=== PATIENT | male | born 1950 | race Two or more races ===

== ENCOUNTER 2022-11-20 18:16 | Emergency (ER) | payer MEDICARE, MEDICAID ==
[~2022-11-20] VITALS: Ht 177.8 cm; Wt 80.0 kg
[2022-11-20 18:50] LABS: Basophils # (auto) 0.1 10 ^3/uL (0-0.2); Basophils % (auto) 1.3 % (0.0-2.0); Eosinophils # (auto) 0 10 ^3/uL (0-0.8); Eosinophils % (auto) 0.5 % (0.0-7.0); Hematocrit 37.8 % (41.0-53.0); Hemoglobin 12.5 g/dL (13.5-17.5); Lymphocytes # (auto) 1.2 10 ^3/uL (0.4-5.4); Lymphocytes % (auto) 13.6 % (10.0-50.0); Mean Corpuscular Hemoglobin 30.2 pg (28.0-32.0); Mean Corpuscular Hgb Conc. 33.1 g/dL (32.0-36.0); Mean Corpuscular Volume 91.3 fL (80.0-100.0); Monocytes # (auto) 0.4 10 ^3/uL (0-1.3); Monocytes % (auto) 4.2 % (0.0-12.0); Neutrophils # (auto) 7.4 10 ^3/uL (1.6-8.6); Neutrophils % (auto) 80.4 % (37.0-80.0); Red Blood Cells 4.14 10^6/uL (4.5-5.90); White Blood Cell 9.2 10^3/uL (4.4-10.8)
[2022-11-20 19:02] LABS: Albumin 3.2 g/dL (3.4-5.0); Calcium 9.2 mg/dL (8.5-10.1); Magnesium 2.5 mg/dL (1.6-2.6); Potassium 4.5 mmol/L (3.5-5.1)
[2022-11-20 19:06] LABS: BUN/Creatinine Ratio 11.9 (10.0-20.0); Bilirubin, Total 0.3 mg/dL (0.2-1.0); Total Protein 6.6 g/dL (6.4-8.2)
[2022-11-20 19:07] LABS: INR 1.01 (0.9-1.15); Partial Thromboplastin Time 25.4 sec (24.6-33.4)
[2022-11-20] MEDS: HYDROcodone-ACET 10/325MG TAB PO ONE ×2 (20:53→23:31)
[2022-11-21 00:01] LABS: Urine Bacteria NONE SEEN /hpf (None Seen); Urine Blood Negative /uL (Negative); Urine Hyaline Cast FEW /lpf (0 - 2); Urine Mucus FEW (None Seen); Urine Specific Gravity 1.026 (1.001-1.035); Urine WBC 5 /hpf (0 - 3); Urine WBC Clumps PRESENT /hpf (None Seen)
[2022-11-21] MEDS ORDERED: HYDR-4902 PO (00:52)
[2022-11-21] MEDS ORDERED: HYDROcodone-ACET 10/325MG TAB PO ONE ×2 (07:45→08:15)
[2022-11-21 08:03] VITALS: BP 131/81
== END 2022-11-21 08:45 | disposition home or self-care (01) ==
LOC: ER 18:16
DX: R07.89 Other chest pain (principal); Z79.899 Other long term (current) drug therapy
CPT/HCPCS: 36415; 71045; 80053; 81001; 83735; 84484; 85025; 85610; 85730; 93005

== ENCOUNTER 2022-12-06 16:49 | Emergency (ER) | payer MEDICARE, OTHER ==
[~2022-12-06] VITALS: Ht 177.8 cm; Wt 84.8 kg
[~2022-12-06 16:49] MED LIST: HYDR-4902 PO
[2022-12-06 17:18] LABS: Basophils # (auto) 0.1 10 ^3/uL (0-0.2); Basophils % (auto) 0.7 % (0.0-2.0); Eosinophils # (auto) 0.2 10 ^3/uL (0-0.8); Eosinophils % (auto) 1.9 % (0.0-7.0); Hematocrit 40.1 % (41.0-53.0); Hemoglobin 13.2 g/dL (13.5-17.5); Lymphocytes # (auto) 1.9 10 ^3/uL (0.4-5.4); Lymphocytes % (auto) 22.6 % (10.0-50.0); Mean Corpuscular Hemoglobin 30.9 pg (28.0-32.0); Mean Corpuscular Hgb Conc. 32.9 g/dL (32.0-36.0); Monocytes # (auto) 0.6 10 ^3/uL (0-1.3); Monocytes % (auto) 7.5 % (0.0-12.0); Neutrophils # (auto) 5.8 10 ^3/uL (1.6-8.6); Neutrophils % (auto) 67.3 % (37.0-80.0); Red Blood Cells 4.26 10^6/uL (4.5-5.90); Red Cell Distribution Width 14.8 % (11.8-14.3); White Blood Cell 8.6 10^3/uL (4.4-10.8)
[2022-12-06 17:44] LABS: Albumin 3.6 g/dL (3.4-5.0); Potassium 3.7 mmol/L (3.5-5.1)
[2022-12-06 17:48] LABS: BUN/Creatinine Ratio 17.3 (10.0-20.0); Bilirubin, Total 0.3 mg/dL (0.2-1.0); Total Protein 6.9 g/dL (6.4-8.2)
[2022-12-06] MEDS ORDERED: LIDOCAINE 2% JELLY 11ml (GLYDO) ONE (18:01)
[2022-12-06 18:34] LABS: Urine Bacteria FEW /hpf (None Seen); Urine Blood Negative /uL (Negative); Urine Hyaline Cast FEW /lpf (0 - 2); Urine Mucus FEW (None Seen); Urine Specific Gravity 1.031 (1.001-1.035); Urine WBC 3 /hpf (0 - 3)
[2022-12-06] MEDS ORDERED: TAM04C PO (19:18)
[2022-12-06 21:50] VITALS: BP 155/96
== END 2022-12-06 22:11 | disposition home or self-care (01) ==
LOC: ER 16:49
DX: R33.9 Retention of urine, unspecified (principal); N42.89 Other specified disorders of prostate; R07.9 Chest pain, unspecified; M54.9 Dorsalgia, unspecified; Z88.6 Allergy status to analgesic agent
CPT/HCPCS: 36415; 51702; 80053; 81001; 84484; 85025; 93005

== ENCOUNTER 2022-12-08 06:09 | Emergency (ER) | payer MEDICARE, OTHER ==
[~2022-12-08] VITALS: Ht 177.8 cm; Wt 83.1 kg
[~2022-12-08 06:09] MED LIST changes: +TAM04C PO
[2022-12-08 06:32] VITALS: BP 148/93
[2022-12-08] MEDS ORDERED: AZITTAB PO (08:44)
[2022-12-08] MEDS ORDERED: BENZ100C19 PO (08:44)
== END 2022-12-08 09:16 | disposition home or self-care (01) ==
LOC: ER 06:09
DX: M25.50 Pain in unspecified joint (principal); R05.9 Cough, unspecified; R07.89 Other chest pain; Z79.899 Other long term (current) drug therapy
CPT/HCPCS: 71045

== ENCOUNTER 2022-12-11 13:59 | Emergency (ER) | payer MEDICARE, OTHER ==
[~2022-12-11] VITALS: Ht 177.8 cm; Wt 81.0 kg
[~2022-12-11 13:59] MED LIST changes: +AZITTAB PO; +BENZ100C19 PO
[2022-12-11] MEDS ORDERED: ACETAMINOPHEN 500 MG TAB PO ONE (14:30)
[2022-12-11 14:52] LABS: Basophils # (auto) 0 10 ^3/uL (0-0.2); Basophils % (auto) 0.8 % (0.0-2.0); Eosinophils # (auto) 0.1 10 ^3/uL (0-0.8); Eosinophils % (auto) 2.3 % (0.0-7.0); Hematocrit 41.4 % (41.0-53.0); Hemoglobin 13.6 g/dL (13.5-17.5); Lymphocytes # (auto) 2.2 10 ^3/uL (0.4-5.4); Lymphocytes % (auto) 35.7 % (10.0-50.0); Mean Corpuscular Hemoglobin 30.9 pg (28.0-32.0); Mean Corpuscular Hgb Conc. 32.8 g/dL (32.0-36.0); Monocytes # (auto) 0.4 10 ^3/uL (0-1.3); Monocytes % (auto) 6.4 % (0.0-12.0); Neutrophils # (auto) 3.4 10 ^3/uL (1.6-8.6); Neutrophils % (auto) 54.8 % (37.0-80.0); Nucleated Red Blood Cells % 0.2 %; Red Blood Cells 4.41 10^6/uL (4.5-5.90); Red Cell Distribution Width 14.4 % (11.8-14.3); White Blood Cell 6.2 10^3/uL (4.4-10.8)
[2022-12-11 15:06] LABS: Albumin 3.3 g/dL (3.4-5.0); Calcium 9.1 mg/dL (8.5-10.1); Potassium 3.9 mmol/L (3.5-5.1)
[2022-12-11 15:32] LABS: BUN/Creatinine Ratio 8.8 (10.0-20.0); Bilirubin, Total 0.3 mg/dL (0.2-1.0); Total Protein 6.9 g/dL (6.4-8.2)
[2022-12-11 17:32] LABS: Urine Bacteria NONE SEEN /hpf (None Seen); Urine Blood Negative /uL (Negative); Urine Specific Gravity 1.006 (1.001-1.035); Urine WBC <1 /hpf (0 - 3)
[2022-12-11 18:17] VITALS: BP 157/76
[2022-12-11] MEDS ORDERED: TAM04C PO (18:48)
[2022-12-11] MEDS ORDERED: HYDR-4902 PO (18:48)
== END 2022-12-11 18:56 | disposition home or self-care (01) ==
LOC: ER 13:59
DX: N40.0 Benign prostatic hyperplasia without lower urinary tract symptoms (principal); M79.18 Myalgia, other site; Z88.6 Allergy status to analgesic agent
CPT/HCPCS: 36415; 71046; 80053; 81001; 84484; 85025

== ENCOUNTER 2022-12-23 10:56 | Emergency (ER) | payer MEDICARE, OTHER ==
[~2022-12-23] VITALS: Ht 177.8 cm; Wt 81.0 kg
[2022-12-23 12:02] VITALS: BP 121/74
[2022-12-23] MEDS ORDERED: MELO7.5T9 PO (13:06)
[2022-12-23] MEDS ORDERED: ACETAMINOPHEN 500 MG TAB PO ONE (13:15)
== END 2022-12-23 13:15 | disposition home or self-care (01) ==
LOC: ER 10:56
DX: M19.011 Primary osteoarthritis, right shoulder (principal); S46.001A Unspecified injury of muscle(s) and tendon(s) of the rotator cuff of right shoulder, initial encounter; I10 Essential (primary) hypertension; Z88.6 Allergy status to analgesic agent; X58.XXXA Exposure to other specified factors, initial encounter; Y93.89 Activity, other specified; Y92.89 Other specified places as the place of occurrence of the external cause; Y99.8 Other external cause status
CPT/HCPCS: 73030

== ENCOUNTER 2023-01-14 21:32 | Emergency (ER) | payer MEDICARE, MEDICAID ==
[~2023-01-14] VITALS: Ht 175.3 cm; Wt 86.0 kg
[~2023-01-14 21:32] MED LIST changes: +MELO7.5T9 PO; -TAM04C PO; +TAMS-35 PO
[2023-01-15] MEDS ORDERED: HYDR-4798 PO (00:50)
[2023-01-15 00:53] VITALS: BP 145/86
[2023-01-15] MEDS ORDERED: HYDROcodone-ACET 10/325MG TAB PO ONE (01:00)
== END 2023-01-15 01:00 | disposition home or self-care (01) ==
LOC: ER 21:32
DX: M25.511 Pain in right shoulder (principal); M25.512 Pain in left shoulder; G89.29 Other chronic pain; M19.90 Unspecified osteoarthritis, unspecified site; Z88.6 Allergy status to analgesic agent

== ENCOUNTER 2023-01-26 20:53 | Emergency (ER) | payer MEDICARE, MEDICAID ==
[~2023-01-26] VITALS: Ht 180.3 cm; Wt 92.9 kg
[~2023-01-26 20:53] MED LIST changes: +HYDR-4798 PO
[2023-01-27] MEDS ORDERED: HYDR-4902 PO (00:29)
[2023-01-27 02:10] VITALS: BP 132/71
== END 2023-01-27 02:10 | disposition home or self-care (01) ==
LOC: ER 20:56
DX: M54.50 Low back pain, unspecified (principal); G89.29 Other chronic pain; Z76.0 Encounter for issue of repeat prescription; Z82.61 Family history of arthritis; Z88.0 Allergy status to penicillin; Z88.6 Allergy status to analgesic agent

== ENCOUNTER 2023-01-31 19:57 | Emergency (ER) | payer OTHER, MEDICAID ==
[~2023-01-31] VITALS: Ht 177.8 cm; Wt 68.0 kg
[2023-02-01 03:38] VITALS: BP 128/89
[2023-02-01] MEDS ORDERED: HYDROcodone-ACET 10/325MG TAB PO ONE (03:45)
[2023-02-01] MEDS ORDERED: HYDR-4798 PO (03:56)
== END 2023-02-01 04:10 | disposition home or self-care (01) ==
LOC: ER 20:00
DX: M25.552 Pain in left hip (principal); M25.551 Pain in right hip; Z76.0 Encounter for issue of repeat prescription; Z88.0 Allergy status to penicillin

== ENCOUNTER 2023-02-15 08:58 | Emergency (ER) | payer OTHER ==
[~2023-02-15] VITALS: Ht 177.8 cm; Wt 88.8 kg
[2023-02-15 09:05] VITALS: BP 147/84
[2023-02-15] MEDS ORDERED: HYDROcodone-ACET 10/325MG TAB PO ONE (09:45)
[2023-02-15] MEDS ORDERED: HYDR-4798 PO (11:16)
== END 2023-02-15 11:30 | disposition home or self-care (01) ==
LOC: ER 08:58
DX: M16.0 Bilateral primary osteoarthritis of hip (principal); M17.0 Bilateral primary osteoarthritis of knee; M19.012 Primary osteoarthritis, left shoulder; M19.011 Primary osteoarthritis, right shoulder; M25.552 Pain in left hip; M25.551 Pain in right hip; M25.512 Pain in left shoulder; M25.511 Pain in right shoulder; M25.562 Pain in left knee; M25.561 Pain in right knee; Z88.6 Allergy status to analgesic agent; Z88.0 Allergy status to penicillin; Z79.1 Long term (current) use of non-steroidal anti-inflammatories (NSAID); Z79.899 Other long term (current) drug therapy
CPT/HCPCS: 81002

== ENCOUNTER 2023-02-21 10:12 | Emergency (ER) | payer OTHER, MEDICAID ==
[~2023-02-21] VITALS: Ht 177.8 cm; Wt 86.9 kg
[2023-02-21] MEDS ORDERED: HYDROcodone-ACET 5/325MG TAB PO ONE (12:45)
[2023-02-21 13:42] VITALS: BP 141/69; PULSE 98; RESP 20; TEMP 98.2; O2SAT 96
[2023-02-21] MEDS ORDERED: CLIN300C70 PO (13:58)
[2023-02-21] MEDS ORDERED: ACET-1304 PO (13:58)
== END 2023-02-21 14:55 | disposition home or self-care (01) ==
LOC: ER 10:12
DX: K02.9 Dental caries, unspecified (principal); R51.9 Headache, unspecified; Z79.2 Long term (current) use of antibiotics; Z79.899 Other long term (current) drug therapy; Z88.0 Allergy status to penicillin; Z88.8 Allergy status to other drugs, medicaments and biological substances
CPT/HCPCS: 70486

== ENCOUNTER 2023-03-22 14:04 | Inpatient (IN) | payer OTHER, MEDICAID ==
[~2023-03-22] VITALS: Ht 177.8 cm; Wt 86.3 kg
[~2023-03-22 14:04] MED LIST changes: +ACET-1304 PO; +CLIN300C70 PO
[2023-03-22 15:22] LABS: Urine Bacteria NONE SEEN /hpf (None Seen); Urine Blood Negative /uL (Negative); Urine Clarity HAZY (Clear); Urine Color Yellow (Yellow); Urine Protein, UAD Negative (Negative); Urine Specific Gravity 1.019 (1.001-1.035); Urine Urobilinogen Normal (Negative); Urine WBC 2 /hpf (0 - 3); Urine pH 6.5 (5.0-8.0)
[2023-03-22 20:11] LABS: Mean Corpuscular Hgb Conc. 33.1 g/dL (32.0-36.0); Nucleated Red Blood Cells % 0.1 %; White Blood Cell 5.7 10^3/uL (4.4-10.8)
[2023-03-22 20:16] LABS: Basophils # (auto) 0 10 ^3/uL (0-0.2); Basophils % (auto) 0.7 % (0.0-2.0); Eosinophils # (auto) 0.1 10 ^3/uL (0-0.8); Eosinophils % (auto) 2.5 % (0.0-7.0); Hematocrit 42.1 % (41.0-53.0); Hemoglobin 13.9 g/dL (13.5-17.5); Lymphocytes # (auto) 1.6 10 ^3/uL (0.4-5.4); Lymphocytes % (auto) 28.8 % (10.0-50.0); Mean Corpuscular Hemoglobin 31.8 pg (28.0-32.0); Monocytes # (auto) 0.5 10 ^3/uL (0-1.3); Monocytes % (auto) 8.1 % (0.0-12.0); Neutrophils # (auto) 3.4 10 ^3/uL (1.6-8.6); Neutrophils % (auto) 59.9 % (37.0-80.0); Red Blood Cells 4.39 10^6/uL (4.5-5.90); Red Cell Distribution Width 14.9 % (11.8-14.3)
[2023-03-22 20:40] LABS: Albumin 3.6 g/dL (3.4-5.0); Calcium 9.1 mg/dL (8.5-10.1); Potassium 4.1 mmol/L (3.5-5.1)
[2023-03-22 20:43] LABS: BUN/Creatinine Ratio 11.1 (10.0-20.0); Bilirubin, Total 0.5 mg/dL (0.2-1.0); Total Protein 7.9 g/dL (6.4-8.2)
[2023-03-23] MEDS ORDERED: NITROGLYCERIN 0.4 MG SL TAB SL PRN (01:15)
[2023-03-23] MEDS ORDERED: MORPHINE SULFATE INJ 2 MG/ml SYRG IV PRN ×2 (01:15)
[2023-03-23] MEDS ORDERED: DOCUSATE SOD 100 MG CAP PO PRN (01:15)
[2023-03-23] MEDS ORDERED: D5W/SOD CHL 0.45% 1,000 ML IV ONE (01:15)
[2023-03-23] MEDS ORDERED: ACETAMINOPHEN 325 MG TAB PO PRN (01:15)
[2023-03-23] MEDS ORDERED: ONDANSETRON HCL 4 MG/2 ML VIAL IV PRN (01:15)
[2023-03-23] MEDS ORDERED: DEXTROSE (50%) 50ML SYRG IV PRN (04:00)
[2023-03-23 04:57] LABS: Basophils # (auto) 0 10 ^3/uL (0-0.2); Basophils % (auto) 0.6 % (0.0-2.0); Eosinophils # (auto) 0.2 10 ^3/uL (0-0.8); Eosinophils % (auto) 2.9 % (0.0-7.0); Hematocrit 39.3 % (41.0-53.0); Hemoglobin 13.2 g/dL (13.5-17.5); Lymphocytes # (auto) 1.6 10 ^3/uL (0.4-5.4); Lymphocytes % (auto) 31.4 % (10.0-50.0); Mean Corpuscular Hemoglobin 32.2 pg (28.0-32.0); Mean Corpuscular Hgb Conc. 33.5 g/dL (32.0-36.0); Mean Corpuscular Volume 96.1 fL (80.0-100.0); Monocytes # (auto) 0.4 10 ^3/uL (0-1.3); Monocytes % (auto) 7.7 % (0.0-12.0); Neutrophils % (auto) 57.4 % (37.0-80.0); Nucleated Red Blood Cells % 0.2 %; Red Blood Cells 4.09 10^6/uL (4.5-5.90); Red Cell Distribution Width 14.7 % (11.8-14.3); White Blood Cell 5.2 10^3/uL (4.4-10.8)
[2023-03-23 05:11] LABS: BUN/Creatinine Ratio 11.3 (10.0-20.0)
[2023-03-23] MEDS: InsuLIN REG 1unit/0.01ml Soln (100units/ml) SC SCH ×4 (06:00→23:27)
[2023-03-23] MEDS: ACCU-CHEK COMFORT CURVE STRIP VI SCH ×4 (06:16→23:27)
[2023-03-23 08:08] VITALS: PULSE 63; RESP 12; O2SAT 95
[2023-03-23 09:05] LABS: INR 1.06 (0.9-1.15); Partial Thromboplastin Time 30.8 SEC (24.5-34.5); Prothrombin Time 11.1 sec (9.3-11.8)
[2023-03-23] MEDS: ENOXAPARIN SOD 40 MG/0.4 ML SYRINGE SC SCH (10:21)
[2023-03-23] MEDS: TAMSULOSIN HYDROCHLORIDE 0.4 MG CAP PO SCH (17:17)
[2023-03-23 23:00] VITALS: BP 146/86; PULSE 85; RESP 14; TEMP 98.2; O2SAT 96
[2023-03-23 23:35] VITALS: PULSE 85; RESP 14; O2SAT 96
[2023-03-24] VITALS (8 sets, daily range): BP systolic 96–146; BP diastolic 66–86; PULSE 62–85; RESP 14–20; TEMP 98.1–98.8; O2SAT 92–100
[2023-03-24] MEDS: HYDROcodone-ACET 5/325MG TAB PO PRN ×3 (00:18→22:37)
[2023-03-24] MEDS: ACCU-CHEK COMFORT CURVE STRIP VI SCH ×3 (05:55→17:20)
[2023-03-24] MEDS: InsuLIN REG 1unit/0.01ml Soln (100units/ml) SC SCH ×3 (05:55→17:19)
[2023-03-24 06:12] LABS: Basophils # (auto) 0 10 ^3/uL (0-0.2); Basophils % (auto) 0.6 % (0.0-2.0); Eosinophils # (auto) 0.1 10 ^3/uL (0-0.8); Eosinophils % (auto) 1.8 % (0.0-7.0); Hematocrit 42.2 % (41.0-53.0); Hemoglobin 14.1 g/dL (13.5-17.5); Lymphocytes # (auto) 1.7 10 ^3/uL (0.4-5.4); Lymphocytes % (auto) 33.9 % (10.0-50.0); Mean Corpuscular Hgb Conc. 33.3 g/dL (32.0-36.0); Monocytes # (auto) 0.4 10 ^3/uL (0-1.3); Monocytes % (auto) 7.7 % (0.0-12.0); Neutrophils # (auto) 2.8 10 ^3/uL (1.6-8.6); Nucleated Red Blood Cells % 0.1 %; Red Cell Distribution Width 14.6 % (11.8-14.3)
[2023-03-24 06:32] LABS: BUN/Creatinine Ratio 8.7 (10.0-20.0); Calcium 8.8 mg/dL (8.5-10.1); Potassium 4.2 mmol/L (3.5-5.1)
[2023-03-24] MEDS: ENOXAPARIN SOD 40 MG/0.4 ML SYRINGE SC SCH (08:50)
[2023-03-24] MEDS ORDERED: CIPROFLOXACIN 400MG/200ML 200 ML IV ONE (13:00)
[2023-03-24] MEDS: IOHEXOL 300 MG/ML 100ML BOTTLE IJ ONE ×2 (13:39→14:40)
[2023-03-24] MEDS ORDERED: MIDAZOLAM HCL 2MG/2ML 2ml VIAL (1mg/ml) ONE (13:59)
[2023-03-24] MEDS ORDERED: fentaNYL CITRATE 100 MCG/2 ML VL ONE (13:59)
[2023-03-24] MEDS ORDERED: PROPOFOL 10 MG/ML 20 ML IV ONE ×2 (14:02→15:14)
[2023-03-24] MEDS ORDERED: ONDANSETRON HCL 4 MG/2 ML VIAL ONE (14:02)
[2023-03-24] MEDS ORDERED: LIDOCAINE 2% (LOCAL ANESTH.) PF 5ml SDV ONE (14:02)
[2023-03-24] MEDS ORDERED: IOHEXOL 300 MG/ML 100ML BOTTLE IJ ONE (14:40)
[2023-03-24] MEDS ORDERED: NEOSTIGMINE 1 MG/ML INJ (10mg/10ML VIAL) ONE (15:15)
[2023-03-24] MEDS ORDERED: GLYCOPYRROLATE 0.2 MG/ML 1ML VIAL ONE (15:15)
[2023-03-24] MEDS ORDERED: ONDANSETRON HCL 4 MG/2 ML VIAL IV PRN (15:30)
[2023-03-24] MEDS ORDERED: HYDROmorphone HCL 2 MG/ML VL/or syr IV PRN ×2 (15:30)
[2023-03-24] MEDS: TAMSULOSIN HYDROCHLORIDE 0.4 MG CAP PO SCH (17:19)
[2023-03-24] MEDS ORDERED: SUCCINYLCHOLINE CHLORIDE 20 MG/ML 10ML VIAL IV ONE (19:29)
[2023-03-24] MEDS ORDERED: ROCURONIUM 10MG/ML 10ML VIAL IV ONE (19:29)
[2023-03-24 20:37] LABS: Urine Bacteria FEW /hpf (None Seen); Urine Blood Negative /uL (Negative); Urine Clarity Clear (Clear); Urine Color Yellow (Yellow); Urine Protein, UAD Negative (Negative); Urine Urobilinogen Normal (Negative); Urine WBC <1 /hpf (0 - 3); Urine pH 6.5 (5.0-8.0)
[2023-03-25] MEDS: HYDROcodone-ACET 5/325MG TAB PO PRN (01:29)
[2023-03-25 05:00] VITALS: BP 105/67; PULSE 79; RESP 20; TEMP 98.4; O2SAT 100
[2023-03-25] MEDS: ACCU-CHEK COMFORT CURVE STRIP VI SCH ×4 (05:49→18:00)
[2023-03-25] MEDS: InsuLIN REG 1unit/0.01ml Soln (100units/ml) SC SCH ×4 (05:49→18:00)
[2023-03-25 06:55] LABS: Basophils # (auto) 0 10 ^3/uL (0-0.2); Basophils % (auto) 0.6 % (0.0-2.0); Eosinophils # (auto) 0.1 10 ^3/uL (0-0.8); Eosinophils % (auto) 1.4 % (0.0-7.0); Hematocrit 41.2 % (41.0-53.0); Hemoglobin 13.7 g/dL (13.5-17.5); Lymphocytes # (auto) 1.2 10 ^3/uL (0.4-5.4); Lymphocytes % (auto) 24.2 % (10.0-50.0); Mean Corpuscular Hemoglobin 31.8 pg (28.0-32.0); Mean Corpuscular Hgb Conc. 33.2 g/dL (32.0-36.0); Mean Corpuscular Volume 95.8 fL (80.0-100.0); Monocytes # (auto) 0.4 10 ^3/uL (0-1.3); Monocytes % (auto) 7.1 % (0.0-12.0); Neutrophils # (auto) 3.4 10 ^3/uL (1.6-8.6); Neutrophils % (auto) 66.7 % (37.0-80.0); Red Cell Distribution Width 14.2 % (11.8-14.3); White Blood Cell 5.1 10^3/uL (4.4-10.8)
[2023-03-25 06:59] LABS: BUN/Creatinine Ratio 10.3 (10.0-20.0); Calcium 8.5 mg/dL (8.5-10.1); Potassium 3.7 mmol/L (3.5-5.1)
[2023-03-25] MEDS ORDERED: BUPIVACAINE IMPLANT 3x100mg IL ONE (07:00)
[2023-03-25] MEDS: ENOXAPARIN SOD 40 MG/0.4 ML SYRINGE SC SCH (08:03)
[2023-03-25 08:30] VITALS: RESP 18
[2023-03-25 09:00] VITALS: BP 109/67; PULSE 63; RESP 18; TEMP 99; O2SAT 96
[2023-03-25] MEDS ORDERED: ONDANSETRON HCL 4 MG/2 ML VIAL ONE (10:26)
[2023-03-25] MEDS ORDERED: fentaNYL CITRATE 100 MCG/2 ML VL ONE (10:26)
[2023-03-25] MEDS ORDERED: SODIUM CHLORIDE LOCK 10 ML ONE (10:26)
[2023-03-25] MEDS ORDERED: LIDOCAINE 2% (LOCAL ANESTH.) PF 5ml SDV ONE (10:26)
[2023-03-25] MEDS ORDERED: PROPOFOL 10 MG/ML 20 ML IV ONE (10:26)
[2023-03-25] MEDS ORDERED: MEPERIDINE HCL (50 MG/ML) 1 ML VIAL ONE (10:26)
[2023-03-25] MEDS ORDERED: MIDAZOLAM HCL 2MG/2ML 2ml VIAL (1mg/ml) ONE (10:26)
[2023-03-25] MEDS ORDERED: DexAMETHasone SOD PHOS 10MG/1ML VIAL INJ ONE (10:26)
[2023-03-25] MEDS ORDERED: levoFLOXacin 500MG 100 ML IV ONE (10:45)
[2023-03-25] MEDS ORDERED: MORPHINE SULFATE INJ 2 MG/ml SYRG IV PRN (12:15)
[2023-03-25] MEDS ORDERED: HYDROmorphone HCL 2 MG/ML VL/or syr IV PRN ×2 (12:15)
[2023-03-25] MEDS ORDERED: METOCLOPRAMIDE HCL 5MG/ml INJ 2ml VIAL IV PRN (12:15)
[2023-03-25] MEDS ORDERED: SUGAMMADEX 200mg/2ml Vial (100MG/ML) IV ONE (13:58)
[2023-03-25] MEDS: TAMSULOSIN HYDROCHLORIDE 0.4 MG CAP PO SCH (18:00)
== END 2023-03-25 19:30 | disposition home or self-care (01) | DRG 395 ==
LOC: ER 14:04 → OVERFLOW 03-23 01:24 → WEST WING 03-23 22:11
PROVIDERS: ADMIT Nurse Practitioner Family; ATTEND Internal Medicine
PROC: 0TJB8ZZ Inspection of Bladder, Via Natural or Artificial Opening Endoscopic (ICD-10-PCS; principal; 2023-03-24 13:57)
PROC: BT1B1ZZ Fluoroscopy of Bladder and Urethra using Low Osmolar Contrast (ICD-10-PCS; 2023-03-24 13:57)
DX: K40.90 Unilateral inguinal hernia, without obstruction or gangrene, not specified as recurrent (principal); N30.90 Cystitis, unspecified without hematuria; E66.3 Overweight; M62.08 Separation of muscle (nontraumatic), other site; N40.0 Benign prostatic hyperplasia without lower urinary tract symptoms; Z79.899 Other long term (current) drug therapy; Z68.27 Body mass index [BMI] 27.0-27.9, adult; Z88.0 Allergy status to penicillin; Z88.6 Allergy status to analgesic agent
CPT/HCPCS: 36415; 71045; 74018; 74176; 76000; 80048; 80053; 81001; 82962; 83605; 83690; 85025; 85610; 85730; 87081; 93005; 93306; G0378; J0330; J1100; J1956; J2001; J2250; J2405; J2704

== ENCOUNTER 2023-03-27 18:58 | Emergency (ER) | payer OTHER, MEDICAID ==
[~2023-03-27] VITALS: Ht 177.8 cm; Wt 84.9 kg
[~2023-03-27 18:58] MED LIST changes: -AZITTAB PO; -CLIN300C70 PO; -HYDR-4902 PO; -MELO7.5T9 PO
[2023-03-27] MEDS ORDERED: KETOROLAC TROMETH 60MG/2ML VIAL IM ONE (21:30)
[2023-03-27] MEDS ORDERED: HYDROcodone-ACET 10/325MG TAB PO ONE (21:30)
[2023-03-27] MEDS ORDERED: ACET300T58 PO (22:00)
[2023-03-27 22:55] VITALS: BP 149/86; PULSE 78; RESP 20; TEMP 98
[2023-03-27 23:18] VITALS: O2SAT 99
== END 2023-03-27 22:55 | disposition home or self-care (01) ==
LOC: ER 18:58
DX: M19.012 Primary osteoarthritis, left shoulder (principal); M19.011 Primary osteoarthritis, right shoulder; M17.0 Bilateral primary osteoarthritis of knee; M16.0 Bilateral primary osteoarthritis of hip; Z79.899 Other long term (current) drug therapy; Z88.0 Allergy status to penicillin; Z88.8 Allergy status to other drugs, medicaments and biological substances
CPT/HCPCS: 96372; 99283; J1885

== ENCOUNTER 2023-04-07 13:42 | Emergency (ER) | payer OTHER, MEDICAID ==
[~2023-04-07] VITALS: Ht 177.8 cm; Wt 84.9 kg
[~2023-04-07 13:42] MED LIST changes: +ACET300T58 PO
[2023-04-07 14:32] LABS: Basophils # (auto) 0 10 ^3/uL (0-0.2); Basophils % (auto) 0.6 % (0.0-2.0); Eosinophils # (auto) 0.1 10 ^3/uL (0-0.8); Hematocrit 40.4 % (41.0-53.0); Hemoglobin 13.3 g/dL (13.5-17.5); Lymphocytes # (auto) 1.7 10 ^3/uL (0.4-5.4); Lymphocytes % (auto) 27.4 % (10.0-50.0); Mean Corpuscular Hemoglobin 31.4 pg (28.0-32.0); Mean Corpuscular Hgb Conc. 32.9 g/dL (32.0-36.0); Mean Corpuscular Volume 95.2 fL (80.0-100.0); Monocytes # (auto) 0.4 10 ^3/uL (0-1.3); Neutrophils # (auto) 3.8 10 ^3/uL (1.6-8.6); Nucleated Red Blood Cells % 0.1 %; Red Blood Cells 4.25 10^6/uL (4.5-5.90); Red Cell Distribution Width 13.9 % (11.8-14.3); White Blood Cell 6.1 10^3/uL (4.4-10.8)
[2023-04-07] MEDS ORDERED: HYDR-4902 PO (14:38)
[2023-04-07 15:08] LABS: Alanine Aminotransferase 14 U/L (7-40); Albumin 4.1 g/dL (3.2-4.8); Alkaline Phosphatase 85 U/L (46-116); Anion Gap 6.7 (5-15); Aspartate Aminotransferase < 8 U/L (13-40); BUN/Creatinine Ratio 7.9 (10.0-20.0); Bilirubin, Total 0.4 mg/dL (0.2-1.0); Blood Urea Nitrogen 7 mg/dL (9-23); Calcium 9.3 mg/dL (8.5-10.1); Carbon Dioxide 26.3 mmol/L (20-30); Chloride 108 mmol/L (98-107); Glucose 113 mg/dL (74-106); Potassium 3.9 mmol/L (3.5-5.1); Sodium 141 mmol/L (136-145)
[2023-04-07 15:09] LABS: Total Protein 7.3 g/dL (5.7-8.2)
[2023-04-07 15:28] VITALS: BP 143/85; PULSE 73; RESP 18; TEMP 98; O2SAT 98
== END 2023-04-07 15:30 | disposition home or self-care (01) ==
LOC: ER 13:42
DX: M25.552 Pain in left hip (principal); M25.551 Pain in right hip; Z59.00 Homelessness unspecified; Z88.0 Allergy status to penicillin; Z88.6 Allergy status to analgesic agent
CPT/HCPCS: 36415; 80053; 85025

== ENCOUNTER 2023-04-14 13:33 | Emergency (ER) | payer OTHER, MEDICAID ==
[~2023-04-14] VITALS: Ht 175.3 cm; Wt 81.8 kg
[~2023-04-14 13:33] MED LIST changes: +HYDR-4902 PO
[2023-04-14 14:00] VITALS: BP 121/81; PULSE 98; RESP 16; O2SAT 96
[2023-04-14 15:08] LABS: Basophils # (auto) 0.1 10 ^3/uL (0-0.2); Eosinophils # (auto) 0.2 10 ^3/uL (0-0.8); Eosinophils % (auto) 2.4 % (0.0-7.0); Hematocrit 40.9 % (41.0-53.0); Hemoglobin 13.5 g/dL (13.5-17.5); Lymphocytes % (auto) 30.4 % (10.0-50.0); Mean Corpuscular Hemoglobin 31.5 pg (28.0-32.0); Mean Corpuscular Volume 95.6 fL (80.0-100.0); Monocytes # (auto) 0.4 10 ^3/uL (0-1.3); Monocytes % (auto) 6.2 % (0.0-12.0); Neutrophils # (auto) 3.9 10 ^3/uL (1.6-8.6); Nucleated Red Blood Cells % 0.1 %; Red Blood Cells 4.27 10^6/uL (4.5-5.90); Red Cell Distribution Width 14.3 % (11.8-14.3); White Blood Cell 6.5 10^3/uL (4.4-10.8)
[2023-04-14 15:28] LABS: Alanine Aminotransferase 15 U/L (7-40); Albumin 4.1 g/dL (3.2-4.8); Alkaline Phosphatase 92 U/L (46-116); Anion Gap 5.8 (5-15); Aspartate Aminotransferase 14 U/L (13-40); BUN/Creatinine Ratio 13.1 (10.0-20.0); Blood Urea Nitrogen 11 mg/dL (9-23); Calcium 9.3 mg/dL (8.7-10.4); Carbon Dioxide 26.2 mmol/L (20-30); Chloride 106 mmol/L (98-107); Glucose 102 mg/dL (74-106); Potassium 4.4 mmol/L (3.5-5.1); Sodium 138 mmol/L (136-145)
[2023-04-14 15:29] LABS: Bilirubin, Total 0.4 mg/dL (0.2-1.0); Total Protein 6.9 g/dL (5.7-8.2)
[2023-04-14] MEDS ORDERED: DOCU-94 PO (15:53)
[2023-04-20] MEDS ORDERED: TRAM50TA2 PO (13:59)
== END 2023-04-14 18:16 | disposition home or self-care (01) ==
LOC: ER 13:33
DX: K40.90 Unilateral inguinal hernia, without obstruction or gangrene, not specified as recurrent (principal); K62.89 Other specified diseases of anus and rectum; Z88.0 Allergy status to penicillin; Z88.6 Allergy status to analgesic agent
CPT/HCPCS: 36415; 74176; 80053; 84484; 85025

== ENCOUNTER 2023-04-17 20:21 | Emergency (ER) | payer OTHER, MEDICAID ==
[~2023-04-17] VITALS: Ht 180.3 cm; Wt 84.5 kg
[2023-04-17 20:21] VITALS: BP 122/75; PULSE 85; RESP 16; O2SAT 98
[~2023-04-17 20:21] MED LIST changes: +DOCU-94 PO
[2023-04-20] MEDS ORDERED: TRAM50TA2 PO (13:59)
== END 2023-04-18 00:43 | disposition left against medical advice (07) ==
LOC: ER 20:25
DX: K62.89 Other specified diseases of anus and rectum (principal); Z53.21 Procedure and treatment not carried out due to patient leaving prior to being seen by health care provider

== ENCOUNTER 2023-05-07 18:55 | Emergency (ER) | payer OTHER, MEDICAID ==
[~2023-05-07] VITALS: Ht 177.8 cm; Wt 83.7 kg
[~2023-05-07 18:55] MED LIST changes: +TRAM50TA2 PO
[2023-05-07 19:03] VITALS: BP 126/84; TEMP 98.5
[2023-05-07] MEDS ORDERED: IBUP-1454 PO (22:26)
[2023-05-07 22:34] VITALS: PULSE 86; RESP 18; O2SAT 97
== END 2023-05-07 22:57 | disposition home or self-care (01) ==
LOC: ER 18:55
DX: G89.29 Other chronic pain (principal); M54.50 Low back pain, unspecified; M19.90 Unspecified osteoarthritis, unspecified site; Z59.00 Homelessness unspecified; Z79.899 Other long term (current) drug therapy; Z88.0 Allergy status to penicillin; Z88.8 Allergy status to other drugs, medicaments and biological substances

== ENCOUNTER 2023-05-21 19:16 | Emergency (ER) | payer OTHER, MEDICAID ==
[~2023-05-21] VITALS: Ht 172.7 cm; Wt 79.5 kg
[~2023-05-21 19:16] MED LIST changes: +IBUP-1454 PO
[2023-05-21] MEDS ORDERED: HYDROcodone-ACET 10/325MG TAB PO ONE (21:30)
[2023-05-22 00:05] VITALS: BP 138/90; PULSE 90; RESP 18; TEMP 98.3; O2SAT 97
== END 2023-05-22 00:17 | disposition home or self-care (01) ==
LOC: ER 19:16
DX: G89.29 Other chronic pain (principal); M54.42 Lumbago with sciatica, left side; M54.41 Lumbago with sciatica, right side; M19.90 Unspecified osteoarthritis, unspecified site; Z88.0 Allergy status to penicillin; Z88.8 Allergy status to other drugs, medicaments and biological substances; Z79.1 Long term (current) use of non-steroidal anti-inflammatories (NSAID); Z79.899 Other long term (current) drug therapy
CPT/HCPCS: 72100

== ENCOUNTER 2023-05-26 14:50 | Emergency (ER) | payer OTHER, MEDICAID ==
[~2023-05-26] VITALS: Ht 180.3 cm; Wt 85.8 kg
[2023-05-26 14:50] VITALS: BP 118/68; PULSE 78; RESP 18; TEMP 97.2; O2SAT 97
[2023-05-26] MEDS ORDERED: IBUP-1456 PO (16:35)
[2023-05-26] MEDS ORDERED: HYDROcodone-ACET 5/325MG TAB PO ONE (16:45)
== END 2023-05-26 17:04 | disposition home or self-care (01) ==
LOC: ER 14:50
DX: M16.0 Bilateral primary osteoarthritis of hip (principal); Z76.0 Encounter for issue of repeat prescription; Z79.1 Long term (current) use of non-steroidal anti-inflammatories (NSAID); Z79.899 Other long term (current) drug therapy; Z88.0 Allergy status to penicillin; Z88.8 Allergy status to other drugs, medicaments and biological substances

== ENCOUNTER 2023-07-14 13:54 | Emergency (ER) | payer OTHER, MEDICAID ==
[~2023-07-14] VITALS: Ht 180.3 cm; Wt 89.3 kg
[~2023-07-14 13:54] MED LIST changes: +IBUP-1456 PO
[2023-07-14] MEDS ORDERED: HYDR-4902 PO (14:52)
[2023-07-14 15:08] VITALS: BP 167/96; PULSE 74; RESP 17; TEMP 98.6; O2SAT 97
== END 2023-07-14 15:15 | disposition home or self-care (01) ==
LOC: ER 13:54
DX: G89.29 Other chronic pain (principal); M54.50 Low back pain, unspecified; Z59.00 Homelessness unspecified; Z79.1 Long term (current) use of non-steroidal anti-inflammatories (NSAID); Z79.899 Other long term (current) drug therapy; Z88.0 Allergy status to penicillin

== ENCOUNTER 2023-09-30 13:54 | Emergency (ER) | payer OTHER, MEDICAID ==
[~2023-09-30] VITALS: Ht 177.8 cm; Wt 87.3 kg
[~2023-09-30 13:54] MED LIST changes: +BENZ200C64 PO; +TAMIFLU PO
[2023-09-30] MEDS ORDERED: IBUP-1454 PO (14:21)
[2023-09-30] MEDS ORDERED: TAMS-35 PO (14:21)
[2023-09-30] MEDS ORDERED: HYDR-4902 PO (14:21)
[2023-09-30 14:46] VITALS: BP 159/91; PULSE 99; RESP 20; TEMP 98.5; O2SAT 95
== END 2023-09-30 14:47 | disposition home or self-care (01) ==
LOC: ER 13:54
DX: R39.15 Urgency of urination (principal); Z76.0 Encounter for issue of repeat prescription; Z88.0 Allergy status to penicillin; Z88.6 Allergy status to analgesic agent

== ENCOUNTER 2023-11-24 11:46 | Emergency (ER) | payer OTHER, MEDICAID ==
[~2023-11-24] VITALS: Ht 182.9 cm; Wt 68.1 kg
[2023-11-24] MEDS: HYDROcodone-ACET 5/325MG TAB PO ONE (12:47)
[2023-11-24 13:03] LABS: Urine Bacteria None Seen /hpf (None Seen)
[2023-11-24 13:04] VITALS: BP 107/67; PULSE 94; RESP 16; TEMP 98.6; O2SAT 96
[2023-11-24 13:26] LABS: Urine Blood Negative /uL (Negative); Urine Clarity Clear (Clear); Urine Color Yellow (Yellow); Urine Protein, UAD Negative (Negative); Urine Urobilinogen Normal (Negative); Urine WBC 1 /hpf (0 - 3); Urine pH 5.5 (5.0-9.0)
== END 2023-11-24 13:38 | disposition home or self-care (01) ==
LOC: ER 11:46
DX: R10.9 Unspecified abdominal pain (principal); G89.29 Other chronic pain; M19.90 Unspecified osteoarthritis, unspecified site; Z88.0 Allergy status to penicillin; Z88.8 Allergy status to other drugs, medicaments and biological substances; Z79.899 Other long term (current) drug therapy
CPT/HCPCS: 81001

== ENCOUNTER 2023-12-21 11:33 | Emergency (ER) | payer OTHER, MEDICAID ==
[~2023-12-21] VITALS: Ht 180.3 cm; Wt 88.1 kg
[2023-12-21 12:53] LABS: Urine Bacteria FEW /hpf (None Seen); Urine Blood Negative /uL (Negative); Urine Clarity Clear (Clear); Urine Color Light-Yellow (Yellow); Urine Protein, UAD Negative (Negative); Urine Specific Gravity 1.008 (1.001-1.035); Urine Urobilinogen Normal (Negative); Urine WBC 1 /hpf (0 - 3); Urine pH 5.5 (5.0-9.0)
[2023-12-21 14:42] VITALS: BP 149/89; PULSE 82; RESP 18; TEMP 97.9; O2SAT 97
== END 2023-12-21 14:50 | disposition home or self-care (01) ==
LOC: ER 11:33
DX: R10.2 Pelvic and perineal pain (principal); M19.90 Unspecified osteoarthritis, unspecified site; Z59.00 Homelessness unspecified; Z88.1 Allergy status to other antibiotic agents; Z88.8 Allergy status to other drugs, medicaments and biological substances; Z79.899 Other long term (current) drug therapy
CPT/HCPCS: 81001

== ENCOUNTER 2024-06-27 21:23 | Emergency (ER) | payer OTHER, MEDICAID ==
[~2024-06-27] VITALS: Ht 165.1 cm; Wt 68.2 kg
[2024-06-27 21:56] LABS: Basophils # (auto) 0 10 ^3/uL (0-0.2); Basophils % (auto) 0.6 % (0.0-2.0); Eosinophils # (auto) 0.2 10 ^3/uL (0-0.8); Eosinophils % (auto) 2.4 % (0.0-7.0); Hematocrit 39.9 % (41.0-53.0); Hemoglobin 13.3 g/dL (13.5-17.5); Lymphocytes # (auto) 1.3 10 ^3/uL (0.4-5.4); Lymphocytes % (auto) 20.3 % (10.0-50.0); Mean Corpuscular Hemoglobin 31.7 pg (28.0-32.0); Mean Corpuscular Hgb Conc. 33.3 g/dL (32.0-36.0); Mean Corpuscular Volume 95.3 fL (80.0-100.0); Monocytes # (auto) 0.6 10 ^3/uL (0-1.3); Monocytes % (auto) 8.7 % (0.0-12.0); Neutrophils # (auto) 4.5 10 ^3/uL (1.6-8.6); Nucleated Red Blood Cells % 0.1 %; Platelet Count (auto) 243 10^3/uL (140-450); Red Blood Cells 4.18 10^6/uL (4.5-5.90); White Blood Cell 6.6 10^3/uL (4.4-10.8)
--- NOTE | 2024-06-27 22:00 | ED.PDOC ---
History of Present Illness HPI Comments 74 y/o M, with a Hx of arthritis, prostate CA - untreated, HTN, obesity, and homelessness, is BIBA for c/o sternal chest and bilateral arm pain and dizzy spells, today. Patient endorses on unprovoked onset of intermittent sternal chest pain that radiates to both of his arms w/associated dizzy spells for 1 we ek. Patient comments on most recent onset of symptoms occurring after getting off a public bus and describes it an 8/10, squeezing and throbbing in quality. Patient endorses on having any shortness of breath, vision or speech changes, nausea, vomiting, fever, or other associated symptoms or modifiers at this time. Chief Complaint: Body Pain Time Seen by MD: 21:30 Primary Care Provider: NONE Reviewed Notes: Nurses Notes, Shoe Cleaner Notes, Medications, Allergies Allergies: Coded Allergies: Ibuprofen (Verified Allergy, Unknown, 09/30/23) Penicillins (Verified Allergy, Unknown, 01/26/23) Home Meds Active Scripts Hydrocodone-Acetaminophen (Hydrocodone Bitartrate/AC 5-325 mg) 1 Tab Tab, 1 TAB PO BID, #10 TAB Prov:MIHAI SALAZAR 11/24/23 Hydrocodone-Acetaminophen (Hydrocodone Bitartrate/AC 5-325 mg) 1 Tab Tab, 1 TAB PO BID, #14 TAB Prov:MIHAI SALAZAR 10/29/23 Hydrocodone-Acetaminophen (Hydrocodone Bitartrate/AC 5-325 mg) 1 Tab Tab, 1 TAB PO Q8HP PRN, #25 TAB Prov:JUSTINO YEAGER PAC 09/30/23 Ibuprofen (Ibuprofen) 600 Mg Tab, 1 TAB PO TID, #90 TAB 1 Refill Prov:JUSTINO YEAGER PAC 09/30/23 Tamsulosin Hcl (Flomax) 0.4 Mg Cap, 1 CAP PO DAILY for 30 Days, #30 CAP 1 Refill Prov:JUSTINO YEAGER PAC 09/30/23 Benzonatate (Benzonatate) 200 Mg Cap, 1 CAP PO TID, #30 CAP Prov:MIHAI SALAZAR 08/20/23 Acetaminophen (Tylenol Extra Strength) 500 Mg Tab, 500 MG PO QID, #30 TAB Prov:MIHAI SALAZAR 08/20/23 Oseltamivir Phosphate (Tamiflu) 75 Mg Cap, 75 MG PO BID, #10 CAP Prov:MIHAI SALAZAR 08/20/23 Hydrocodone-Acetaminophen (Hydrocodone Bitartrate/AC 5-325 mg) 1 Tab Tab, 1 TAB PO Q6HP PRN, #20 TAB Prov:JUSTINO YEAGER PAC 07/14/23 Ibuprofen (Ibuprofen) 800 Mg Tab, 1 TAB PO TID, #30 TAB Prov:MIHAI SALAZAR 05/26/23 Ibuprofen (Ibuprofen) 600 Mg Tab, 1 TAB PO Q6HP PRN, #30 TAB Prov:JUSTINO YEAGER PAC 05/07/23 Tramadol Hcl (Tramadol Hcl) 50 Mg Tab, 50 MG PO Q8HP PRN, #10 TAB Prov:JUSTINO YEAGER PAC 04/20/23 Docusate Sodium (Colace) 100 Mg Cap, 1 CAP PO BID for 5 Days, #10 CAP Prov:IVONNE JEFFERY MD 04/14/23 Hydrocodone-Acetaminophen (Hydrocodone Bitartrate/AC 5-325 mg) 1 Tab Tab, 1 TAB PO Q8HP PRN for 7 Days, #21 TAB Prov:ANNMARIE SCRUGGS MD 04/07/23 Acetaminophen W/ Codeine (Tylenol #4 W/Codeine) 1 Tab Tb, 1 TAB PO Q8HP PRN, #15 TAB Prov:JUSTINO YEAGER PAC 03/27/23 Acetaminophen (Tylenol Extra Strength) 500 Mg Tab, 500 MG PO BIDP PRN for 10 Days, #20 TAB 0 Refills Prov:ANASTACIA OWENS PROGRAM DIRECTOR/AIR PERSONALITY 02/21/23 Hydrocodone-Acetaminophen (Hydrocodone Bitartrate/AC 10-325 mg) 1 Tab Tab, 1 TAB PO Q4HP PRN, #15 TAB 0 Refills Prov:ELIANA GUDINO PA 01/15/23 Benzonatate (Tessalon Perles) 100 Mg Cap, 1 CAP PO TID PRN, #21 CAP Prov:MARIPOSA NESBITTP 12/08/22 Tamsulosin Hcl (Flomax) 0.4 Mg Cap, 1 CAP PO DAILY, #30 CAP 11 Refills Prov:ANNMARIE SCRUGGS MD 12/06/22 Information Source: Patient, Emergency Med Personnel Mode of Arrival: EMS Severity: Moderate Timing: Weeks Duration: Since onset Prehospital treatment: None Past Medical History PAST MEDICAL HISTORY: Arthritis, Cancer (prostate CA - untreated ), HTN Past Medical History (Other): obesity Surgical History: Denies all surgeries Family History Family History: Unknown Social History Smoker: Non-Smoker Alcohol: Denies ETOH Use Drugs: Denies Drug Use Lives In: Homeless Constitutional: denies: chills, diaphoresis, fatigue, fever, malaise, sweats, weakness, others EENTM: denies: blurred vision, double vision, ear bleeding, ear discharge, ear drainage, ear pain, ear ringing, eye pain, eye redness, hearing loss, mouth pain, mouth swelling, nasal discharge, nose bleeding, nose congestion, nose pain, photophobia, tearing, throat pain, throat swelling, voice changes, others Respiratory: denies: cough, hemoptysis, orthopnea, SOB at rest, shortness of breath, SOB with excertion, stridor, wheezing, others Cardiovascular: reports: chest pain, dizzy spells, others (bilateral arm pain); denies: diaphoresis, Dyspnea on exertion, edema, irregular heart beat, left arm pain, lightheadedness, palpitations, PND, syncope Gastrointestinal: denies: abdomen distended, abdominal pain, blood streaked bowels, constipated, diarrhea, dysphagia, difficulty swallowing, hematemesis, melena, nausea, poor appetite, poor fluid intake, rectal bleeding, rectal pain, vomiting, others Genitourinary: denies: burning, dysuria, flank pain, frequency, hematuria, incontinence, penile discharge, penile sore, pain, testicle pain, testicle swelling, urgency, others Neurological: denies: dizziness, fainting, headache, left sided numbness, left sided weakness, numbness, paresthesia, pre-existing deficit, right sided numbness, right sided weakness, seizure, speech problems, tingling, tremors, weakness, others Musculoskeletal: denies: back pain, gout, joint pain, joint swelling, muscle pain, muscle stiffness, neck pain, others Integumetry: denies: bruises, change in color, change in hair/nails, dryness, laceration, lesions, lumps, rash, wounds, others Allergic/Immunocompromised: denies: Difficulty Healing, Frequent Infections, Hi ves, Itching, others Hematologic/Lymphatic: denies: anemia, blood clots, easy bleeding, easy bruising, swollen glands, others Endocrine: denies: excessive hunger, excessive sweating, excessive thirst, excessive urination, flushing, intolerance to cold, intolerance to heat, unexplained weight gain, unexplained weight loss, others Psychiatric: denies: anxiety, bipolar disorder, depression, hopeless, panic disorder, schizophrenia, sleepless, suicidal, others All Other Systems: Reviewed and Negative Physical Exam General Appearance: No Apparent Distress HEENT: Normal ENT Inspection, Pharynx Normal, TMs Normal Neck: Full Range of Motion, Non-Tender, Normal, Normal Inspection Respiratory: Chest Non-Tender, Lungs Clear, No Accessory Muscle Use, No Respiratory Distress, Normal Breath Sounds Cardiovascular: No Edema, No JVD, No Murmur, No Gallop, Normal Peripheral Pulses, Regular Rate/Rhythm Breast Exam: Deferred Gastrointestinal: No Organomegaly, Non Tender, No Pulsatile Mass, Normal Bowel Sounds, Soft Genitalia: Deferred Pelvic: Deferred Rectal: Deferred Extremities: No calf tenderness, Normal capillary refill, Normal inspection, Normal range of motion, Non-tender, No pedal edema Musculoskeletal : Apperance: Normal Neurologic: Alert, pharmacy associate II-XII nml as Tested, No Motor Deficits, Normal Affect, Normal Mood, No Sensory Deficits Cerebellar Function: Normal Reflexes: Normal Skin: Dry, Normal Color, Warm Lymphatic: No Adenopathy Was a procedure done? Was a procedure done?: No EKG EKG : Pulse Rate (adult): 79 [place]: Normal Cardiac Rhythm: NSR Block: None Hypertrophy: None ST: Normal Differential Dx Considerations may include: SD, ACS, PE, anxiety, angina, costochondritis, pericarditis, gastritis, gastroe nteritis, musculoskeletal pain X-Ray, Labs, Meds, VS Vital Signs Date Time Temp Pulse Resp B/P (MAP) Pulse Ox O2 Delivery O2 Flow Rate FiO2 06/27/24 22:00 79 06/27/24 21:31 79 06/27/24 21:25 97.9 78 16 161/90 (113) 97 Lab Test 06/27/24 21:47 Range/Units White Blood Count 6.6 4.4-10.8 10^3/uL Red Blood Count 4.18 L 4.5-5.90 10^6/uL Hemoglobin 13.3 L 13.5-17.5 g/dL Hematocrit 39.9 L 41.0-53.0 % Mean Corpuscular Volume 95.3 80.0-100.0 fL Mean Corpuscular Hemoglobin 31.7 28.0-32.0 pg Mean Corpuscular Hemoglobin Concent 33.3 32.0-36.0 g/dL Red Cell Distribution Width 14.0 11.8-14.3 % Platelet Count 243 140-450 10^3/uL Mean Platelet Volume 7.4 6.9-10.8 fL Neutrophils (%) (Auto) 68.0 37.0-80.0 % Lymphocytes (%) (Auto) 20.3 10.0-50.0 % Monocytes (%) (Auto) 8.7 0.0-12.0 % Eosinophils (%) (Auto) 2.4 0.0-7.0 % Basophils (%) (Auto) 0.6 0.0-2.0 % Neutrophils # (Auto) 4.5 1.6-8.6 10 ^3/uL Lymphocytes # (Auto) 1.3 0.4-5.4 10 ^3/uL Monocytes # (Auto) 0.6 0-1.3 10 ^3/uL Eosinophils # (Auto) 0.2 0-0.8 10 ^3/uL Basophils # (Auto) 0 0-0.2 10 ^3/uL Nucleated Red Blood Cells 0.1 % Sodium Level 142 136-145 mmol/L Potassium Level 4.5 3.5-5.1 mmol/L Chloride Level 108 H 98-107 mmol/L Carbon Dioxide Level 28 20-31 mmol/L Anion Gap 6 5-15 Blood Urea Nitrogen 22 9-23 mg/dL Creatinine 1.31 H 0.700-1.30 mg/dL Glomerular Filtration Rate Calc 57 >90 mL/min BUN/Creatinine Ratio 16.8 10.0-20.0 Serum Glucose 83 74-106 mg/dL Calcium Level 10.5 H 8.7-10.4 mg/dL Troponin I High Sensitivity 7 </=54 ng/L PROCEDURE(s): CXR2 - CHEST TWO VIEWS ROUTINE IMPRESSION: 1. No evidence of acute disease. The CBC is within normal limits The chemistry panel is within normal limits The troponin level is negative The patient was being discharged and will follow up with the primary care doctor The patient will return to the emergency department's the condition worsens. Images Reviewed?: Images reviewed and evaluated by me Time of 1ST Reevaluation: 22:00 Reevaluation 1ST: Unchanged Patient Education/Counseling: Diagnosis, Treatment, Prognosis, Need For Follow Up Family Education/Counseling: No Family Present Departure 1 Departure Time of Disposition: 22:56 Impression: Primary Impression: Chronic pain syndrome Disposition: 01 HOME / SELF CARE / HOMELESS Condition: Fair Discharged With: Self Critical Care Note Critical Care Time?: No Stability Stability form required: No Heart Score Heart Score: Heart Score Response (Comments) Value History Slightly Suspicious 0 EKG Normal 0 Age >65 2 Risk Factors >3 or Hx ASHD 2 Troponin Normal limit 0 Total 4 I personally scribed for ANNMARIE SCRUGGS MD ([email or web address]) on 06/27/24 at 22:00. Electronically submitted by Malcom Morales ([email or web address]). I personally scribed for ANNMARIE SCRUGGS MD ([email or web address]) on 06/27/24 at 22:44. Electronically submitted by Malcom Morales ([email or web address]). ANNMARIE SCRUGGS MD Jun 27, 2024 22:00
[2024-06-27 22:04] LABS: Chloride 108 mmol/L (98-107); Potassium 4.5 mmol/L (3.5-5.1); Sodium 142 mmol/L (136-145)
[2024-06-27 22:05] LABS: Anion Gap 6 (5-15); Calcium 10.5 mg/dL (8.7-10.4); Carbon Dioxide 28 mmol/L (20-31)
[2024-06-27 22:10] LABS: BUN/Creatinine Ratio 16.8 (10.0-20.0); Blood Urea Nitrogen 22 mg/dL (9-23); Glucose 83 mg/dL (74-106)
--- NOTE | 2024-06-27 22:14 | DVH ---
CHEST RADIOGRAPH Indication: CP Technique: Frontal and lateral view of the chest was obtained Comparison: XY CHEST TWO VIEWS ROUTINE on DOS: 08/20/23, XY CHEST TWO VIEWS ROUTINE on DOS: 12/11/22 FINDINGS: Lines and Tubes: None Lungs: Clear Pleura: No effusion. No pneumothorax. Cardiomediastinal contours: Unremarkable Bones: Unremarkable IMPRESSION: 1. No evidence of acute disease.
[2024-06-27 23:34] VITALS: BP 145/84; PULSE 82; RESP 18; TEMP 97.8; O2SAT 97
[2024-06-27] MEDS: HYDROcodone-ACET 5/325MG TAB PO ONE (23:40)
--- NOTE | 2024-06-28 04:16 | ECG ---
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
--- NOTE | 2024-06-28 06:38 | ECG ---
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
== END 2024-06-27 23:45 | disposition home or self-care (01) ==
LOC: EDBD 21:23 → ER 21:23
DX: G89.4 Chronic pain syndrome (principal); R06.02 Shortness of breath; R42 Dizziness and giddiness; I10 Essential (primary) hypertension; M19.90 Unspecified osteoarthritis, unspecified site; E66.9 Obesity, unspecified; Z59.00 Homelessness unspecified; Z79.1 Long term (current) use of non-steroidal anti-inflammatories (NSAID); Z85.46 Personal history of malignant neoplasm of prostate; Z88.0 Allergy status to penicillin; Z88.6 Allergy status to analgesic agent; Z68.25 Body mass index [BMI] 25.0-25.9, adult
CPT/HCPCS: 36415; 71046; 80048; 84484; 85025; 93005

== ENCOUNTER 2024-06-29 17:06 | Emergency (ER) | payer OTHER, MEDICAID ==
[~2024-06-29] VITALS: Ht 180.3 cm; Wt 90.9 kg
[2024-06-29] MEDS: ALBUTEROL SULF 2.5 MG/0.5ML(0.5%) NEB SOLN NEB ONE (17:30)
[2024-06-29] MEDS: IPRATROPIUM BROM 0.5 MG/2.5ML INH SOL NEB ONE (17:30)
[2024-06-29 17:50] LABS: Basophils # (auto) 0.1 10 ^3/uL (0-0.2); Basophils % (auto) 0.5 % (0.0-2.0); Eosinophils # (auto) 0.1 10 ^3/uL (0-0.8); Eosinophils % (auto) 0.7 % (0.0-7.0); Hematocrit 40.4 % (41.0-53.0); Hemoglobin 13.4 g/dL (13.5-17.5); Lymphocytes # (auto) 0.7 10 ^3/uL (0.4-5.4); Mean Corpuscular Hemoglobin 31.6 pg (28.0-32.0); Mean Corpuscular Volume 95.7 fL (80.0-100.0); Monocytes # (auto) 0.5 10 ^3/uL (0-1.3); Monocytes % (auto) 4.3 % (0.0-12.0); Neutrophils # (auto) 9.2 10 ^3/uL (1.6-8.6); Neutrophils % (auto) 87.5 % (37.0-80.0); Platelet Count (auto) 247 10^3/uL (140-450); Red Blood Cells 4.23 10^6/uL (4.5-5.90); Red Cell Distribution Width 14.2 % (11.8-14.3); White Blood Cell 10.5 10^3/uL (4.4-10.8)
[2024-06-29 17:58] LABS: Chloride 108 mmol/L (98-107); Potassium 3.8 mmol/L (3.5-5.1); Sodium 142 mmol/L (136-145)
[2024-06-29 17:59] LABS: Anion Gap 10 (5-15); Calcium 9.9 mg/dL (8.7-10.4); Carbon Dioxide 24 mmol/L (20-31)
[2024-06-29 18:04] LABS: BUN/Creatinine Ratio 7.4 (10.0-20.0); Blood Urea Nitrogen 12 mg/dL (9-23); Glucose 91 mg/dL (74-106)
--- NOTE | 2024-06-29 18:50 | DVH ---
CHEST RADIOGRAPH Indication: Shortness of breath Technique: Single frontal view of the chest was obtained Comparison: XY CHEST PORTABLE on DOS: 03/24/23, XY CHEST XRAY 1 VIEW on DOS: 12/08/22, XY CHEST PORTABLE on DOS: 11/20/22 FINDINGS: Lines and Tubes: None Lungs: Bilateral perihilar peribronchial thickening is noted findings may represent bronchitis. Pleura: No effusion. No pneumothorax. Cardiomediastinal contours: Unremarkable Bones: No acute osseous abnormality. IMPRESSION: 1. Findings suggest bronchitis. HS:Y
--- NOTE | 2024-06-29 19:39 | ED.PDOC ---
SOB-HPI HPI Comments This patient is a pleasant 74-year-old male who I am very familiar with due to multiple visits to this facility for similar complaints arrives today again today via EMS with complaints of shortness a breath. Per EMS, patient was at a bus stop asleep when someone called due to what they believe were shortness a breath concerns. Patient states he was seen at another local facility a week ago and was diagnosed with pneumonia. Patient states he has not completed his antibiotics. Patient denies any fever nausea or vomiting. Vital signs were stable on arrival and patient was satting at 95% on room air. Chief Complaint: Shortness of Breath Time Seen by MD: 17:14 Primary Care Provider: NONE Reviewed notes: Nurses Notes, Compliance Tester Notes Information Source: Patient, Emergency Med Personnel Mode of Arrival: EMS Severity: Moderate Timing: Hours Duration: Since onset Context: At Rest PE Risk Factors: None History of: Recent URI, Recent Antibiotic Prehospital treatment: 12 Lead EKG Modifying Factors: Exertion Associated Signs and Symptoms: Cough If cough with SOB: Non-Productive Past Medical History PAST MEDICAL HISTORY: Arthritis, Cancer, HTN Surgical History: Denies all surgeries Family History Family History: Unknown Social History Smoker: Non-Smoker Alcohol: Denies ETOH Use Drugs: Denies Drug Use Lives In: Homeless Constitutional: denies: chills, diaphoresis, fatigue, fever, malaise, sweats, weakness, others EENTM: denies: blurred vision, double vision, ear bleeding, ear discharge, ear drainage, ear pain, ear ringing, eye pain, eye redness, hearing loss, mouth pain, mouth swelling, nasal discharge, nose bleeding, nose congestion, nose pain, photophobia, tearing, throat pain, throat swelling, voice changes, others Respiratory: reports: cough, shortness of breath; denies: hemoptysis, orthopnea, SOB at rest, SOB with excertion, stridor, wheezing, others Cardiovascular: denies: chest pain, dizzy spells, diaphoresis, Dyspnea on exertion, edema, irregular heart beat, left arm pain, lightheadedness, palpitations, PND, syncope, others Gastrointestinal: denies: abdomen distended, abdominal pain, blood streaked bowels, constipated, diarrhea, dysphagia, difficulty swallowing, hematemesis, melena, nausea, poor appetite, poor fluid intake, rectal bleeding, rectal pain, vomiting, others Genitourinary: denies: burning, dysuria, flank pain, frequency, hematuria, incontinence, penile discharge, penile sore, pain, testicle pain, testicle swelling, urgency, others Neurological: denies: dizziness, fainting, headache, left sided numbness, left sided weakness, numbness, paresthesia, pre-existing deficit, right sided numbness, right sided weakness, seizure, speech problems, tingling, tremors, weakness, others Musculoskeletal: denies: back pain, gout, joint pain, joint swelling, muscle pain, muscle stiffness, neck pain, others Integumetry: denies: bruises, change in color, change in hair/nails, dryness, laceration, lesions, lumps, rash, wounds, others Allergic/Immunocompromised: denies: Difficulty Healing, Frequent Infections, Hives, Itching, others Hematologic/Lymphatic: denies: anemia, blood clots, easy bleeding, easy bruising, swollen glands, others Endocrine: denies: excessive hunger, excessive sweating, excessive thirst, excessive urination, flushing, intolerance to cold, intolerance to heat, unexplained weight gain, unexplained weight loss, others Psychiatric: denies: anxiety, bipolar disorder, depression, hopeless, panic disorder, schizophrenia, sleepless, suicidal, others Physical Exam General Appearance: Mild Distress (Patient appears to be in mild distress at time of evaluation.), Normal HEENT: Normal ENT Inspection, Pharynx Normal, TMs Normal Neck: Full Range of Motion, Non-Tender, Normal, Normal Inspection Respiratory: Chest Non-Tender, No Accessory Muscle Use, No Respiratory Distress, Normal Breath Sounds, Other (Mild rhonchi appreciated right middle lobe and left upper lobe. No accessory muscle use. 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 Was a procedure done?: No Differential Dx Differential Diagnosis: Anxiety, Bronchitis, Pneumonia, URI X-Ray, Labs, Meds, VS Vital Signs Date Time Temp Pulse Resp B/P (MAP) Pulse Ox O2 Delivery O2 Flow Rate FiO2 06/29/24 20:23 Room Air* 0 21 06/29/24 20:22 87 18 117/62 (80) 99 06/29/24 17:27 19 99 Nasal Cannula* 2 28 06/29/24 17:15 98.6 87 20 103/59 (74) 95 Lab Test 06/29/24 17:33 Range/Units White Blood Count 10.5 # 4.4-10.8 10^3/uL Red Blood Count 4.23 L 4.5-5.90 10^6/uL Hemoglobin 13.4 L 13.5-17.5 g/dL Hematocrit 40.4 L 41.0-53.0 % Mean Corpuscular Volume 95.7 80.0-100.0 fL Mean Corpuscular Hemoglobin 31.6 28.0-32.0 pg Mean Corpuscular Hemoglobin Concent 33.0 32.0-36.0 g/dL Red Cell Distribution Width 14.2 11.8-14.3 % Platelet Count 247 140-450 10^3/uL Mean Platelet Volume 7.5 6.9-10.8 fL Neutrophils (%) (Auto) 87.5 H 37.0-80.0 % Lymphocytes (%) (Auto) 7.0 L 10.0-50.0 % Monocytes (%) (Auto) 4.3 0.0-12.0 % Eosinophils (%) (Auto) 0.7 0.0-7.0 % Basophils (%) (Auto) 0.5 0.0-2.0 % Neutrophils # (Auto) 9.2 H 1.6-8.6 10 ^3/uL Lymphocytes # (Auto) 0.7 0.4-5.4 10 ^3/uL Monocytes # (Auto) 0.5 0-1.3 10 ^3/uL Eosinophils # (Auto) 0.1 0-0.8 10 ^3/uL Basophils # (Auto) 0.1 0-0.2 10 ^3/uL Nucleated Red Blood Cells 0.0 % D-Dimer, Quantitative 0.74 H 0.0-0.49 mg/L FEU Sodium Level 142 136-145 mmol/L Potassium Level 3.8 3.5-5.1 mmol/L Chloride Level 108 H 98-107 mmol/L Carbon Dioxide Level 24 20-31 mmol/L Anion Gap 10 5-15 Blood Urea Nitrogen 12 # 9-23 mg/dL Creatinine 1.62 H 0.700-1.30 mg/dL Glomerular Filtration Rate Calc 44 >90 mL/min BUN/Creatinine Ratio 7.4 L 10.0-20.0 Serum Glucose 91 74-106 mg/dL Calcium Level 9.9 8.7-10.4 mg/dL Troponin I High Sensitivity 5 </=54 ng/L Current Medications Medications (Trade) Dose Ordered Sig/Madiha Route Start Time Stop Time Status Last Admin Albuterol (Ventolin Medneb) 2.5 mg ONCE ONCE NEB 06/29/24 17:30 06/29/24 17:31 DC 06/29/24 17:30 Ipratropium [place] (Atrovent Medneb) 0.5 mg ONCE ONCE NEB 06/29/24 17:30 06/29/24 17:31 DC 06/29/24 17:30 Dexamethasone Sodium Phosphate (Decadron Injection) 10 mg ONCE ONCE IM 06/29/24 17:30 06/29/24 17:31 DC 06/29/24 20:33 Azithromycin (Zithromax Tablet) 500 mg ONCE ONCE PO 06/29/24 19:30 06/29/24 19:31 DC 06/29/24 20:27 X-Ray, Labs, Meds, VS Comment All studies performed the ED today were evaluated by me personally. EKG was remarkable for sinus rhythm with a rate of 86. Multiple ventricular premature complexes noted as well as probable left atrial enlargement. Incomplete right bundle-branch block as well as mild RSR in V1 or V2. UT interval was 179 and QT interval was 376. Unremarkable for any acute process. The serum laboratories were unremarkable for any acute systemic process. Imaging studies of the chest revealed a possible bronchitis. Patient was given a dose of azithromycin prior to discharge. Advised patient utilize this new antibiotic as directed until completion. Time of 1ST Reevaluation: 20:51 Reevaluation 1ST: Improved Consultation: PCP Patient Education/Counseling: Diagnosis, Treatment Family Education/Counseling: Diagnosis, Treatment Departure 1 Departure Time of Disposition: 20:51 Impression: Primary Impression: Acute bronchitis Disposition: HOME / SELF CARE / HOMELESS Condition: Stable Additional Instructions: Advised patient utilize antibiotics as directed until completion as well as additional medication as needed. e-Prescriptions Albuterol Sulfate (Albuterol Sulfate Hfa) 108 Mcg/Act Aer 108 MCG IN Q4HP PRN, #1 AER Prov: JUSTINO YEAGER PAC 06/29/24 Azithromycin (Azithromycin) 500 Mg Tab 1 TAB PO DAILY for 5 Days, #5 TAB Prov: JUSTINO YEAGER PAC 06/29/24 Discharged With: Self Critical Care Note Critical Care Time?: No Stability Stability form required: No Heart Score Heart Score: Heart Score Response (Comments) Value History N/A [address]-Deviation 2 Age >65 2 Risk Factors 1 or 2 risk factors 1 Troponin Normal limit 0 Total 5 JUSTINO YEAGER PAC Jun 29, 2024 19:39
[2024-06-29 20:22] VITALS: BP 117/62; RESP 18; O2SAT 99
[2024-06-29] MEDS: AZITHROMYCIN 250 MG TAB PO ONE (20:27)
[2024-06-29] MEDS: DexAMETHasone SOD PHOS 10MG/1ML VIAL INJ IM ONE (20:33)
[2024-06-29 20:40] VITALS: PULSE 86
[2024-06-29] MEDS ORDERED: AZIT500T66 PO (20:52)
[2024-06-29] MEDS ORDERED: ALBU108A5 IN (20:52)
== END 2024-06-29 21:21 | disposition home or self-care (01) ==
LOC: EDBD 17:06 → ER 17:16
DX: J20.9 Acute bronchitis, unspecified (principal); I10 Essential (primary) hypertension; M19.90 Unspecified osteoarthritis, unspecified site
CPT/HCPCS: 36415; 71045; 80048; 84484; 85025; 85379; 94640; 96372; 99285; J1100

== ENCOUNTER 2024-07-26 22:04 | Emergency (ER) | payer OTHER, MEDICAID ==
[~2024-07-26] VITALS: Ht 177.8 cm; Wt 100.0 kg
[~2024-07-26 22:04] MED LIST changes: +ALBU108A5 IN; +AZIT500T66 PO
--- NOTE | 2024-07-26 22:23 | ED.PDOC ---
HPI Comments 74-year-old male who came to ER via EMS for chest pains. Patient is homeless, does have history of hypertension but has poor compliance to his medications. Was said to be having intermittent episodes of chest pains for the past week, that progressively worsened in the past few hours. Complaining of left-sided chest pains, cramping, radiating to left arm, associated with headaches, cough and shortness of breath. 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 Allergies: Coded Allergies: Ibuprofen (Verified Allergy, Unknown, 09/30/23) Penicillins (Verified Allergy, Unknown, 01/26/23) Home Meds Active Scripts Albuterol Sulfate (Albuterol Sulfate Hfa) 108 Mcg/Act Aer, 108 MCG IN Q4HP PRN, #1 AER Prov:JUSTINO YEAGER PAC 06/29/24 Azithromycin (Azithromycin) 500 Mg Tab, 1 TAB PO DAILY for 5 Days, #5 TAB Prov:JUSTINO YEAGER PAC 06/29/24 Hydrocodone-Acetaminophen (Hydrocodone Bitartrate/AC 5-325 mg) 1 Tab Tab, 1 TAB PO BID, #10 TAB Prov:MIHAI SALAZAR 11/24/23 Hydrocodone-Acetaminophen (Hydrocodone Bitartrate/AC 5-325 mg) 1 Tab Tab, 1 TAB PO BID, #14 TAB Prov:MIHAI SALAZAR 10/29/23 Hydrocodone-Acetaminophen (Hydrocodone Bitartrate/AC 5-325 mg) 1 Tab Tab, 1 TAB PO Q8HP PRN, #25 TAB Prov:JUSTINO YEAGER PAC 09/30/23 Ibuprofen (Ibuprofen) 600 Mg Tab, 1 TAB PO TID, #90 TAB 1 Refill Prov:JUSTINO YEAGER PAC 09/30/23 Tamsulosin Hcl (Flomax) 0.4 Mg Cap, 1 CAP PO DAILY for 30 Days, #30 CAP 1 Refill Prov:JUSTINO YEAGER PAC 09/30/23 Benzonatate (Benzonatate) 200 Mg Cap, 1 CAP PO TID, #30 CAP Prov:MIHAI SALAZAR 08/20/23 Acetaminophen (Tylenol Extra Strength) 500 Mg Tab, 500 MG PO QID, #30 TAB Prov:MIHAI SALAZAR 08/20/23 Oseltamivir Phosphate (Tamiflu) 75 Mg Cap, 75 MG PO BID, #10 CAP Prov:MIHAI SALAZAR 08/20/23 Hydrocodone-Acetaminophen (Hydrocodone Bitartrate/AC 5-325 mg) 1 Tab Tab, 1 TAB PO Q6HP PRN, #20 TAB Prov:JUSTINO YEAGER PAC 07/14/23 Ibuprofen (Ibuprofen) 800 Mg Tab, 1 TAB PO TID, #30 TAB Prov:MIHAI SALAZAR 05/26/23 Ibuprofen (Ibuprofen) 600 Mg Tab, 1 TAB PO Q6HP PRN, #30 TAB Prov:JUSTINO YEAGER PAC 05/07/23 Tramadol Hcl (Tramadol Hcl) 50 Mg Tab, 50 MG PO Q8HP PRN, #10 TAB Prov:JUSTINO YEAGER PAC 04/20/23 Docusate Sodium (Colace) 100 Mg Cap, 1 CAP PO BID for 5 Days, #10 CAP Prov:IVONNE JEFFERY MD 04/14/23 Hydrocodone-Acetaminophen (Hydrocodone Bitartrate/AC 5-325 mg) 1 Tab Tab, 1 TAB PO Q8HP PRN for 7 Days, #21 TAB Prov:ANNMARIE SCRUGGS MD 04/07/23 Acetaminophen W/ Codeine (Tylenol #4 W/Codeine) 1 Tab Tb, 1 TAB PO Q8HP PRN, #15 TAB Prov:JUSTINO YEAGER PAC 03/27/23 Acetaminophen (Tylenol Extra Strength) 500 Mg Tab, 500 MG PO BIDP PRN for 10 Days, #20 TAB 0 Refills Prov:ANASTACIA OWENS RESTAURANT ASSISTANT MANAGER 02/21/23 Hydrocodone-Acetaminophen (Hydrocodone Bitartrate/AC 10-325 mg) 1 Tab Tab, 1 TAB PO Q4HP PRN, #15 TAB 0 Refills Prov:ELIANA GUDINO PA 01/15/23 Benzonatate (Tessalon Perles) 100 Mg Cap, 1 CAP PO TID PRN, #21 CAP Prov:MARIPOSA NESBITT 12/08/22 Tamsulosin Hcl (Flomax) 0.4 Mg Cap, 1 CAP PO DAILY, #30 CAP 11 Refills Prov:ANNMARIE SCRUGGS MD 12/06/22 Information Source: Patient, Emergency Med Personnel Mode of Arrival: EMS Severity: Moderate Timing: Hours Duration: Since onset Prehospital treatment: None Location: Chest (L) Radiation: Arm (L) Quality: Other (Cramping) Onset: With Light Exertion Cardiac Risk Factors: HTN History of: Similar pain in past Modifying Factors: Nothing Associated Signs and Symptoms: SOB Past Medical History PAST MEDICAL HISTORY: Arthritis, HTN Surgical History: Denies all surgeries Family History Family History: Reviewed,noncontributory to illness, Unknown Social History Smoker: Non-Smoker Alcohol: Denies ETOH Use Drugs: Denies Drug Use Lives In: Homeless Constitutional: reports: weakness; denies: chills, diaphoresis, fatigue, fever, malaise, sweats, others EENTM: denies: blurred vision, double vision, ear bleeding, ear discharge, ear drainage, ear pain, ear ringing, eye pain, eye redness, hearing loss, mouth pain, mouth swelling, nasal discharge, nose bleeding, nose congestion, nose pain, photophobia, tearing, throat pain, throat swelling, voice changes, others Respiratory: reports: SOB at rest, shortness of breath; denies: cough, hemoptysis, orthopnea, SOB with excertion, stridor, wheezing, others Cardiovascular: reports: chest pain, dizzy spells; denies: diaphoresis, Dyspnea on exertion, edema, irregular heart beat, left arm pain, lightheadedness, palpitations, PND, syncope, others Gastrointestinal: denies: abdomen distended, abdominal pain, blood streaked bowels, constipated, diarrhea, dysphagia, difficulty swallowing, hematemesis, melena, nausea, poor appetite, poor fluid intake, rectal bleeding, rectal pain, vomiting, others Genitourinary: denies: burning, dysuria, flank pain, frequency, hematuria, incontinence, penile discharge, penile sore, pain, testicle pain, testicle swelling, urgency, others Neurological: reports: headache; denies: dizziness, fainting, left sided numbness, left sided weakness, numbness, paresthesia, pre-existing deficit, right sided numbness, right sided weakness, seizure, speech problems, tingling, tremors, weakness, others Musculoskeletal: denies: back pain, gout, joint pain, joint swelling, muscle pa in, muscle stiffness, neck pain, others Integumetry: denies: bruises, change in color, change in hair/nails, dryness, laceration, lesions, lumps, rash, wounds, others Allergic/Immunocompromised: denies: Difficulty Healing, Frequent Infections, Hives, Itching, others Hematologic/Lymphatic: denies: anemia, blood clots, easy bleeding, easy bruising, swollen glands, others Endocrine: denies: excessive hunger, excessive sweating, excessive thirst, excessive urination, flushing, intolerance to cold, intolerance to heat, unexplained weight gain, unexplained weight loss, others Psychiatric: denies: anxiety, bipolar disorder, depression, hopeless, panic disorder, schizophrenia, sleepless, suicidal, others Physical Exam General Appearance: No Apparent Distress, Normal HEENT: Normal ENT Inspection, Pharynx Normal, TMs Normal Neck: Full Range of Motion, Non-Tender, Normal, Normal Inspection Respiratory: Chest Non-Tender, Lungs Clear, No Accessory Muscle Use, No Respiratory Distress, Normal Breath Sounds Cardiovascular: No Edema, No JVD, No Murmur, No Gallop, Normal Peripheral Pulses, Regular Rate/Rhythm Breast Exam: Deferred Gastrointestinal: No Organomegaly, Non Tender, No Pulsatile Mass, Normal Bowel Sounds, Soft Genitalia: Deferred Pelvic: Deferred Rectal: Deferred Extremities: No calf tenderness, Normal capillary refill, Normal inspection, Normal range of motion, Non-tender, No pedal edema Musculoskeletal : Apperance: Normal Neurologic: Alert, play therapist II-XII nml as Tested, No Motor Deficits, Normal Affect, Normal Mood, No Sensory Deficits Cerebellar Function: Normal Reflexes: Normal Skin: Dry, Normal Color, Warm Lymphatic: No Adenopathy Was a procedure done? Was a procedure done?: No CP Differential Dx Differential Diagnosis: Angina, Anxiety / Panic Attack Differential Diagnosis: CHF, HTN Essential, HTN Accelerated Differential Diagnosis: Angina, Chest Wall Pain, Costochondritis, Esophageal reflux/spasm, Gastritis, Myocardial Infarction X-Ray, Labs, Meds, VS Vital Signs Date Time Temp Pulse Resp B/P (MAP) Pulse Ox O2 Delivery O2 Flow Rate FiO2 07/27/24 00:54 97.6 72 20 141/99 (113) 99 97.6 07/27/24 00:54 72 20 99 Room Air 07/26/24 23:05 68 07/26/24 22:05 71 07/26/24 22:04 97.8 73 18 158/93 (114) 98 Lab Test 07/26/24 23:21 07/26/24 22:35 Range/Units Troponin I High Sensitivity 11 12 </=54 ng/L White Blood Count 6.3 4.4-10.8 10^3/uL Red Blood Count 4.32 L 4.5-5.90 10^6/uL Hemoglobin 13.6 13.5-17.5 g/dL Hematocrit 41.1 41.0-53.0 % Mean Corpuscular Volume 95.2 80.0-100.0 fL Mean Corpuscular Hemoglobin 31.4 28.0-32.0 pg Mean Corpuscular Hemoglobin Concent 33.0 32.0-36.0 g/dL Red Cell Distribution Width 14.2 11.8-14.3 % Platelet Count 271 140-450 10^3/uL Mean Platelet Volume 7.5 6.9-10.8 fL Neutrophils (%) (Auto) 62.8 37.0-80.0 % Lymphocytes (%) (Auto) 28.5 10.0-50.0 % Monocytes (%) (Auto) 5.9 0.0-12.0 % Eosinophils (%) (Auto) 2.2 0.0-7.0 % Basophils (%) (Auto) 0.6 0.0-2.0 % Neutrophils # (Auto) 4.0 1.6-8.6 10 ^3/uL Lymphocytes # (Auto) 1.8 0.4-5.4 10 ^3/uL Monocytes # (Auto) 0.4 0-1.3 10 ^3/uL Eosinophils # (Auto) 0.1 0-0.8 10 ^3/uL Basophils # (Auto) 0 0-0.2 10 ^3/uL Nucleated Red Blood Cells 0.0 % Prothrombin Time 11.2 9.3-11.8 sec Prothrombin Time INR 1.06 0.9-1.15 Activated Partial Thromboplast Time 28.0 24.5-34.5 SEC Sodium Level 138 136-145 mmol/L Potassium Level 3.7 3.5-5.1 mmol/L Chloride Level 104 98-107 mmol/L Carbon Dioxide Level 31 20-31 mmol/L Anion Gap 3 L 5-15 Blood Urea Nitrogen 13 9-23 mg/dL Creatinine 1.01 0.700-1.30 mg/dL Glomerular Filtration Rate Calc 78 >90 mL/min BUN/Creatinine Ratio 12.9 10.0-20.0 Serum Glucose 108 H 74-106 mg/dL Calcium Level 9.7 8.7-10.4 mg/dL Total Bilirubin 0.4 0.2-1.0 mg/dL Aspartate Amino Transferase (AST) 15 13-40 U/L Alanine Aminotransferase (ALT) 14 7-40 U/L Alkaline Phosphatase 92 46-116 U/L B-Type Natriuretic Peptide 21.72 0-100 pg/mL Total Protein 7.3 5.7-8.2 g/dL Albumin 4.2 3.2-4.8 g/dL Time of 1ST Reevaluation: 22:19 Reevaluation 1ST: Unchanged Time of 2ND Reevaluation: 23:30 Reevaluation 2ND: Improved Patient Education/Counseling: Diagnosis, Treatment Family Education/Counseling: No Family Present Departure 1 Departure Time of Disposition: 23:00 Impression: Primary Impression: Atypical chest pain Disposition: 01 HOME / SELF CARE / HOMELESS Condition: Stable Discharged With: Self Critical Care Note Critical Care Time?: No Stability Stability form required: No Heart Score Heart Score: Heart Score Response (Comments) Value History Slightly Suspicious 0 EKG Normal 0 Age >65 2 Risk Factors 1 or 2 risk factors 1 Troponin Normal limit 0 Total 3 I personally scribed for HARRISON ZARCO MD ([email or web address]) on 07/26/24 at 22:23. Electronically submitted by William Olivares ([email or web address]). HARRISON ZARCO MD Jul 26, 2024 22:23
[2024-07-26 23:05] LABS: Basophils # (auto) 0 10 ^3/uL (0-0.2); Basophils % (auto) 0.6 % (0.0-2.0); Eosinophils # (auto) 0.1 10 ^3/uL (0-0.8); Eosinophils % (auto) 2.2 % (0.0-7.0); Hematocrit 41.1 % (41.0-53.0); Hemoglobin 13.6 g/dL (13.5-17.5); Lymphocytes # (auto) 1.8 10 ^3/uL (0.4-5.4); Lymphocytes % (auto) 28.5 % (10.0-50.0); Mean Corpuscular Hemoglobin 31.4 pg (28.0-32.0); Mean Corpuscular Volume 95.2 fL (80.0-100.0); Monocytes # (auto) 0.4 10 ^3/uL (0-1.3); Monocytes % (auto) 5.9 % (0.0-12.0); Neutrophils % (auto) 62.8 % (37.0-80.0); Platelet Count (auto) 271 10^3/uL (140-450); Red Blood Cells 4.32 10^6/uL (4.5-5.90); Red Cell Distribution Width 14.2 % (11.8-14.3); White Blood Cell 6.3 10^3/uL (4.4-10.8)
[2024-07-26 23:19] LABS: INR 1.06 (0.9-1.15); Prothrombin Time 11.2 sec (9.3-11.8)
[2024-07-26 23:23] LABS: Alanine Aminotransferase 14 U/L (7-40); Albumin 4.2 g/dL (3.2-4.8); Alkaline Phosphatase 92 U/L (46-116); Anion Gap 3 (5-15); Aspartate Aminotransferase 15 U/L (13-40); BUN/Creatinine Ratio 12.9 (10.0-20.0); Bilirubin, Total 0.4 mg/dL (0.2-1.0); Blood Urea Nitrogen 13 mg/dL (9-23); Calcium 9.7 mg/dL (8.7-10.4); Carbon Dioxide 31 mmol/L (20-31); Chloride 104 mmol/L (98-107); Potassium 3.7 mmol/L (3.5-5.1); Sodium 138 mmol/L (136-145); Total Protein 7.3 g/dL (5.7-8.2)
[2024-07-26 23:25] LABS: Glucose 108 mg/dL (74-106)
--- NOTE | 2024-07-26 23:32 | ECG ---
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
[2024-07-27 00:54] VITALS: BP 141/99; PULSE 72; RESP 20; TEMP 97.6; O2SAT 99
== END 2024-07-27 00:57 | disposition home or self-care (01) ==
LOC: ER 22:04 → EDBD 22:04 → ER 07-27 00:57
DX: R07.89 Other chest pain (principal); R51.9 Headache, unspecified; M19.90 Unspecified osteoarthritis, unspecified site; I10 Essential (primary) hypertension; Z59.00 Homelessness unspecified; Z79.1 Long term (current) use of non-steroidal anti-inflammatories (NSAID); Z88.0 Allergy status to penicillin; Z88.6 Allergy status to analgesic agent
CPT/HCPCS: 36415; 80053; 83880; 84484; 85025; 85610; 85730; 93005

== ENCOUNTER 2024-08-26 12:38 | Emergency (ER) | payer OTHER, MEDICAID ==
[~2024-08-26] VITALS: Ht 180.3 cm; Wt 93.3 kg
[2024-08-26 12:41] VITALS: TEMP 98.9
[2024-08-26 12:47] VITALS: BP 151/77; PULSE 85; RESP 16; O2SAT 98
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
[2024-08-26] MEDS ORDERED: TAMS1CAP25 PO (14:17)
== END 2024-08-26 14:20 | disposition home or self-care (01) ==
LOC: ER 12:38
DX: N40.0 Benign prostatic hyperplasia without lower urinary tract symptoms (principal); I10 Essential (primary) hypertension; M19.90 Unspecified osteoarthritis, unspecified site; Z88.0 Allergy status to penicillin; Z79.1 Long term (current) use of non-steroidal anti-inflammatories (NSAID); Z76.0 Encounter for issue of repeat prescription; Z88.6 Allergy status to analgesic agent

== ENCOUNTER 2024-09-18 17:43 | Emergency (ER) | payer OTHER, MEDICAID ==
[~2024-09-18] VITALS: Ht 180.3 cm; Wt 94.9 kg
[~2024-09-18 17:43] MED LIST changes: +TAMS1CAP25 PO
[2024-09-18] MEDS ORDERED: HYDR-4902 PO (18:07)
--- NOTE | 2024-09-18 18:12 | ED.PDOC ---
History of Present Illness HPI Comments 74 y/o M, with PMHX of arthritis presents to the ED for CC body pain. Patient states, that he has been experiencing complete body pain specifically his joints. Patient relays, he has ran out of his ibuprofen prescription which he takes for his RA. Patient comments on not having a PCP at this time. Patient de nies fever, chills, shortness of breath, weakness, or fatigue. No other symptoms or modifying factors at this time. Chief Complaint: Body Pain Time Seen by MD: 18:00 Primary Care Provider: NONE Reviewed Notes: Nurses Notes, Medications, Allergies Allergies: Coded Allergies: Ibuprofen (Verified Allergy, Unknown, 09/30/23) Penicillins (Verified Allergy, Unknown, 01/26/23) Home Meds Active Scripts Hydrocodone-Acetaminophen (Hydrocodone Bitartrate/AC 5-325 mg) 1 Tab Tab, 1 TAB PO Q6HP PRN, #20 TAB Prov:ANNMARIE SCRUGGS MD 09/18/24 Tamsulosin HCl (Tamsulosin Hydrochloride) 0.4 Mg Cap, 0.4 MG PO DAILY@BREAKFAST for 30 Days, #30 CAP Prov:ZAIN HILTON MD 08/26/24 Albuterol Sulfate (Albuterol Sulfate Hfa) 108 Mcg/Act Aer, 108 MCG IN Q4HP PRN, #1 AER Prov:JUSTINO YEAGER 06/29/24 Azithromycin (Azithromycin) 500 Mg Tab, 1 TAB PO DAILY for 5 Days, #5 TAB Prov:JUSTINO YEAGER 06/29/24 Hydrocodone-Acetaminophen (Hydrocodone Bitartrate/AC 5-325 mg) 1 Tab Tab, 1 TAB PO BID, #10 TAB Prov:MIHAI SALAZAR 11/24/23 Hydrocodone-Acetaminophen (Hydrocodone Bitartrate/AC 5-325 mg) 1 Tab Tab, 1 TAB PO BID, #14 TAB Prov:MIHAI SALAZAR 10/29/23 Hydrocodone-Acetaminophen (Hydrocodone Bitartrate/AC 5-325 mg) 1 Tab Tab, 1 TAB PO Q8HP PRN, #25 TAB Prov:JUSTINO YEAGER 09/30/23 Ibuprofen (Ibuprofen) 600 Mg Tab, 1 TAB PO TID, #90 TAB 1 Refill Prov:JUSTINO YEAGER 09/30/23 Tamsulosin Hcl (Flomax) 0.4 Mg Cap, 1 CAP PO DAILY for 30 Days, #30 CAP 1 Refill Prov:JUSTINO YEAGER PAC 09/30/23 Benzonatate (Benzonatate) 200 Mg Cap, 1 CAP PO TID, #30 CAP Prov:MIHAI SALAZAR 08/20/23 Acetaminophen (Tylenol Extra Strength) 500 Mg Tab, 500 MG PO QID, #30 TAB Prov:MIHAI SALAZAR 08/20/23 Oseltamivir Phosphate (Tamiflu) 75 Mg Cap, 75 MG PO BID, #10 CAP Prov:MIHAI SALAZAR 08/20/23 Ibuprofen (Ibuprofen) 800 Mg Tab, 1 TAB PO TID, #30 TAB Prov:MIHAI SALAZAR 05/26/23 Ibuprofen (Ibuprofen) 600 Mg Tab, 1 TAB PO Q6HP PRN, #30 TAB Prov:JUSTINO YEAGER PAC 05/07/23 Tramadol Hcl (Tramadol Hcl) 50 Mg Tab, 50 MG PO Q8HP PRN, #10 TAB Prov:JUSTINO YEAGER PAC 04/20/23 Docusate Sodium (Colace) 100 Mg Cap, 1 CAP PO BID for 5 Days, #10 CAP Prov:IVONNE JEFFERY MD 04/14/23 Hydrocodone-Acetaminophen (Hydrocodone Bitartrate/AC 5-325 mg) 1 Tab Tab, 1 TAB PO Q8HP PRN for 7 Days, #21 TAB Prov:ANNMARIE SCRUGGS MD 04/07/23 Acetaminophen W/ Codeine (Tylenol #4 W/Codeine) 1 Tab Tb, 1 TAB PO Q8HP PRN, #15 TAB Prov:JUSTINO YEAEGR PAC 03/27/23 Acetaminophen (Tylenol Extra Strength) 500 Mg Tab, 500 MG PO BIDP PRN for 10 Days, #20 TAB 0 Refills Prov:ANASTACIA OWENS NP 02/21/23 Hydrocodone-Acetaminophen (Hydrocodone Bitartrate/AC 10-325 mg) 1 Tab Tab, 1 TAB PO Q4HP PRN, #15 TAB 0 Refills Prov:ELIANA GUDINO PA 01/15/23 Benzonatate (Tessalon Perles) 100 Mg Cap, 1 CAP PO TID PRN, #21 CAP Prov:MARIPOSA NESBITT 12/08/22 Tamsulosin Hcl (Flomax) 0.4 Mg Cap, 1 CAP PO DAILY, #30 CAP 11 Refills Prov:ANNMARIE SCRUGGS MD 12/06/22 Information Source: Patient Mode of Arrival: Ambulatory Severity: Mild Timing: Days Duration: Since onset Prehospital treatment: None Past Medical History PAST MEDICAL HISTORY: Arthritis, HTN Surgical History: Denies all surgeries Family History Family History: Reviewed,noncontributory to illness, Unknown Social History Smoker: Non-Smoker Alcohol: Denies ETOH Use Drugs: Denies Drug Use Lives In: Homeless Constitutional: denies: chills, diaphoresis, fatigue, fever, malaise, sweats, weakness, others EENTM: denies: blurred vision, double vision, ear bleeding, ear discharge, ear drainage, ear pain, ear ringing, eye pain, eye redness, hearing loss, mouth pain, mouth swelling, nasal discharge, nose bleeding, nose congestion, nose pain, photophobia, tearing, throat pain, throat swelling, voice changes, others Respiratory: denies: cough, hemoptysis, orthopnea, SOB at rest, shortness of breath, SOB with excertion, stridor, wheezing, others Cardiovascular: denies: chest pain, dizzy spells, diaphoresis, Dyspnea on exertion, edema, irregular heart beat, left arm pain, lightheadedness, palpitations, PND, syncope, others Gastrointestinal: denies: abdomen distended, abdominal pain, blood streaked bowels, constipated, diarrhea, dysphagia, difficulty swallowing, hematemesis, melena, nausea, poor appetite, poor fluid intake, rectal bleeding, rectal pain, vomiting, others Genitourinary: denies: burning, dysuria, flank pain, frequency, hematuria, incontinence, penile discharge, penile sore, pain, testicle pain, testicle swelling, urgency, others Neurological: denies: dizziness, fainting, headache, left sided numbness, left sided weakness, numbness, paresthesia, pre-existing deficit, right sided numbness, right sided weakness, seizure, speech problems, tingling, tremors, weakness, others Musculoskeletal: reports: joint pain, others (BODY PAIN); denies: back pain, gout, joint swelling, muscle pain, muscle stiffness, neck pain Integumetry: denies: bruises, change in color, change in hair/nails, dryness, laceration, lesions, lumps, rash, wounds, others Allergic/Immunocompromised: denies: Difficulty Healing, Frequent Infections, Hives, Itching, others Hematologic/Lymphatic: denies: anemia, blood clots, easy bleeding, easy bruising, swollen glands, others Endocrine: denies: excessive hunger, excessive sweating, excessive thirst, excessive urination, flushing, intolerance to cold, intolerance to heat, unexplained weight gain, unexplained weight loss, others Psychiatric: denies: anxiety, bipolar disorder, depression, hopeless, panic disorder, schizophrenia, sleepless, suicidal, others All Other Systems: Reviewed and Negative Physical Exam General Appearance: No Apparent Distress HEENT: Normal ENT Inspection, Pharynx Normal, TMs Normal Neck: Full Range of Motion, Non-Tender, Normal, Normal Inspection Respiratory: Chest Non-Tender, Lungs Clear, No Accessory Muscle Use, No Respiratory Distress, Normal Breath Sounds Cardiovascular: No Edema, No JVD, No Murmur, No Gallop, Normal Peripheral Pulses, Regular Rate/Rhythm Breast Exam: Deferred Gastrointestinal: No Organomegaly, Non Tender, No Pulsatile Mass, Normal Bowel Sounds, Soft Genitalia: Deferred Pelvic: Deferred Rectal: Deferred Extremities: No calf tenderness, Normal capillary refill, Normal inspection, Normal range of motion, Non-tender, No pedal edema Musculoskeletal : Apperance: Normal Neurologic: Alert, cyanide case hardener II-XII nml as Tested, No Motor Deficits, Normal Affect, Normal Mood, No Sensory Deficits Cerebellar Function: Normal Reflexes: Normal Skin: Dry, Normal Color, Warm Lymphatic: No Adenopathy Was a procedure done? Was a procedure done?: No Differential Dx Considerations may include: Rheumatoid arthritis X-Ray, Labs, Meds, VS Vital Signs Date Time Temp Pulse Resp B/P (MAP) Pulse Ox O2 Delivery O2 Flow Rate FiO2 09/18/24 17:47 97.8 95 20 168/99 (122) 97 Time of 1ST Reevaluation: 18:30 Reevaluation 1ST: Unchanged Patient Education/Counseling: Diagnosis, Treatment, Prognosis, Need For Follow Up Family Education/Counseling: No Family Present Additional Information - I reviewed the following notes from patient's past medical encounters: 08/26/24 DX: BENIGN PROSTATIC HYPERPLASIA - The following tests were ordered, and results were reviewed by me: (Labs, X- Ray, EKG): CT abdomen and pelvis - Additional information was gathered from interviewing the following independent Historian: (Family, Other Providers, EMT) - I reviewed and agreed with the following test results read by other provider: (X-ray, CT, US) - I discussed treatments and results with medical personnel and: (consultants, family): none Departure 1 Departure Time of Disposition: 18:27 Impression: Primary Impression: Chronic pain syndrome Disposition: HOME / SELF CARE / HOMELESS Condition: Fair e-Prescriptions Hydrocodone-Acetaminophen (Hydrocodone Bitartrate/AC 5-325 mg) 1 Tab Tab 1 TAB PO Q6HP PRN, #20 TAB Prov: ANNMARIE SCRUGGS MD 09/18/24 Discharged With: Self Critical Care Note Critical Care Time?: No Stability Stability form required: No Heart Score Heart Score: Heart Score Response (Comments) Value History N/A 0 EKG N/A 0 Age N/A 0 Risk Factors N/A 0 Troponin N/A 0 Total 0 I personally scribed for ANNMARIE SCRUGGS MD ([email or web address]) on 09/18/24 at 18:12. Electronically submitted by Brittni Starkey ([email or web address]). I personally scribed for ANNMARIE SCRUGGS MD ([email or web address]) on 09/18/24 at 18:18. Electronically submitted by Brittni Starkey ([email or web address]). I personally scribed for ANNMARIE SCRUGGS MD ([email or web address]) on 09/18/24 at 18:22. El ectronically submitted by Brittni Starkey ([email or web address]). ANNMARIE SCRUGGS MD Sep 18, 2024 18:12
[2024-09-18] MEDS: HYDROcodone-ACET 5/325MG TAB PO ONE (18:40)
[2024-09-18 19:02] VITALS: BP 126/79; PULSE 74; RESP 15; TEMP 98; O2SAT 99
== END 2024-09-18 19:03 | disposition home or self-care (01) ==
LOC: ER 17:43
DX: G89.29 Other chronic pain (principal); M79.10 Myalgia, unspecified site; I10 Essential (primary) hypertension; Z88.6 Allergy status to analgesic agent; Z88.0 Allergy status to penicillin; Z79.899 Other long term (current) drug therapy; Z59.00 Homelessness unspecified

== ENCOUNTER 2024-09-29 09:51 | Emergency (ER) | payer OTHER, MEDICAID ==
[~2024-09-29] VITALS: Ht 180.3 cm; Wt 91.7 kg
--- NOTE | 2024-09-29 10:11 | ECG ---
[facility] Test Date: 2024-09-29 Test Time: 10:07:36 Pat Name: ADILENE BAUM Department: ER Room: Gender: M Coo: JORDON : 1950 Requested By: LYNDSEY HOSKINS Order Number: [id number] Reading MD: Gio Ratliff Measurements Intervals [place] Rate: 81 P: 3 VA: 187 QRS: -48 QRSD: 100 T: 60 QT: 384 QTc: 446 Interpretive Statements Sinus rhythm Incomplete RBBB and LAFB RSR' in V1 or V2, right VCD or RVH Minimal ST elevation, anterior leads Electronically Signed On 10-02-2024 21:56:52 PST by Gio Ratliff Please click the below link to view image of tracing.
[2024-09-29 13:50] LABS: Urine Bacteria None Seen /hpf (None Seen)
--- NOTE | 2024-09-29 14:04 | ED.PDOC ---
History of Present Illness HPI Comments 74 year old male presents to the ED with a chief complaint of medication refill onset today (09/29/2024). Patient states he ran out of his Hydrocodone for chronic shoulder pain and Tamsulosin medication. Patient states he is currently experiencing bilateral shoulder pain. PMHx arthritis, BPH, prostate cancer. Denies injury, fall, headache, chest pain, nausea, vomiting, diarrhea, blurry vision. No other symptoms or modifying factors present at this time. Chief Complaint: General Weakness Time Seen by MD: 13:47 Primary Care Provider: NONE Reviewed Notes: Medications, Allergies Allergies: Coded Allergies: Ibuprofen (Verified Allergy, Unknown, 09/30/23) Penicillins (Verified Allergy, Unknown, 01/26/23) Home Meds Active Scripts Tamsulosin Hcl (Tamsulosin Hcl) 0.4 Mg Cap, 1 CAP PO DAILY, #30 CAP 5 Refills Prov:LYNDSEY HOSKINS MD 09/29/24 Hydrocodone-Acetaminophen (Hydrocodone/Acetaminophen 5-325 mg) 1 Tab Tab, 1 TAB PO BID for 7 Days, #14 TAB Prov:LYNDSEY HOSKINS MD 09/29/24 Hydrocodone-Acetaminophen (Hydrocodone Bitartrate/AC 5-325 mg) 1 Tab Tab, 1 TAB PO Q6HP PRN, #20 TAB Prov:ANNMARIE SCRUGGS MD 09/18/24 Tamsulosin HCl (Tamsulosin Hydrochloride) 0.4 Mg Cap, 0.4 MG PO DAILY@BREAKFAST for 30 Days, #30 CAP Prov:ZAIN HILTON MD 08/26/24 Albuterol Sulfate (Albuterol Sulfate Hfa) 108 Mcg/Act Aer, 108 MCG IN Q4HP PRN, #1 AER Prov:JUSTINO YEAGER PAC 06/29/24 Azithromycin (Azithromycin) 500 Mg Tab, 1 TAB PO DAILY for 5 Days, #5 TAB Prov:JUSTINO YEAGER PAC 06/29/24 Hydrocodone-Acetaminophen (Hydrocodone Bitartrate/AC 5-325 mg) 1 Tab Tab, 1 TAB PO BID, #10 TAB Prov:MIHAI SALAZAR 11/24/23 Hydrocodone-Acetaminophen (Hydrocodone Bitartrate/AC 5-325 mg) 1 Tab Tab, 1 TAB PO BID, #14 TAB Prov:MIHAI SALAZAR 10/29/23 Hydrocodone-Acetaminophen (Hydrocodone Bitartrate/AC 5-325 mg) 1 Tab Tab, 1 TAB PO Q8HP PRN, #25 TAB Prov:JUSTINO YEAGER PAC 09/30/23 Ibuprofen (Ibuprofen) 600 Mg Tab, 1 TAB PO TID, #90 TAB 1 Refill Prov:JUSTINO YEAGER PAC 09/30/23 Tamsulosin Hcl (Flomax) 0.4 Mg Cap, 1 CAP PO DAILY for 30 Days, #30 CAP 1 Refill Prov:JUSTINO YEAGER PAC 09/30/23 Benzonatate (Benzonatate) 200 Mg Cap, 1 CAP PO TID, #30 CAP Prov:MIHAI SALAZAR 08/20/23 Acetaminophen (Tylenol Extra Strength) 500 Mg Tab, 500 MG PO QID, #30 TAB Prov:MIHAI SALAZAR 08/20/23 Oseltamivir Phosphate (Tamiflu) 75 Mg Cap, 75 MG PO BID, #10 CAP Prov:MIHAI SALAZAR 08/20/23 Ibuprofen (Ibuprofen) 800 Mg Tab, 1 TAB PO TID, #30 TAB Prov:MIHAI SALAZAR 05/26/23 Ibuprofen (Ibuprofen) 600 Mg Tab, 1 TAB PO Q6HP PRN, #30 TAB Prov:JUSTINO YEAGER PAC 05/07/23 Tramadol Hcl (Tramadol Hcl) 50 Mg Tab, 50 MG PO Q8HP PRN, #10 TAB Prov:JUSTINO YEAGER [facility] 04/20/23 Docusate Sodium (Colace) 100 Mg Cap, 1 CAP PO BID for 5 Days, #10 CAP Prov:IVONNE JEFFERY MD 04/14/23 Hydrocodone-Acetaminophen (Hydrocodone Bitartrate/AC 5-325 mg) 1 Tab Tab, 1 TAB PO Q8HP PRN for 7 Days, #21 TAB Prov:ANNMARIE SCRUGGS MD 04/07/23 Acetaminophen W/ Codeine (Tylenol #4 W/Codeine) 1 Tab Tb, 1 TAB PO Q8HP PRN, #15 TAB Prov:JUSTINO YEAGER PAC 03/27/23 Acetaminophen (Tylenol Extra Strength) 500 Mg Tab, 500 MG PO BIDP PRN for 10 Days, #20 TAB 0 Refills Prov:ANASTACIA OWENS NP 02/21/23 Hydrocodone-Acetaminophen (Hydrocodone Bitartrate/AC 10-325 mg) 1 Tab Tab, 1 TAB PO Q4HP PRN, #15 TAB 0 Refills Prov:ELIANA GUDINO 01/15/23 Benzonatate (Tessalon Perles) 100 Mg Cap, 1 CAP PO TID PRN, #21 CAP Prov:MARIPOSA NESBITT 12/08/22 Tamsulosin Hcl (Flomax) 0.4 Mg Cap, 1 CAP PO DAILY, #30 CAP 11 Refills Prov:ANNMARIE SCRUGGS MD 12/06/22 Information Source: Patient Mode of Arrival: Ambulatory Severity: Moderate Timing: Hours Duration: Since onset Prehospital treatment: None Medication Refill: Ran out of Medication, For: Pain Past Medical History PAST MEDICAL HISTORY: Arthritis, Cancer (prostate), HTN Past Medical History (Other): BPH Surgical History: Denies all surgeries Family History Family History: Reviewed,noncontributory to illness, Unknown Social History Smoker: Non-Smoker Alcohol: Denies ETOH Use Drugs: Denies Drug Use Lives In: Homeless Constitutional: denies: chills, diaphoresis, fatigue, fever, malaise, sweats, weakness, others EENTM: denies: blurred vision, double vision, ear bleeding, ear discharge, ear drainage, ear pain, ear ringing, eye pain, eye redness, hearing loss, mouth pain, mouth swelling, nasal discharge, nose bleeding, nose congestion, nose pain, photophobia, tearing, throat pain, throat swelling, voice changes, others Respiratory: denies: cough, hemoptysis, orthopnea, SOB at rest, shortness of breath, SOB with excertion, stridor, wheezing, others Cardiovascular: denies: chest pain, dizzy spells, diaphoresis, Dyspnea on exertion, edema, irregular heart beat, left arm pain, lightheadedness, palpitations, PND, syncope, others Gastrointestinal: denies: abdomen distended, abdominal pain, blood streaked bowels, constipated, diarrhea, dysphagia, difficulty swallowing, hematemesis, melena, nausea, poor appetite, poor fluid intake, rectal bleeding, rectal pain, vomiting, others Genitourinary: denies: burning, dysuria, flank pain, frequency, hematuria, incontinence, penile discharge, penile sore, pain, testicle pain, testicle swelling, urgency, others Neurological: denies: dizziness, fainting, headache, left sided numbness, left sided weakness, numbness, paresthesia, pre-existing deficit, right sided numbness, right sided weakness, seizure, speech problems, tingling, tremors, weakness, others Musculoskeletal: reports: others (bilateral shoulder pain); denies: back pain, gout, joint pain, joint swelling, muscle pain, muscle stiffness, neck pain Integumetry: denies: bruises, change in color, change in hair/nails, dryness, laceration, lesions, lumps, rash, wounds, others Allergic/Immunocompromised: denies: Difficulty Healing, Frequent Infections, Hives, Itching, others Hematologic/Lymphatic: denies: anemia, blood clots, easy bleeding, easy bruising, swollen glands, others Endocrine: denies: excessive hunger, excessive sweating, excessive thirst, excessive urination, flushing, intolerance to cold, intolerance to heat, unexplained weight gain, unexplained weight loss, others Psychiatric: denies: anxiety, bipolar disorder, depression, hopeless, panic disorder, schizophrenia, sleepless, suicidal, others All Other Systems: Reviewed and Negative Physical Exam General Appearance: No Apparent Distress, Normal HEENT: Normal ENT Inspection, Pharynx Normal, TMs Normal Neck: Full Range of Motion, Non-Tender, Normal, Normal Inspection Respiratory: Chest Non-Tender, Lungs Clear, No Accessory Muscle Use, No Respiratory Distress, Normal Breath Sounds Cardiovascular: No Edema, No JVD, No Murmur, No Gallop, Normal Peripheral Pulses, Regular Rate/Rhythm Breast Exam: Deferred Gastrointestinal: No Organomegaly, Non Tender, No Pulsatile Mass, Normal Bowel Sounds, Soft Genitalia: Deferred Pelvic: Deferred Rectal: Deferred Extremities: No calf tenderness, Normal capillary refill, Normal inspection, Normal range of motion, Non-tender, No pedal edema Musculoskeletal : Apperance: Normal Neurologic: Alert, barge hand II-XII nml as Tested, No Motor Deficits, Normal Affect, Normal Mood, No Sensory Deficits Cerebellar Function: Normal Reflexes: Normal Skin: Dry, Normal Color, Warm Peripheral Pulses: 1+ carotid (R), 1+ carotid (L) Lymphatic: No Adenopathy Was a procedure done? Was a procedure done?: No Differential Dx Considerations may include: Patient for refill of medication X-Ray, Labs, Meds, VS Vital Signs Date Time Temp Pulse Resp B/P (MAP) Pulse Ox O2 Delivery O2 Flow Rate FiO2 09/29/24 10:07 81 09/29/24 10:04 98.1 74 18 137/89 (105) 100 Lab Test 09/29/24 10:02 09/29/24 10:00 Range/Units Urine Color Light-yellow Yellow Urine Clarity Clear Clear Urine pH 5.5 5.0-9.0 Urine Specific [place] 1.021 1.001-1.035 Urine Protein Negative Negative Urine Ketones Negative Negative Urine Blood Negative Negative /uL Urine Nitrite Negative Negative Urine Bilirubin Negative Negative Urine Urobilinogen Normal Negative mg/dL Urine Leukocyte Esterase Negative Negative /uL Urine RBC 2 0 - 3 /hpf Urine Microscopic WBC < 1 0-3 /HPF Urine Squamous Epithelial Cells None seen <5 /hpf Urine Bacteria None seen None Seen /hpf Urine Glucose Normal Normal mg/dL POC Glucose 97 70-106 mg/dl X-Ray, Labs, Meds, VS Comment Patient was refilled hydrocodone and tamsulosin for one week and will be following with his doctor Time of 1ST Reevaluation: 14:17 Reevaluation 1ST: Unchanged Patient Education/Counseling: Diagnosis, Treatment, Prognosis Family Education/Counseling: No Family Present Additional Information - The following tests were ordered, and results were reviewed by me: EKG, UA - I discussed treatments and results with medical personnel and: patient Departure 1 Departure Time of Disposition: 14:23 Impression: Primary Impression: Osteoarthritis (arthritis due to wear and tear of joints) Qualified Codes: M19.011 - Primary osteoarthritis, right shoulder; M19.012 - Primary osteoarthritis, left shoulder Additional Impression: Prostate cancer Disposition: 01 HOME / SELF CARE / HOMELESS Condition: Fair Additional Instructions: Local heat and follow up with your PCP e-Prescriptions Tamsulosin Hcl (Tamsulosin Hcl) 0.4 Mg Cap 1 CAP PO DAILY, #30 CAP 5 Refills Prov: LYNDSEY HOSKINS MD 09/29/24 Hydrocodone-Acetaminophen (Hydrocodone/Acetaminophen 5-325 mg) 1 Tab Tab 1 TAB PO BID for 7 Days, #14 TAB Prov: LYNDSEY HOSKINS MD 09/29/24 Discharged With: Self Critical Care Note Critical Care Time?: No Stability Stability form required: No Heart Score Heart Score: Heart Score Response (Comments) Value History N/A 0 EKG N/A 0 Age >65 2 Risk Factors 1 or 2 risk factors 1 Troponin N/A 0 Total 3 I personally scribed for LYNDSEY HOSKINS MD ([email or web address]) on 09/29/24 at 14:04. Electronically submitted by Rosalba Lyles ([email or web address]). I personally scribed for LYNDSEY HOSKINS MD ([email or web address]) on 09/29/24 at 14:06. Electronically submitted by Rosalba Lyles ([email or web address]). LYNDSEY HOSKINS MD Sep 29, 2024 14:04
[2024-09-29 14:09] LABS: Urine Blood Negative /uL (Negative); Urine Clarity Clear (Clear); Urine Color Light-Yellow (Yellow); Urine Protein, UAD Negative (Negative); Urine Specific Gravity 1.021 (1.001-1.035); Urine Squamous Epithelial Cell None Seen /hpf (<5); Urine Urobilinogen Normal (Negative); Urine WBC < 1 /HPF (0-3); Urine pH 5.5 (5.0-9.0)
[2024-09-29] MEDS ORDERED: HYDR1TAB97 PO (14:20)
[2024-09-29] MEDS ORDERED: TAMS0.4C39 PO (14:20)
[2024-09-29 15:00] VITALS: BP 156/64; PULSE 70; RESP 16; TEMP 97.7; O2SAT 96
== END 2024-09-29 15:10 | disposition home or self-care (01) ==
LOC: ER 09:51
DX: C61 Malignant neoplasm of prostate (principal); M19.90 Unspecified osteoarthritis, unspecified site; I10 Essential (primary) hypertension; Z79.899 Other long term (current) drug therapy; Z88.6 Allergy status to analgesic agent; Z88.0 Allergy status to penicillin
CPT/HCPCS: 81001; 82947; 82962; 93005

== ENCOUNTER 2024-10-13 21:03 | Emergency (ER) | payer OTHER, MEDICAID ==
[~2024-10-13] VITALS: Ht 180.3 cm; Wt 82.0 kg
[~2024-10-13 21:03] MED LIST changes: +HYDR1TAB97 PO; +TAMS0.4C39 PO
[2024-10-13 21:29] LABS: Basophils # (auto) 0 10 ^3/uL (0-0.2); Basophils % (auto) 0.7 % (0.0-2.0); Eosinophils # (auto) 0.1 10 ^3/uL (0-0.8); Eosinophils % (auto) 1.5 % (0.0-7.0); Hematocrit 41.1 % (41.0-53.0); Hemoglobin 13.5 g/dL (13.5-17.5); Lymphocytes # (auto) 1.6 10 ^3/uL (0.4-5.4); Mean Corpuscular Hemoglobin 31.3 pg (28.0-32.0); Mean Corpuscular Hgb Conc. 32.8 g/dL (32.0-36.0); Mean Corpuscular Volume 95.5 fL (80.0-100.0); Monocytes # (auto) 0.4 10 ^3/uL (0-1.3); Monocytes % (auto) 5.4 % (0.0-12.0); Neutrophils # (auto) 4.7 10 ^3/uL (1.6-8.6); Neutrophils % (auto) 69.4 % (37.0-80.0); Platelet Count (auto) 236 10^3/uL (140-450); Red Blood Cells 4.31 10^6/uL (4.5-5.90); Red Cell Distribution Width 14.1 % (11.8-14.3); White Blood Cell 6.8 10^3/uL (4.4-10.8)
--- NOTE | 2024-10-13 21:37 | ED.PDOC ---
HPI Comments 74-year-old male came to the emergency room via EMS for chest pain. Patient is homeless, has history of hypertension and prostate cancer. Has poor compliance to medications. Has not consulted regarding his cancer. States [place] the bus stop about an hour ago, when he developed sudden onset sharp subcentral chest pains radiating through his left lower ribcage, tender to touch, associated with shortness of breath. 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 Allergies: Coded Allergies: Ibuprofen (Verified Allergy, Unknown, 09/30/23) Penicillins (Verified Allergy, Unknown, 01/26/23) Home Meds Active Scripts Tamsulosin Hcl (Tamsulosin Hcl) 0.4 Mg Cap, 1 CAP PO DAILY, #30 CAP 5 Refills Prov:LYNDSEY HOSKINS MD 09/29/24 Hydrocodone-Acetaminophen (Hydrocodone/Acetaminophen 5-325 mg) 1 Tab Tab, 1 TAB PO BID for 7 Days, #14 TAB Prov:LYNDSEY HOSKINS MD 09/29/24 Hydrocodone-Acetaminophen (Hydrocodone Bitartrate/AC 5-325 mg) 1 Tab Tab, 1 TAB PO Q6HP PRN, #20 TAB Prov:ANNMARIE SCRUGGS MD 09/18/24 Tamsulosin HCl (Tamsulosin Hydrochloride) 0.4 Mg Cap, 0.4 MG PO DAILY@BREAKFAST for 30 Days, #30 CAP Prov:ZAIN HILTON MD 08/26/24 Albuterol Sulfate (Albuterol Sulfate Hfa) 108 Mcg/Act Aer, 108 MCG IN Q4HP PRN, #1 AER Prov:JUSTINO YEAGER PAC 06/29/24 Azithromycin (Azithromycin) 500 Mg Tab, 1 TAB PO DAILY for 5 Days, #5 TAB Prov:JUSTINO YEAGER PAC 06/29/24 Hydrocodone-Acetaminophen (Hydrocodone Bitartrate/AC 5-325 mg) 1 Tab Tab, 1 TAB PO BID, #10 TAB Prov:MIHAI SALAZAR 11/24/23 Hydrocodone-Acetaminophen (Hydrocodone Bitartrate/AC 5-325 mg) 1 Tab Tab, 1 TAB PO BID, #14 TAB Prov:MIHAI SALAZAR 10/29/23 Hydrocodone-Acetaminophen (Hydrocodone Bitartrate/AC 5-325 mg) 1 Tab Tab, 1 TAB PO Q8HP PRN, #25 TAB Prov:JUSTINO YEAGER PAC 09/30/23 Ibuprofen (Ibuprofen) 600 Mg Tab, 1 TAB PO TID, #90 TAB 1 Refill Prov:JUSTINO YEAGER PAC 09/30/23 Tamsulosin Hcl (Flomax) 0.4 Mg Cap, 1 CAP PO DAILY for 30 Days, #30 CAP 1 Refill Prov:JUSTINO YEAEGR PAC 09/30/23 Benzonatate (Benzonatate) 200 Mg Cap, 1 CAP PO TID, #30 CAP Prov:MIHAI SALAZAR 08/20/23 Acetaminophen (Tylenol Extra Strength) 500 Mg Tab, 500 MG PO QID, #30 TAB Prov:MIHAI SALAZAR 08/20/23 Oseltamivir Phosphate (Tamiflu) 75 Mg Cap, 75 MG PO BID, #10 CAP Prov:MIHAI SALAZAR 08/20/23 Ibuprofen (Ibuprofen) 800 Mg Tab, 1 TAB PO TID, #30 TAB Prov:MIHAI SALAZAR 05/26/23 Ibuprofen (Ibuprofen) 600 Mg Tab, 1 TAB PO Q6HP PRN, #30 TAB Prov:JUSTINO YEAGER PAC 05/07/23 Tramadol Hcl (Tramadol Hcl) 50 Mg Tab, 50 MG PO Q8HP PRN, #10 TAB Prov:JUSTINO YEAGER PAC 04/20/23 Docusate Sodium (Colace) 100 Mg Cap, 1 CAP PO BID for 5 Days, #10 CAP Prov:IVONNE JEFFERY MD 04/14/23 Hydrocodone-Acetaminophen (Hydrocodone Bitartrate/AC 5-325 mg) 1 Tab Tab, 1 TAB PO Q8HP PRN for 7 Days, #21 TAB Prov:ANNMARIE SCRUGGS MD 04/07/23 Acetaminophen W/ Codeine (Tylenol #4 W/Codeine) 1 Tab Tb, 1 TAB PO Q8HP PRN, #15 TAB Prov:JUSTINO YEAGER PAC 03/27/23 Acetaminophen (Tylenol Extra Strength) 500 Mg Tab, 500 MG PO BIDP PRN for 10 Days, #20 TAB 0 Refills Prov:ANASTACIA OWENS NP 02/21/23 Hydrocodone-Acetaminophen (Hydrocodone Bitartrate/AC 10-325 mg) 1 Tab Tab, 1 TAB PO Q4HP PRN, #15 TAB 0 Refills Prov:ELIANA GUDINO 01/15/23 Benzonatate (Tessalon Perles) 100 Mg Cap, 1 CAP PO TID PRN, #21 CAP Prov:MARIPOSA NESBITT 12/08/22 Tamsulosin Hcl (Flomax) 0.4 Mg Cap, 1 CAP PO DAILY, #30 CAP 11 Refills Prov:ANNMARIE SCRUGGS MD 12/06/22 Information Source: Patient, Emergency Med Personnel Mode of Arrival: EMS Severity: Moderate Timing: Minutes Duration: Since onset Prehospital treatment: 12 Lead EKG, Accucheck Location: Substernal Quality: Sharp Associated Signs and Symptoms: SOB Review of Systems REVIEW OF SYSTEMS: No fever, no chills, or fatigue HEENT: No sore throat, no earache, no congestion, no neck pain. Cardiac: (+) chest pain. No palpitations. Lungs: No shortness of breath, no cough. GI: No nausea, no vomiting, no diarrhea, no constipation, no abdominal pain : No dysuria, frequency, or urgency. No hematuria. Musculoskeletal: No joint pain , no joint swelling, no extremity edema. Skin: No rash, no itching. Neuro: No headache, no dizziness, no weakness Vital Signs Vital Signs Date Time Temp Pulse Resp B/P (MAP) Pulse Ox O2 Delivery O2 Flow Rate FiO2 10/13/24 21:37 85 10/13/24 21:05 98.5 18 144/91 (108) 98 Physical Exam General: Awake, alert and oriented. No acute distress. Skin: Skin in warm, dry and intact. Appropriate color for ethnicity. Nailbeds pink with no cyanosis. HEENT: The head is normocephalic and atraumatic. Conjunctivae are clear without exudates or hemorrhage. Sclera is non-icteric. EOM are intact. No signs of nystagmus. Eyelids are normal in appearance without swelling or lesions. Oral mucosa is pink and moist Neck: The neck is supple with normal range of motion. No JVD. Cardiac: Heart rate and rhythm are normal. No murmurs, gallops, or rubs are auscultated. Respiratory: No signs of respiratory distress. Lung sounds are clear in all lobes bilaterally without rales, ronchi, or wheezes. Abdominal: Abdomen is soft, non-tender without distention. Bowel sounds are present and normoactive in all four quadrants. Extremities: Upper and lower extremities are atraumatic in appearance without deformity or edema. Neurological: The patient is awake, alert and oriented to person, place, and time with normal speech. Speech is clear. There is no facial asymmetry. Psychiatric: Appropriate mood and affect. Good judgement and insight. No visual or auditory hallucinations. Past Medical History PAST MEDICAL HISTORY: Arthritis, Cancer (prostate), HTN Surgical History: Denies all surgeries Family History Family History: Reviewed,noncontributory to illness, Unknown Social History Smoker: Non-Smoker Alcohol: Denies ETOH Use Drugs: Denies Drug Use Lives In: Homeless EKG EKG : Pulse Rate (adult): 85 Cardiac Rhythm: NSR Block: RBBB Hypertrophy: LAE, LVH Comments Left anterior fascicular block Was a procedure done? Was a procedure done?: No CP Differential Dx Differential Diagnosis: Angina, Anxiety / Panic Attack, Electrolyte Disorder Differential Diagnosis: Angina, Chest Wall Pain, Costochondritis, Esophageal reflux/spasm, Gastritis, Myocardial Infarction X-Ray, Labs, Meds, VS Vital Signs Date Time Temp Pulse Resp B/P (MAP) Pulse Ox O2 Delivery O2 Flow Rate FiO2 10/13/24 21:37 85 10/13/24 21:05 86 10/13/24 21:05 98.5 86 18 144/91 (108) 98 Lab Test 10/13/24 22:04 10/13/24 21:14 Range/Units Troponin I High Sensitivity 8 9 </=54 ng/L White Blood Count 6.8 4.4-10.8 10^3/uL Red Blood Count 4.31 L 4.5-5.90 10^6/uL Hemoglobin 13.5 13.5-17.5 g/dL Hematocrit 41.1 41.0-53.0 % Mean Corpuscular Volume 95.5 80.0-100.0 fL Mean Corpuscular Hemoglobin 31.3 28.0-32.0 pg Mean Corpuscular Hemoglobin Concent 32.8 32.0-36.0 g/dL Red Cell Distribution Width 14.1 11.8-14.3 % Platelet Count 236 140-450 10^3/uL Mean Platelet Volume 7.3 6.9-10.8 fL Neutrophils (%) (Auto) 69.4 37.0-80.0 % Lymphocytes (%) (Auto) 23.0 10.0-50.0 % Monocytes (%) (Auto) 5.4 0.0-12.0 % Eosinophils (%) (Auto) 1.5 0.0-7.0 % Basophils (%) (Auto) 0.7 0.0-2.0 % Neutrophils # (Auto) 4.7 1.6-8.6 10 ^3/uL Lymphocytes # (Auto) 1.6 0.4-5.4 10 ^3/uL Monocytes # (Auto) 0.4 0-1.3 10 ^3/uL Eosinophils # (Auto) 0.1 0-0.8 10 ^3/uL Basophils # (Auto) 0 0-0.2 10 ^3/uL Nucleated Red Blood Cells 0.0 % Sodium Level 141 136-145 mmol/L Potassium Level 4.0 3.5-5.1 mmol/L Chloride Level 109 H 98-107 mmol/L Carbon Dioxide Level 27 20-31 mmol/L Anion Gap 5 5-15 Blood Urea Nitrogen 15 9-23 mg/dL Creatinine 1.08 0.700-1.30 mg/dL Glomerular Filtration Rate Calc 72 >90 mL/min BUN/Creatinine Ratio 13.9 10.0-20.0 Serum Glucose 136 H 74-106 mg/dL Calcium Level 9.7 8.7-10.4 mg/dL Total Bilirubin 0.2 0.2-1.0 mg/dL Aspartate Amino Transferase (AST) 15 13-40 U/L Alanine Aminotransferase (ALT) 16 7-40 U/L Alkaline Phosphatase 125 H 46-116 U/L B-Type Natriuretic Peptide 15.01 0-100 pg/mL Total Protein 7.1 5.7-8.2 g/dL Albumin 4.2 3.2-4.8 g/dL Time of 1ST Reevaluation: 21:31 Reevaluation 1ST: Unchanged Patient Education/Counseling: Diagnosis, Treatment Family Education/Counseling: No Family Present Departure 1 Departure Time of Disposition: 23:25 Impression: Primary Impression: Chest pain Disposition: 01 HOME / SELF CARE / HOMELESS Condition: Stable Additional Instructions: ED DISCHARGE INSTRUCTIONS Instructions: Please read all instructions provided in this packet carefully. Although you have been discharged from the Emergency Department, this does not mean that you have a "clean bill of health". No definitive diagnosis for your symptoms has been made today. It is possible that you are in the process of developing a serious illness. This is why you must return to the ED without fail if any new or worsening symptoms (especially if your symptoms include chest pain, trouble breathing, abdominal pain, fever, headache, confusion, trouble seeing, or trouble walking) It is also very important that you see a primary care doctor within the next 3-5 days to follow up. If you are unable to get an appointment, return to the ED for re-evaluation You had elevated blood pressure reading today. Untreated high blood pressure can have serious consequences. However, you need a follow-up appointment to recheck your blood pressure to determine whether or not you need treatment. Make an appointment with your primary care provider for this within the next week. CHEST PAIN EDUCATION There are many things that can cause chest pain. Some are not serious and will get better on their own in a few days. But some kinds of chest pain need more testing and treatment. Your doctor may have recommended a follow-up visit in the next few days. If you are not getting better, you may need more tests or treatment. Even though your doctor has released you, you still need to watch for any problems. The doctor carefully checked you, but sometimes problems can develop later. If you have new symptoms or if your symptoms do not get better, get medical care right away. If you have worse or different chest pain or pressure that lasts more than 5 minutes or you passed out (lost consciousness), call 911 or seek other emergency help right away. A medical visit is only one step in your treatment. Even if you feel better, you still need to do what your doctor recommends, such as going to all suggested follow-up appointments and taking medicines exactly as directed. This will help you recover and help prevent future problems. How can you care for yourself at home? Rest until you feel better. Take your medicine exactly as prescribed. Call your doctor if you think you are having a problem with your medicine. Do not drive after taking a prescription pain medicine. When should you call for help? Call 911 if: You passed out (lost consciousness). You have severe difficulty breathing. You have symptoms of a heart attack. These may include: Chest pain or pressure, or a strange feeling in your chest. Sweating. Shortness of breath. Nausea or vomiting. Pain, pressure, or a strange feeling in your back, neck, jaw, or upper belly or in one or both shoulders or arms. Lightheadedness or sudden weakness. A fast or irregular heartbeat. After you call 911, the continuous vulcanizing machine operator may tell you to chew 1 adult-strength or 2 to 4 low-dose aspirin. Wait for an ambulance. Do not try to drive yourself. Call your doctor now or seek immediate medical care if: You have any trouble breathing. You have new or different chest pain. You are dizzy or lightheaded, or you feel like you may faint. Watch closely for changes in your health, and be sure to contact your doctor if you do not get better as expected. Current as of: March 07, 2024 Author: [employer] Staff? Comments 74-year-old male with chest pain. EKG negative for signs of ischemia. High sensitivity troponin negative x2. CXR shows no acute process. Presentation not suggestive of acute coronary syndrome, pulmonary embolism or aortic dissection. Patient improved at time of discharge. No hypoxia, respiratory distress or dyspnea at discharge. Patient felt stable for discharge home. Patient well-appearing, nontoxic. Advised prompt follow-up with PCP, return to the ED with any new, worsening or concerning symptoms. Extensive evaluation was performed in attempt to identify or rule out: (See differential diagnosis section) The following tests were ordered, and results were reviewed by me: (See diagnostic results section) The following test were independently interpreted by me: EKG, chest x-ray I reviewed and agreed with the following test results read by other providers: Chest x-ray Decision regarding hospitalization or escalation of hospital level of care: Risks and benefits of admission for further treatment of patient's condition was considered however due to patient's stable condition patient will be discharged to follow up closely or return to care for worsening of condition or inability to follow up. Critical Care Note Critical Care Time?: Yes (35 min-critical care time only) Critical care comment: Active chest pains Stability Stability form required: No Heart Score Heart Score: Heart Score Response (Comments) Value History Moderate Suspicious 1 EKG Repolarization Disturb 1 Age >65 2 Risk Factors >3 or Hx ASHD 2 Troponin Normal limit 0 Total 6 I personally scribed for RODDY GUIDRY MD ([email or web address]) on 10/13/24 at 21:37. Electronically submitted by William Olivares ([email or web address]). RODDY GUIDRY MD Oct 13, 2024 21:37
[2024-10-13 21:43] LABS: Alanine Aminotransferase 16 U/L (7-40); Albumin 4.2 g/dL (3.2-4.8); Anion Gap 5 (5-15); Aspartate Aminotransferase 15 U/L (13-40); BUN/Creatinine Ratio 13.9 (10.0-20.0); Blood Urea Nitrogen 15 mg/dL (9-23); Calcium 9.7 mg/dL (8.7-10.4); Carbon Dioxide 27 mmol/L (20-31); Sodium 141 mmol/L (136-145); Total Protein 7.1 g/dL (5.7-8.2)
[2024-10-13 21:47] LABS: Alkaline Phosphatase 125 U/L (46-116); Bilirubin, Total 0.2 mg/dL (0.2-1.0); Chloride 109 mmol/L (98-107); Glucose 136 mg/dL (74-106)
--- NOTE | 2024-10-13 21:55 | DVH ---
CHEST RADIOGRAPH Indication: cp Technique: Single frontal view of the chest was obtained Comparison: XY CHEST PORTABLE on DOS: 06/29/24, XY CHEST PORTABLE on DOS: 03/24/23, XY CHEST XRAY 1 EW on DOS: 12/08/22 FINDINGS: Lines and Tubes: None Lungs: No focal consolidation. Mild hyperinflation of the lungs. Retrocardiac density which may repre sent hiatal hernia. Pleura: No effusion. No pneumothorax. Cardiomediastinal contours: Heart size is within normal limits. Uncoiling of the aorta. Bones: No acute osseous abnormality. IMPRESSION: Mild hyperinflation of the lungs with no focal consolidation. There [facility].
[2024-10-13] MEDS: ASPirin 81 mg TAB PO ONE (22:45)
[2024-10-14] VITALS: BP 148/92; PULSE 78; RESP 16; TEMP 98.6; O2SAT 95
--- NOTE | 2024-10-14 04:36 | ECG ---
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
--- NOTE | 2024-10-17 15:14 | ECG ---
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
== END 2024-10-14 00:06 | disposition home or self-care (01) ==
LOC: ER 21:03 → EDBD 21:03 → ER 10-14 00:06
DX: R07.89 Other chest pain (principal); I10 Essential (primary) hypertension; R06.02 Shortness of breath; Z79.2 Long term (current) use of antibiotics; Z79.899 Other long term (current) drug therapy; Z88.0 Allergy status to penicillin; Z88.6 Allergy status to analgesic agent; Z59.00 Homelessness unspecified
CPT/HCPCS: 36415; 71045; 80053; 83880; 84484; 85025; 93005

== ENCOUNTER 2024-10-26 21:38 | Emergency (ER) | payer OTHER, MEDICAID ==
[~2024-10-26] VITALS: Ht 180.3 cm; Wt 80.0 kg
[2024-10-26] MEDS ORDERED: ACETAMINOPHEN 325 MG TAB PO ONE (22:00)
[2024-10-26 22:10] LABS: Basophils # (auto) 0 10 ^3/uL (0-0.2); Basophils % (auto) 0.9 % (0.0-2.0); Eosinophils # (auto) 0.1 10 ^3/uL (0-0.8); Eosinophils % (auto) 1.6 % (0.0-7.0); Hematocrit 39.3 % (41.0-53.0); Hemoglobin 12.8 g/dL (13.5-17.5); Lymphocytes # (auto) 1.7 10 ^3/uL (0.4-5.4); Lymphocytes % (auto) 29.4 % (10.0-50.0); Mean Corpuscular Hemoglobin 31.1 pg (28.0-32.0); Mean Corpuscular Hgb Conc. 32.7 g/dL (32.0-36.0); Mean Corpuscular Volume 95.3 fL (80.0-100.0); Monocytes # (auto) 0.4 10 ^3/uL (0-1.3); Monocytes % (auto) 6.6 % (0.0-12.0); Neutrophils # (auto) 3.6 10 ^3/uL (1.6-8.6); Neutrophils % (auto) 61.5 % (37.0-80.0); Platelet Count (auto) 267 10^3/uL (140-450); Red Blood Cells 4.12 10^6/uL (4.5-5.90); Red Cell Distribution Width 13.9 % (11.8-14.3); White Blood Cell 5.8 10^3/uL (4.4-10.8)
--- NOTE | 2024-10-26 22:30 | DVH ---
CHEST RADIOGRAPH Indication: Chest pain Technique: Single frontal view of the chest was obtained COMPARISON: XY CHEST XRAY 1 VIEW on DOS: 10/13/24, XY CHEST PORTABLE on DOS: 06/29/24, XY CHEST PORTABL E on DOS: 03/24/23, XY CHEST XRAY 1 VIEW on DOS: 12/08/22, XY CHEST PORTABLE on DOS: 11/20/22 FINDINGS: Lines and Tubes: None Lungs: Mild bibasilar subsegmental atelectasis/consolidation. Pleura: No effusion. No pneumothorax. Cardiomediastinal contours: Unremarkable IMPRESSION: Mild bibasilar subsegmental atelectasis/consolidation.
[2024-10-26 23:00] VITALS: BP 133/84; PULSE 83; RESP 18; TEMP 97.8; O2SAT 97
[2024-10-26] MEDS: ACETAMINOPHEN 500 MG TAB or CAP PO ONE (23:01)
[2024-10-27] MEDS ORDERED: ACET500T58 PO (00:07)
--- NOTE | 2024-10-27 00:07 | ED.PDOC ---
HPI Comments This patient is a homeless 74-year-old male who I am very familiar with due to multiple visits story ED through arrives to again today via EMS due to complaints of chest pain concerns. Patient has a long history of chest pain concerns. Patient has not followed up with the primary care provider or creative specialist. Patient denies any fever nausea or vomiting. Vital signs were stable on arrival. Chief Complaint: Chest Pain Time Seen by MD: 21:42 Primary Care Provider: NONE Reviewed Notes: Nurses Notes, [place] Notes Allergies: Coded Allergies: Ibuprofen (Verified Allergy, Unknown, 09/30/23) Penicillins (Verified Allergy, Unknown, 01/26/23) Home Meds Active Scripts Tamsulosin Hcl (Tamsulosin Hcl) 0.4 Mg Cap, 1 CAP PO DAILY, #30 CAP 5 Refills Prov:LYNDSEY HOSKINS MD 09/29/24 Hydrocodone-Acetaminophen (Hydrocodone/Acetaminophen 5-325 mg) 1 Tab Tab, 1 TAB PO BID for 7 Days, #14 TAB Prov:LYNDSEY HOSKINS MD 09/29/24 Hydrocodone-Acetaminophen (Hydrocodone Bitartrate/AC 5-325 mg) 1 Tab Tab, 1 TAB PO Q6HP PRN, #20 TAB Prov:ANNMARIE SCRUGGS MD 09/18/24 Tamsulosin HCl (Tamsulosin Hydrochloride) 0.4 Mg Cap, 0.4 MG PO DAILY@BREAKFAST for 30 Days, #30 CAP Prov:ZAIN HILTON MD 08/26/24 Albuterol Sulfate (Albuterol Sulfate Hfa) 108 Mcg/Act Aer, 108 MCG IN Q4HP PRN, #1 AER Prov:JUSTINO YEAGER PAC 06/29/24 Azithromycin (Azithromycin) 500 Mg Tab, 1 TAB PO DAILY for 5 Days, #5 TAB Prov:JUSTINO YEAGER PAC 06/29/24 Hydrocodone-Acetaminophen (Hydrocodone Bitartrate/AC 5-325 mg) 1 Tab Tab, 1 TAB PO BID, #10 TAB Prov:MIHAI SALAZAR 11/24/23 Hydrocodone-Acetaminophen (Hydrocodone Bitartrate/AC 5-325 mg) 1 Tab Tab, 1 TAB PO BID, #14 TAB Prov:MIHAI SALAZAR 10/29/23 Hydrocodone-Acetaminophen (Hydrocodone Bitartrate/AC 5-325 mg) 1 Tab Tab, 1 TAB PO Q8HP PRN, #25 TAB Prov:JUSTINO YEAGER PAC 09/30/23 Ibuprofen (Ibuprofen) 600 Mg Tab, 1 TAB PO TID, #90 TAB 1 Refill Prov:JUSTINO YEAGER PAC 09/30/23 Tamsulosin Hcl (Flomax) 0.4 Mg Cap, 1 CAP PO DAILY for 30 Days, #30 CAP 1 Refill Prov:JUSTINO YEAGER PAC 09/30/23 Benzonatate (Benzonatate) 200 Mg Cap, 1 CAP PO TID, #30 CAP Prov:MIHAI SALAZAR 08/20/23 Acetaminophen (Tylenol Extra Strength) 500 Mg Tab, 500 MG PO QID, #30 TAB Prov:MIHAI SALAZAR 08/20/23 Oseltamivir Phosphate (Tamiflu) 75 Mg Cap, 75 MG PO BID, #10 CAP Prov:MIHAI SALAZAR 08/20/23 Ibuprofen (Ibuprofen) 800 Mg Tab, 1 TAB PO TID, #30 TAB Prov:MIHAI SALAZAR 05/26/23 Ibuprofen (Ibuprofen) 600 Mg Tab, 1 TAB PO Q6HP PRN, #30 TAB Prov:JUSTINO YEAGER PAC 05/07/23 Tramadol Hcl (Tramadol Hcl) 50 Mg Tab, 50 MG PO Q8HP PRN, #10 TAB Prov:JUSTINO YEAGER PAC 04/20/23 Docusate Sodium (Colace) 100 Mg Cap, 1 CAP PO BID for 5 Days, #10 CAP Prov:IVONNE JEFFERY MD 04/14/23 Hydrocodone-Acetaminophen (Hydrocodone Bitartrate/AC 5-325 mg) 1 Tab Tab, 1 TAB PO Q8HP PRN for 7 Days, #21 TAB Prov:ANNMARIE SCRUGGS MD 04/07/23 Acetaminophen W/ Codeine (Tylenol #4 W/Codeine) 1 Tab Tb, 1 TAB PO Q8HP PRN, #15 TAB Prov:JUSTINO YEAGER PAC 03/27/23 Acetaminophen (Tylenol Extra Strength) 500 Mg Tab, 500 MG PO BIDP PRN for 10 Days, #20 TAB 0 Refills Prov:ANASTACIA OWENS NP 02/21/23 Hydrocodone-Acetaminophen (Hydrocodone Bitartrate/AC 10-325 mg) 1 Tab Tab, 1 TAB PO Q4HP PRN, #15 TAB 0 Refills Prov:ELIANA GUDINO 01/15/23 Benzonatate (Tessalon Perles) 100 Mg Cap, 1 CAP PO TID PRN, #21 CAP Prov:MARIPOSA NESBITT 12/08/22 Tamsulosin Hcl (Flomax) 0.4 Mg Cap, 1 CAP PO DAILY, #30 CAP 11 Refills Prov:ANNMARIE SCRUGGS MD 12/06/22 Information Source: Patient, Emergency Med Personnel Mode of Arrival: EMS Severity: Moderate Timing: Hours Duration: Since onset Prehospital treatment: 12 Lead EKG Location: Substernal Quality: Sharp, Stabbing Onset: At Rest Cardiac Risk Factors: None History of: Similar pain in past Past Medical History PAST MEDICAL HISTORY: Arthritis, Cancer, HTN Past Medical History (Other): Chest pain Surgical History: Denies all surgeries Family History Family History: Reviewed,noncontributory to illness, Unknown Social History Smoker: Non-Smoker Alcohol: Denies ETOH Use Drugs: Denies Drug Use Lives In: Homeless Constitutional: denies: chills, diaphoresis, fatigue, fever, malaise, sweats, weakness, others EENTM: denies: blurred vision, double vision, ear bleeding, ear discharge, ear drainage, ear pain, ear ringing, eye pain, eye redness, hearing loss, mouth pain, mouth swelling, nasal discharge, nose bleeding, nose congestion, nose pain, photophobia, tearing, throat pain, throat swelling, voice changes, others Respiratory: denies: cough, hemoptysis, orthopnea, SOB at rest, shortness of breath, SOB with excertion, stridor, wheezing, others Cardiovascular: reports: chest pain; denies: dizzy spells, diaphoresis, Dyspnea on exertion, edema, irregular heart beat, left arm pain, lightheadedness, palpitations, PND, syncope, others Gastrointestinal: denies: abdomen distended, abdominal pain, blood streaked bowels, constipated, diarrhea, dysphagia, difficulty swallowing, hematemesis, melena, nausea, poor appetite, poor fluid intake, rectal bleeding, rectal pain, vomiting, others Genitourinary: denies: burning, dysuria, flank pain, frequency, hematuria, incontinence, penile discharge, penile sore, pain, testicle pain, testicle swelling, urgency, others Neurological: denies: dizziness, fainting, headache, left sided numbness, left sided weakness, numbness, paresthesia, pre-existing deficit, right sided numbness, right sided weakness, seizure, speech problems, tingling, tremors, weakness, others Musculoskeletal: denies: back pain, gout, joint pain, joint swelling, muscle pain, muscle stiffness, neck pain, others Integumetry: denies: bruises, change in color, change in hair/nails, dryness, laceration, lesions, lumps, rash, wounds, others Allergic/Immunocompromised: denies: Difficulty Healing, Frequent Infections, Hives, Itching, others Hematologic/Lymphatic: denies: anemia, blood clots, easy bleeding, easy bruising, swollen glands, others Endocrine: denies: excessive hunger, excessive sweating, excessive thirst, excessive urination, flushing, intolerance to cold, intolerance to heat, unexplained weight gain, unexplained weight loss, others Psychiatric: denies: anxiety, bipolar disorder, depression, hopeless, panic disorder, schizophrenia, sleepless, suicidal, others Physical Exam General Appearance: Mild Distress ( moderate distress due to chest pain concerns. Patient was pleasant at time of evaluation.), Normal HEENT: Normal ENT Inspection, Pharynx Normal, TMs Normal Neck: Full Range of Motion, Non-Tender, Normal, Normal Inspection Respiratory: Chest Non-Tender, Lungs Clear, No Accessory Muscle Use, No Respiratory Distress, Normal Breath Sounds, Other ( Unremarkable auscultation bilateral lung dow.) Cardiovascular: No Edema, No JVD, No Murmur, No Gallop, Normal Peripheral Pulse s, Regular Rate/Rhythm, Other ( Unremarkable cardiac evaluation.) Breast Exam: Deferred Gastrointestinal: No Organomegaly, Non Tender, No Pulsatile Mass, Normal Bowel Sounds, Soft Genitalia: Deferred Pelvic: Deferred Rectal: Deferred Extremities: No calf tenderness, Normal capillary refill, Normal inspection, Normal range of motion, Non-tender, No pedal edema Neurologic: Alert, No Motor Deficits, Normal Affect, Normal Mood, No Sensory Deficits Cerebellar Function: Normal Reflexes: Normal Skin: Dry, Normal Color, Warm Lymphatic: No Adenopathy Was a procedure done? Was a procedure done?: No CP Differential Dx Differential Diagnosis: A-fib, Anxiety / Panic Attack, Atrial Dysrhythmia, AV Block 1st Degree, [place] Differential Diagnosis: Pneumonia X-Ray, Labs, Meds, VS Vital Signs Date Time Temp Pulse Resp B/P (MAP) Pulse Ox O2 Delivery O2 Flow Rate FiO2 10/26/24 23:00 97.8 83 18 133/84 (100) 97 97.8 10/26/24 23:00 83 18 97 Room Air 10/26/24 21:48 80 10/26/24 21:38 98.3 91 18 112/71 (85) 95 98.3 Lab Test 10/26/24 22:02 Range/Units White Blood Count 5.8 4.4-10.8 10^3/uL Red Blood Count 4.12 L 4.5-5.90 10^6/uL Hemoglobin 12.8 L 13.5-17.5 g/dL Hematocrit 39.3 L 41.0-53.0 % Mean Corpuscular Volume 95.3 80.0-100.0 fL Mean Corpuscular Hemoglobin 31.1 28.0-32.0 pg Mean Corpuscular Hemoglobin Concent 32.7 32.0-36.0 g/dL Red Cell Distribution Width 13.9 11.8-14.3 % Platelet Count 267 140-450 10^3/uL Mean Platelet Volume 7.0 6.9-10.8 fL Neutrophils (%) (Auto) 61.5 37.0-80.0 % Lymphocytes (%) (Auto) 29.4 10.0-50.0 % Monocytes (%) (Auto) 6.6 0.0-12.0 % Eosinophils (%) (Auto) 1.6 0.0-7.0 % Basophils (%) (Auto) 0.9 0.0-2.0 % Neutrophils # (Auto) 3.6 1.6-8.6 10 ^3/uL Lymphocytes # (Auto) 1.7 0.4-5.4 10 ^3/uL Monocytes # (Auto) 0.4 0-1.3 10 ^3/uL Eosinophils # (Auto) 0.1 0-0.8 10 ^3/uL Basophils # (Auto) 0 0-0.2 10 ^3/uL Nucleated Red Blood Cells 0.0 % Troponin I High Sensitivity 8 </=54 ng/L Current Medications Medications (Trade) Dose Ordered Sig/Madiha Route Start Time Stop Time Status Last Admin Acetaminophen (Tylenol Tablet Or Capsule) 1,000 mg ONCE ONCE PO 10/26/24 22:30 10/26/24 22:32 DC 10/26/24 23:01 X-Ray, Labs, Meds, VS Comment All studies performed the ED were evaluated by me personally. Serum studies were unremarkable for any systemic process. EKG revealed a sinus rhythm with a rate of 80. Left anterior fascicular block. [place] interval 182 and QT interval of 396. Relatively unremarkable EKG. Chest x-ray was unremarkable for any definitive consolidation signs of ammonia. Patient will be diagnosed with continued chest pain concerns. Time of 1ST Reevaluation: 00:04 Reevaluation 1ST: Improved Consultation: PCP, Cardiology Patient Education/Counseling: Diagnosis, Treatment Family Education/Counseling: Diagnosis, Treatment Departure 1 Departure Time of Disposition: 00:05 Impression: Primary Impression: Chest pain Disposition: HOME / SELF CARE / HOMELESS Condition: Stable Additional Instructions: Advised patient utilize pain medication as needed for symptomatic relief. Patient needs to follow up with the primary care provider and creative specialist for evaluation of his chronic chest pain concerns. e-Prescriptions Acetaminophen (Acetaminophen) 500 Mg Tab 500 MG PO Q4HP PRN, #30 TAB Prov: JUSTINO YEAGER PAC 10/27/24 Discharged With: Self Critical Care Note Critical Care Time?: No Stability Stability form required: No Heart Score Heart Score: Heart Score Response (Comments) Value History Slightly Suspicious 0 EKG Repolarization Disturb 1 Age >65 2 Risk Factors 1 or 2 risk factors 1 Troponin Normal limit 0 Total 4 JUSTINO YEAGER PAC Oct 27, 2024 00:07
--- NOTE | 2024-10-27 07:10 | ECG ---
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
== END 2024-10-27 01:21 | disposition home or self-care (01) ==
LOC: EDBD 21:38 → ER 21:38
DX: R07.89 Other chest pain (principal); I10 Essential (primary) hypertension; Z59.00 Homelessness unspecified; Z79.1 Long term (current) use of non-steroidal anti-inflammatories (NSAID); Z88.0 Allergy status to penicillin; Z88.6 Allergy status to analgesic agent; Z79.899 Other long term (current) drug therapy
CPT/HCPCS: 36415; 71045; 84484; 85025; 93005

== ENCOUNTER 2024-11-09 17:55 | Emergency (ER) | payer OTHER, MEDICAID ==
[~2024-11-09] VITALS: Ht 177.8 cm; Wt 93.7 kg
[~2024-11-09 17:55] MED LIST changes: +ACET500T58 PO
--- NOTE | 2024-11-09 18:22 | ECG ---
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
--- NOTE | 2024-11-09 18:29 | ED.PDOC ---
Musculoskeletal HPI Comments 74y F who presents to the ED for chief complaint of extremity pain. Pt states he has been having pain in his shoulders bilaterally with associated pain in his bilateral lower extremity for the past 3 days. Pt states the pain is 10/10, constant, with no associated exacerbating or relieving factors. Pt has no associated symptoms but otherwise denies nausea, vomiting, fever, cough, chills, dysuria, hematuria or hematemesis. Pt has noted temp of 99.9F with all other vitals in normal range. Pt otherwise denies any fall or recent injury. Pt otherwise denies any other symptoms at this time. Chief Complaint: extremity pain Time Seen by MD: 18:25 Primary Care Provider: DENIES Reviewed Notes: Nurses Notes, Medications, Allergies Allergies: Coded Allergies: Ibuprofen (Verified Allergy, Unknown, 09/30/23) Penicillins (Verified Allergy, Unknown, 01/26/23) Home Meds Active Scripts Acetaminophen (Acetaminophen) 500 Mg Tab, 500 MG PO Q4HP PRN, #30 TAB Prov:JUSTINO YEAGER PAC 10/27/24 Tamsulosin Hcl (Tamsulosin Hcl) 0.4 Mg Cap, 1 CAP PO DAILY, #30 CAP 5 Refills Prov:LYNDSEY HOSKINS MD 09/29/24 Hydrocodone-Acetaminophen (Hydrocodone/Acetaminophen 5-325 mg) 1 Tab Tab, 1 TAB PO BID for 7 Days, #14 TAB Prov:LYNDSEY HOSKINS MD 09/29/24 Hydrocodone-Acetaminophen (Hydrocodone Bitartrate/AC 5-325 mg) 1 Tab Tab, 1 TAB PO Q6HP PRN, #20 TAB Prov:ANNMARIE SCRUGGS MD 09/18/24 Tamsulosin HCl (Tamsulosin Hydrochloride) 0.4 Mg Cap, 0.4 MG PO DAILY@BREAKFAST for 30 Days, #30 CAP Prov:ZAIN HILTON MD 08/26/24 Albuterol Sulfate (Albuterol Sulfate Hfa) 108 Mcg/Act Aer, 108 MCG IN Q4HP PRN, #1 AER Prov:JUSTINO YEAGER PAC 06/29/24 Azithromycin (Azithromycin) 500 Mg Tab, 1 TAB PO DAILY for 5 Days, #5 TAB Prov:JUSTINO YEAGER PAC 06/29/24 Hydrocodone-Acetaminophen (Hydrocodone Bitartrate/AC 5-325 mg) 1 Tab Tab, 1 TAB PO BID, #10 TAB Prov:MARIETILAPAOLO BROWN 11/24/23 Hydrocodone-Acetaminophen (Hydrocodone Bitartrate/AC 5-325 mg) 1 Tab Tab, 1 TAB PO BID, #14 TAB Prov:MARIETILAPAOLO BROWN 10/29/23 Hydrocodone-Acetaminophen (Hydrocodone Bitartrate/AC 5-325 mg) 1 Tab Tab, 1 TAB PO Q8HP PRN, #25 TAB Prov:JUSTINO YEAGER [facility] 09/30/23 Ibuprofen (Ibuprofen) 600 Mg Tab, 1 TAB PO TID, #90 TAB 1 Refill Prov:JUSTINO YEAGER PAC 09/30/23 Tamsulosin Hcl (Flomax) 0.4 Mg Cap, 1 CAP PO DAILY for 30 Days, #30 CAP 1 Refill Prov:JUSTINO YEAGER [facility] 09/30/23 Benzonatate (Benzonatate) 200 Mg Cap, 1 CAP PO TID, #30 CAP Prov:MIHAI SALAZAR 08/20/23 Acetaminophen (Tylenol Extra Strength) 500 Mg Tab, 500 MG PO QID, #30 TAB Prov:MIHAI SALAZAR 08/20/23 Oseltamivir Phosphate (Tamiflu) 75 Mg Cap, 75 MG PO BID, #10 CAP Prov:MIHAI SALAZAR 08/20/23 Ibuprofen (Ibuprofen) 800 Mg Tab, 1 TAB PO TID, #30 TAB Prov:MARIETILAPAOLO BROWN 05/26/23 Ibuprofen (Ibuprofen) 600 Mg Tab, 1 TAB PO Q6HP PRN, #30 TAB Prov:JUSTINO YEAGER [facility] 05/07/23 Tramadol Hcl (Tramadol Hcl) 50 Mg Tab, 50 MG PO Q8HP PRN, #10 TAB Prov:JUSTINO YEAGER [facility] 04/20/23 Docusate Sodium (Colace) 100 Mg Cap, 1 CAP PO BID for 5 Days, #10 CAP Prov:IVONNE JEFFERY MD 04/14/23 Hydrocodone-Acetaminophen (Hydrocodone Bitartrate/AC 5-325 mg) 1 Tab Tab, 1 TAB PO Q8HP PRN for 7 Days, #21 TAB Prov:ANNMARIE SCRUGGS MD 04/07/23 Acetaminophen W/ Codeine (Tylenol #4 W/Codeine) 1 Tab Tb, 1 TAB PO Q8HP PRN, #15 TAB Prov:JUSTINO YEAGER PAC 03/27/23 Acetaminophen (Tylenol Extra Strength) 500 Mg Tab, 500 MG PO BIDP PRN for 10 Days, #20 TAB 0 Refills Prov:ANASTACIA OWENS SERVICE COUNSELOR 02/21/23 Hydrocodone-Acetaminophen (Hydrocodone Bitartrate/AC 10-325 mg) 1 Tab Tab, 1 TAB PO Q4HP PRN, #15 TAB 0 Refills Prov:ELIANA GUDINO 01/15/23 Benzonatate (Tessalon Perles) 100 Mg Cap, 1 CAP PO TID PRN, #21 CAP Prov:MARIPOSA NESBITTP 12/08/22 Tamsulosin Hcl (Flomax) 0.4 Mg Cap, 1 CAP PO DAILY, #30 CAP 11 Refills Prov:ANNMARIE SCRUGGS MD 12/06/22 Information Source: Patient Mode of Arrival: Ambulatory Brought in by: self Location: Bilateral Extremity Location: Leg, Shoulder Timing: Days Prehospital treatment: None Severity: Moderate Able to Move Extremity: Yes Bear Weight: Fully Pain: Moderate Mechanism: Spontaneous Circumstances: Unknown Onset of Symptoms: Spontaneous Symptoms: Pain DVT Risk Factors: NONE Last Tetanus: Unknown Associated signs and symptoms: Shoulder pain, Below joint pain Past Medical History PAST MEDICAL HISTORY: Arthritis, Cancer, High Lipids, HTN Past Medical History (Other): BPH Surgical History: Denies all surgeries Family History Family History: Reviewed,noncontributory to illness, Unknown Social History Smoker: Non-Smoker Alcohol: Denies ETOH Use Drugs: Denies Drug Use Lives In: Homeless Constitutional: denies: chills, diaphoresis, fatigue, fever, malaise, sweats, weakness, others EENTM: denies: blurred vision, double vision, ear bleeding, ear discharge, ear drainage, ear pain, ear ringing, eye pain, eye redness, hearing loss, mouth pain, mouth swelling, nasal discharge, nose bleeding, nose congestion, nose pain, photophobia, tearing, throat pain, throat swelling, voice changes, others Respiratory: denies: cough, hemoptysis, orthopnea, SOB at rest, shortness of breath, SOB with excertion, stridor, wheezing, others Cardiovascular: denies: chest pain, dizzy spells, diaphoresis, Dyspnea on exertion, edema, irregular heart beat, left arm pain, lightheadedness, palpitations, PND, syncope, others Gastrointestinal: denies: abdomen distended, abdominal pain, blood streaked bowels, constipated, diarrhea, dysphagia, difficulty swallowing, hematemesis, melena, nausea, poor appetite, poor fluid intake, rectal bleeding, rectal pain, vomiting, others Genitourinary: denies: burning, dysuria, flank pain, frequency, hematuria, incontinence, penile discharge, penile sore, pain, testicle pain, testicle swelling, urgency, others Neurological: denies: dizziness, fainting, headache, left sided numbness, left sided weakness, numbness, paresthesia, pre-existing deficit, right sided numbness, right sided weakness, seizure, speech problems, tingling, tremors, weakness, others Musculoskeletal: reports: joint pain, muscle pain; denies: back pain, gout, joint swelling, muscle stiffness, neck pain, others Integumetry: denies: bruises, change in color, change in hair/nails, dryness, laceration, lesions, lumps, rash, wounds, others Allergic/Immunocompromised: denies: Difficulty Healing, Frequent Infections, Hives, Itching, others Hematologic/Lymphatic: denies: anemia, blood clots, easy bleeding, easy bruising, swollen glands, others Endocrine: denies: excessive hunger, excessive sweating, excessive thirst, excessive urination, flushing, intolerance to cold, intolerance to heat, unexplained weight gain, unexplained weight loss, others Psychiatric: denies: anxiety, bipolar disorder, depression, hopeless, panic disorder, schizophrenia, sleepless, suicidal, others All Other Systems: Reviewed and Negative Physical Exam General Appearance: No Apparent Distress HEENT: Normal ENT Inspection, Pharynx Normal, TMs Normal Neck: Full Range of Motion, Non-Tender, Normal, Normal Inspection Respiratory: Chest Non-Tender, Lungs Clear, No Accessory Muscle Use, No Respiratory Distress, Normal Breath Sounds Cardiovascular: No Edema, No JVD, No Murmur, No Gallop, Normal Peripheral Pulses, Regular Rate/Rhythm Breast Exam: Deferred Gastrointestinal: No Organomegaly, Non Tender, No Pulsatile Mass, Normal Bowel Sounds, Soft Genitalia: Deferred Pelvic: Deferred Rectal: Deferred Extremities: No calf tenderness, Normal capillary refill, Normal inspection, Normal range of motion, Non-tender, No pedal edema Musculoskeletal : Location: Bilateral (Joint pain) Apperance: Limited ROM Neurologic: Alert, 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 Was a procedure done?: No EKG EKG : Pulse Rate (adult): 101 [place]: Normal Cardiac Rhythm: ST Block: None Hypertrophy: None ST: Normal Differential Diagnosis EXT Differential Diagnosis: Dislocation, DJD, Strain, Arthritis X-Ray, Labs, Meds, VS Vital Signs Date Time Temp Pulse Resp B/P (MAP) Pulse Ox O2 Delivery O2 Flow Rate FiO2 11/09/24 18:29 101 11/09/24 18:08 101 11/09/24 18:03 99.9 103 18 122/78 (93) 96 99.9 THE PATIENT WAS BEING DISCHARGED THE PATIENT WILL FOLLOW UP WITH THE PRIMARY CARE DOCTOR THE PATIENT WILL RETURN TO THE EMERGENCY DEPARTMENT'S CONDITION WORSENS. Time of 1ST Reevaluation: 18:55 Reevaluation 1ST: Unchanged Time of 2ND Reevaluation: 18:37 Reevaluation 2ND: Improved Patient Education/Counseling: Diagnosis, Treatment, Prognosis, Need For Follow Up Family Education/Counseling: No Family Present Additional Information -Reviewed patient's previous visit(s): - The following tests were ordered, and results were reviewed by me: ekg x1 - Additional information was gathered from interviewing the following independent Historian: patient - I reviewed and agreed with the following test results read by other provider: none - I discussed treatments and results with medical personnel and: patient Comprehensive systems review obtained and negative except for what is stated in the HPI. Departure 1 Departure Time of Disposition: 18:38 Impression: Primary Impression: Joint pain Qualified Codes: M25.50 - Pain in unspecified joint Disposition: 01 HOME / SELF CARE / HOMELESS Condition: Fair Discharged With: Self Critical Care Note Critical Care Time?: No Stability Stability form required: No Heart Score Heart Score: Heart Score Response (Comments) Value History N/A 0 EKG N/A 0 Age N/A 0 Risk Factors N/A 0 Troponin N/A 0 Total 0 I personally scribed for ANNMARIE SCRUGGS MD ([email or web address]) on 11/09/24 at 18:29. Electronically submitted by Eveline Mascorro ([email or web address]). ANNMARIE SCRUGGS MD Nov 09, 2024 18:29
[2024-11-09 19:06] LABS: Urine Bacteria None Seen /hpf (None Seen)
[2024-11-09 19:28] LABS: Urine Blood Negative /uL (Negative); Urine Clarity Clear (Clear); Urine Color Light-Yellow (Yellow); Urine Protein, UAD Negative (Negative); Urine Specific Gravity 1.018 (1.001-1.035); Urine Squamous Epithelial Cell FEW /hpf (<5); Urine Urobilinogen Normal (Negative); Urine WBC 1 /HPF (0-3); Urine pH 5.5 (5.0-9.0)
[2024-11-09 20:47] VITALS: BP 125/77; TEMP 98
[2024-11-09 20:48] VITALS: PULSE 86; RESP 16; O2SAT 96
== END 2024-11-09 20:58 | disposition home or self-care (01) ==
LOC: ER 17:55
DX: M25.511 Pain in right shoulder (principal); M25.512 Pain in left shoulder; M79.604 Pain in right leg; M79.605 Pain in left leg; M19.90 Unspecified osteoarthritis, unspecified site; I10 Essential (primary) hypertension; E78.5 Hyperlipidemia, unspecified; Z79.1 Long term (current) use of non-steroidal anti-inflammatories (NSAID); Z59.00 Homelessness unspecified; Z79.899 Other long term (current) drug therapy; Z88.0 Allergy status to penicillin; Z88.6 Allergy status to analgesic agent
CPT/HCPCS: 81001; 93005

== ENCOUNTER 2024-11-12 21:57 | Emergency (ER) | payer OTHER, MEDICAID ==
[~2024-11-12] VITALS: Ht 182.9 cm; Wt 86.2 kg
[~2024-11-12 21:57] MED LIST changes: +LOS25T PO
--- NOTE | 2024-11-12 22:36 | ED.PDOC ---
HPI Comments 74-year-old male with PMHx HLD, Prostate presents with a chief complaint of chest pain x onset 1700 this evening. Patient states that his pain is localized to his right chest wall, radiates to his right arm, and denies any SOB with it. Patient mentions that he took NTG and ASA that EMS gave him and that it relieved some of his pain. Patient denies any injuries or trauma prior to onset of symptoms. Chief Complaint: Chest Pain Time Seen by MD: 22:05 Primary Care Provider: DENIES Reviewed Notes: Medications, Allergies Allergies: Coded Allergies: Ibuprofen (Verified Allergy, Unknown, 09/30/23) Penicillins (Verified Allergy, Unknown, 01/26/23) Home Meds Active Scripts Acetaminophen (Acetaminophen) 500 Mg Tab, 500 MG PO Q4HP PRN, #30 TAB Prov:JUSTINO YEAGER PAC 10/27/24 Tamsulosin Hcl (Tamsulosin Hcl) 0.4 Mg Cap, 1 CAP PO DAILY, #30 CAP 5 Refills Prov:LYNDSEY HOSKINS MD 09/29/24 Hydrocodone-Acetaminophen (Hydrocodone/Acetaminophen 5-325 mg) 1 Tab Tab, 1 TAB PO BID for 7 Days, #14 TAB Prov:LYNDSEY HOSKINS MD 09/29/24 Hydrocodone-Acetaminophen (Hydrocodone Bitartrate/AC 5-325 mg) 1 Tab Tab, 1 TAB PO Q6HP PRN, #20 TAB Prov:ANNMARIE SCRUGGS MD 09/18/24 Tamsulosin HCl (Tamsulosin Hydrochloride) 0.4 Mg Cap, 0.4 MG PO DAILY@BREAKFAST for 30 Days, #30 CAP Prov:ZAIN HILTON MD 08/26/24 Albuterol Sulfate (Albuterol Sulfate Hfa) 108 Mcg/Act Aer, 108 MCG IN Q4HP PRN, #1 AER Prov:JUSTINO YEAGER PAC 06/29/24 Azithromycin (Azithromycin) 500 Mg Tab, 1 TAB PO DAILY for 5 Days, #5 TAB Prov:JUSTINO YEAGER PAC 06/29/24 Hydrocodone-Acetaminophen (Hydrocodone Bitartrate/AC 5-325 mg) 1 Tab Tab, 1 TAB PO BID, #10 TAB Prov:MIHAI SALAZAR 11/24/23 Hydrocodone-Acetaminophen (Hydrocodone Bitartrate/AC 5-325 mg) 1 Tab Tab, 1 TAB PO BID, #14 TAB Prov:MIHAI SALAZAR 10/29/23 Hydrocodone-Acetaminophen (Hydrocodone Bitartrate/AC 5-325 mg) 1 Tab Tab, 1 TAB PO Q8HP PRN, #25 TAB Prov:JUSTINO YEAGER PAC 09/30/23 Ibuprofen (Ibuprofen) 600 Mg Tab, 1 TAB PO TID, #90 TAB 1 Refill Prov:JUSTINO YEAGER PAC 09/30/23 Tamsulosin Hcl (Flomax) 0.4 Mg Cap, 1 CAP PO DAILY for 30 Days, #30 CAP 1 Refill Prov:JUSTINO YEAGER PAC 09/30/23 Benzonatate (Benzonatate) 200 Mg Cap, 1 CAP PO TID, #30 CAP Prov:MIHAI SALAZAR 08/20/23 Acetaminophen (Tylenol Extra Strength) 500 Mg Tab, 500 MG PO QID, #30 TAB Prov:MIHAI SALAZAR 08/20/23 Oseltamivir Phosphate (Tamiflu) 75 Mg Cap, 75 MG PO BID, #10 CAP Prov:MIHAI SALAZAR 08/20/23 Ibuprofen (Ibuprofen) 800 Mg Tab, 1 TAB PO TID, #30 TAB Prov:MIHAI SALAZAR 05/26/23 Ibuprofen (Ibuprofen) 600 Mg Tab, 1 TAB PO Q6HP PRN, #30 TAB Prov:JUSTINO YEAGER PAC 05/07/23 Tramadol Hcl (Tramadol Hcl) 50 Mg Tab, 50 MG PO Q8HP PRN, #10 TAB Prov:JUSTINO YEAGER [facility] 04/20/23 Docusate Sodium (Colace) 100 Mg Cap, 1 CAP PO BID for 5 Days, #10 CAP Prov:IVONNE JEFFERY MD 04/14/23 Hydrocodone-Acetaminophen (Hydrocodone Bitartrate/AC 5-325 mg) 1 Tab Tab, 1 TAB PO Q8HP PRN for 7 Days, #21 TAB Prov:ANNMARIE SCRUGGS MD 04/07/23 Acetaminophen W/ Codeine (Tylenol #4 W/Codeine) 1 Tab Tb, 1 TAB PO Q8HP PRN, #15 TAB Prov:JUSTINO YEAGER PAC 03/27/23 Acetaminophen (Tylenol Extra Strength) 500 Mg Tab, 500 MG PO BIDP PRN for 10 Days, #20 TAB 0 Refills Prov:GRACIELAANASTACIA [employer] SERVICES MANAGER 02/21/23 Hydrocodone-Acetaminophen (Hydrocodone Bitartrate/AC 10-325 mg) 1 Tab Tab, 1 TAB PO Q4HP PRN, #15 TAB 0 Refills Prov:ELIANA GUDINO 01/15/23 Benzonatate (Tessalon Perles) 100 Mg Cap, 1 CAP PO TID PRN, #21 CAP Prov:MARIPOSA NESBITT 12/08/22 Tamsulosin Hcl (Flomax) 0.4 Mg Cap, 1 CAP PO DAILY, #30 CAP 11 Refills Prov:ANNMARIE SCRUGGS MD 12/06/22 Information Source: Patient, Emergency Med Personnel Mode of Arrival: EMS Severity: Moderate Timing: Hours Duration: Since onset Prehospital treatment: None Location: Chest (R) Radiation: Arm (R) Quality: Aching Onset: At Rest Cardiac Risk Factors: Hyperlipidemia PE Risk Factors: None History of: Similar pain in past Vital Signs Vital Signs Date Time Temp Pulse Resp B/P (MAP) Pulse Ox O2 Delivery O2 Flow Rate FiO2 11/13/24 02:24 98.8 78 12 113/68 (83) 93 98.8 11/13/24 01:37 Room Air* 0 21 Physical Exam General: Awake, alert and oriented. No acute distress. Skin: Skin in warm, dry and intact. Appropriate color for ethnicity. HEENT: The head is normocephalic and atraumatic. Conjunctivae are clear without exudates or hemorrhage. Sclera is non-icteric. EOM are intact. No signs of nystagmus. Eyelids are normal in appearance without swelling or lesions. Oral mucosa is pink and moist Neck: The neck is supple with normal range of motion. No JVD. Cardiac: Heart rate and rhythm are normal. No murmurs, gallops, or rubs are auscultated. Respiratory: No signs of respiratory distress. Lung sounds are clear in all lobes bilaterally without rales, ronchi, or wheezes. Abdominal: Abdomen is soft, non-tender without distention. Bowel sounds are present and normoactive in all four quadrants. Extremities: Upper and lower extremities are atraumatic in appearance without deformity or edema. Neurological: The patient is awake, alert and oriented to person, place, and time with normal speech. Speech is clear. There is no facial asymmetry. Psychiatric: Appropriate mood and affect. Good judgement and insight. Review of Systems: REVIEW OF SYSTEMS: No fever, no chills, HEENT: No neck pain, no blurred vision Cardiac: Positive chest pain. No palpitations. Lungs: No shortness of breath, GI: No abdominal pain, no vomiting Musculoskeletal: No joint pain , no back pain Skin: No rash, no wound Neuro: No headache, no dizziness, no syncope And as stated in HPI Past Medical History PAST MEDICAL HISTORY: Arthritis, Cancer, High Lipids, HTN Surgical History: Denies all surgeries Family History Family History: Reviewed,noncontributory to illness, Unknown Social History Smoker: Non-Smoker Alcohol: Denies ETOH Use Drugs: Denies Drug Use Lives In: Homeless EKG EKG : Pulse Rate (adult): 93 [place]: Normal Cardiac Rhythm: NSR Block: None Hypertrophy: LAE, LVH ST: Normal Was a procedure done? Was a procedure done?: No CP Differential Dx Differential Diagnosis: Other Comment Differential diagnoses considered include acute ischemic coronary syndrome, aortic dissection, cardiac tamponade, mediastinitis, pulmonary embolus, pneumothorax, tension pneumothorax, esophageal rupture, coronary artery vasospasm, myocarditis, pericarditis, pneumonia, pulmonary edema, esophageal tear, pancreatitis, aortic stenosis, dilated cardiomyopathy, hypertrophic cardiomyopathy, mitral valve prolapse, malignancy, pleuritis, pneumomediastinum, primary pulmonary hypertension, cholecystitis, esophageal spasm, esophagus, gastritis, GERD, peptic ulcer disease, costochondritis, fibromyalgia, rib fracture, herpes zoster, radicular syndromes, thoracic outlet syndrome, somatization. X-Ray, Labs, Meds, VS Vital Signs Date Time Temp Pulse Resp B/P (MAP) Pulse Ox O2 Delivery O2 Flow Rate FiO2 11/13/24 02:24 98.8 78 12 113/68 (83) 93 98.8 11/13/24 01:37 93 16 96 Room Air* 0 21 11/13/24 01:19 98.8 86 12 78/50 (59) 93 98.8 11/13/24 00:20 93 11/12/24 22:50 84 11/12/24 22:04 98.0 93 16 108/60 (76) 96 98.0 11/12/24 21:57 93 Lab Test 11/13/24 06:19 11/12/24 22:35 Range/Units Lactic Acid Level 1.4 0.4-2.0 mmol/L White Blood Count 8.3 4.4-10.8 10^3/uL Red Blood Count 4.13 L 4.5-5.90 10^6/uL Hemoglobin 13.3 L 13.5-17.5 g/dL Hematocrit 39.8 L 41.0-53.0 % Mean Corpuscular Volume 96.5 80.0-100.0 fL Mean Corpuscular Hemoglobin 32.3 H 28.0-32.0 pg Mean Corpuscular Hemoglobin Concent 33.4 32.0-36.0 g/dL Red Cell Distribution Width 14.0 11.8-14.3 % Platelet Count 247 140-450 10^3/uL Mean Platelet Volume 7.7 6.9-10.8 fL Neutrophils (%) (Auto) 73.3 37.0-80.0 % Lymphocytes (%) (Auto) 18.1 10.0-50.0 % Monocytes (%) (Auto) 6.6 0.0-12.0 % Eosinophils (%) (Auto) 1.1 0.0-7.0 % Basophils (%) (Auto) 0.9 0.0-2.0 % Neutrophils # (Auto) 6.1 1.6-8.6 10 ^3/uL Lymphocytes # (Auto) 1.5 0.4-5.4 10 ^3/uL Monocytes # (Auto) 0.5 0-1.3 10 ^3/uL Eosinophils # (Auto) 0.1 0-0.8 10 ^3/uL Basophils # (Auto) 0.1 0-0.2 10 ^3/uL Nucleated Red Blood Cells 0.1 % Sodium Level 139 136-145 mmol/L Potassium Level 3.7 3.5-5.1 mmol/L Chloride Level 105 98-107 mmol/L Carbon Dioxide Level 25 20-31 mmol/L Anion Gap 9 5-15 Blood Urea Nitrogen 19 9-23 mg/dL Creatinine 1.85 H 0.700-1.30 mg/dL Glomerular Filtration Rate Calc 38 >90 mL/min BUN/Creatinine Ratio 10.3 10.0-20.0 Serum Glucose 102 74-106 mg/dL Calcium Level 10.2 8.7-10.4 mg/dL Total Bilirubin 0.2 0.2-1.0 mg/dL Aspartate Amino Transferase (AST) 17 13-40 U/L Alanine Aminotransferase (ALT) 15 7-40 U/L Alkaline Phosphatase 93 46-116 U/L Troponin I High Sensitivity 14 </=54 ng/L B-Type Natriuretic Peptide 7.51 0-100 pg/mL Total Protein 7.3 5.7-8.2 g/dL Albumin 4.2 3.2-4.8 g/dL Current Medications Medications (Trade) Dose Ordered Sig/Madiha Route Start Time Stop Time Status Last Admin Acetaminophen (Tylenol Tablet) 650 mg ONCE ONCE PO 11/13/24 06:15 11/13/24 06:16 DC 11/13/24 06:18 Time of 1ST Reevaluation: 22:35 Reevaluation 1ST: Unchanged Patient Education/Counseling: Diagnosis, Treatment, Other (Need for admission) Family Education/Counseling: No Family Present Departure 1 Departure Time of Disposition: 01:00 Impression: Primary Impression: Chest pain Additional Impression: Acute kidney injury Disposition: ADMITTED INPATIENT Condition: Stable Comments Patient admitted for further treatment, evaluation and monitoring. Critical Care Note Critical Care Time?: No Stability Stability form required: No Heart Score Heart Score: Heart Score Response (Comments) Value History Moderate Suspicious 1 EKG Normal 0 Age >65 2 Risk Factors 1 or 2 risk factors 1 Troponin Normal limit 0 Total 4 I personally scribed for RODDY GUIDRY MD ([email or web address]) on 11/12/24 at 22:36. Electronically submitted by Teofilo Colon ([email or web address]). I personally scribed for RODDY GUIDRY MD ([email or web address]) on 11/13/24 at 00:20. Electronically submitted by Teofilo Colon ([email or web address]). RODDY GUIDRY MD Nov 12, 2024 22:36
--- NOTE | 2024-11-12 22:56 | DVH ---
CHEST RADIOGRAPH Indication: cp Technique: Single frontal view of the chest was obtained Comparison: XY CHEST PORTABLE on DOS: 10/26/24, XY CHEST XRAY 1 VIEW on DOS: 10/13/24, XY CHEST PORTABLE on DOS: 06/29/24 FINDINGS: Heart size is normal there are no infiltrates or effusions. Peripheral markings are suggestive mild c hronic changes. Trachea is midline shay is sharp mainstem bronchi are well aerated. IMPRESSION: 1. No acute findings. There may be minimal chronic changes in the lung bases.
[2024-11-12 23:08] LABS: Basophils # (auto) 0.1 10 ^3/uL (0-0.2); Basophils % (auto) 0.9 % (0.0-2.0); Eosinophils # (auto) 0.1 10 ^3/uL (0-0.8); Eosinophils % (auto) 1.1 % (0.0-7.0); Hematocrit 39.8 % (41.0-53.0); Hemoglobin 13.3 g/dL (13.5-17.5); Lymphocytes # (auto) 1.5 10 ^3/uL (0.4-5.4); Lymphocytes % (auto) 18.1 % (10.0-50.0); Mean Corpuscular Hemoglobin 32.3 pg (28.0-32.0); Mean Corpuscular Hgb Conc. 33.4 g/dL (32.0-36.0); Mean Corpuscular Volume 96.5 fL (80.0-100.0); Monocytes # (auto) 0.5 10 ^3/uL (0-1.3); Monocytes % (auto) 6.6 % (0.0-12.0); Neutrophils # (auto) 6.1 10 ^3/uL (1.6-8.6); Neutrophils % (auto) 73.3 % (37.0-80.0); Nucleated Red Blood Cells % 0.1 %; Platelet Count (auto) 247 10^3/uL (140-450); Red Blood Cells 4.13 10^6/uL (4.5-5.90); White Blood Cell 8.3 10^3/uL (4.4-10.8)
[2024-11-12 23:18] LABS: Alanine Aminotransferase 15 U/L (7-40); Albumin 4.2 g/dL (3.2-4.8); Alkaline Phosphatase 93 U/L (46-116); Anion Gap 9 (5-15); Aspartate Aminotransferase 17 U/L (13-40); BUN/Creatinine Ratio 10.3 (10.0-20.0); Blood Urea Nitrogen 19 mg/dL (9-23); Calcium 10.2 mg/dL (8.7-10.4); Carbon Dioxide 25 mmol/L (20-31); Chloride 105 mmol/L (98-107); Glucose 102 mg/dL (74-106); Potassium 3.7 mmol/L (3.5-5.1); Sodium 139 mmol/L (136-145); Total Protein 7.3 g/dL (5.7-8.2)
[2024-11-12 23:22] LABS: Bilirubin, Total 0.2 mg/dL (0.2-1.0)
[2024-11-13] MEDS: SODIUM CHLORIDE 0.9% 1,000 ML IV ONE ×3 (01:00→06:18)
[2024-11-13 01:37] VITALS: PULSE 93; RESP 16; O2SAT 96
[2024-11-13 02:24] VITALS: BP 113/68; PULSE 78; RESP 12; TEMP 98.8; O2SAT 93
--- NOTE | 2024-11-13 05:39 | ECG ---
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
--- NOTE | 2024-11-13 05:39 | ECG ---
[facility] Test Date: 2024-11-12 Test Time: 21:53:53 Pat Name: ADILENE BAUM Department: ED Room: Gender: M Emergency Services Director: ROMAN : 1950 Requested By: RODDY GUIDRY Order Number: [id number] Reading MD: Gio Ratliff Measurements Intervals [place] Rate: 93 P: 1 ID: [id number] QRS: -65 QRSD: 98 T: 51 QT: 356 QTc: 443 Interpretive Statements Sinus rhythm Probable left atrial enlargement RSR' in V1 or V2, right VCD or RVH Left ventricular hypertrophy Inferior infarct, old Anterior Q waves, possibly due to LVH Electronically Signed On 11-15-2024 20:42:12 PDT by Gio Ratliff Please click the below link to view image of tracing.
[2024-11-13] MEDS: ACETAMINOPHEN 325 MG TAB PO ONE (06:18)
== END 2024-11-13 09:16 | disposition left against medical advice (07) ==
LOC: EDBD 21:57 → ER 21:57
DX: R07.89 Other chest pain (principal); I12.9 Hypertensive chronic kidney disease with stage 1 through stage 4 chronic kidney disease, or unspecified chronic kidney disease; N17.9 Acute kidney failure, unspecified; E78.5 Hyperlipidemia, unspecified; M19.90 Unspecified osteoarthritis, unspecified site; Z59.00 Homelessness unspecified; Z79.1 Long term (current) use of non-steroidal anti-inflammatories (NSAID); Z88.6 Allergy status to analgesic agent; Z88.0 Allergy status to penicillin; Z79.899 Other long term (current) drug therapy
CPT/HCPCS: 36415; 71045; 80053; 83605; 83880; 84484; 85025; 93005; 96360; 96361; 99285; J7030

== ENCOUNTER 2024-11-14 23:39 | Inpatient (IN) | payer OTHER, MEDICAID ==
[~2024-11-14] VITALS: Ht 172.7 cm; Wt 93.5 kg
--- NOTE | 2024-11-15 00:30 | ED.PDOC ---
HPI (NEURO) HPI Comments Past Medical History Past Medical History PAST MEDICAL HISTORY: Arthritis, Cancer, High Lipids, HTN, chronic pain syndrome, chronic low back pain, inguinal hernia, osteoarthritis, prostate cancer Surgical History: Denies all surgeries Social History Smoker: Non-Smoker Alcohol: Denies ETOH Use Drugs: Denies Drug Use Lives In: Homeless HPI: Poor Historian. 74-year-old male homeless brought in by ambulance for evaluation of bilateral leg weakness right greater than left that started according to the patient two days ago. Patient was in his discharged from the hospital with the same symptoms he said when he was leaving he was dragging his feet but he was still discharged from the hospital. He was able to go to a restaurant to has some meal and he is stuck around their hoping to improve. Patient had a mechanical fall because he was unable to bear weight on his legs that gave out on him yesterday. Today he called 911 because it did not improve. REVIEW OF SYSTEMS: CONSTITUTIONAL: Denies acute: fever, diaphoresis, chills, generalized weakness. HEAD: Denies acute: headache, photophobia Eyes: Denies acute: Double vision, vision loss, eye pain, eye discharge. EARS: Denies acute: tinnitus, hearing loss, ear discharge, ear pain, THROAT: Denies acute: sore throat, swelling, difficulty swallowing , pain with swallowing, change in voice. NECK: Denies acute: neck pain, neck swelling, stiff neck. HEART: Denies acute : chest pain, palpitations, LUNGS: Denies acute: SOB, wheezing, cough, hemoptysis ABDOMEN: Denies acute: abdominal pain, Nausea, Vomiting, diarrhea, melena , hematemesis, hematochezia SKIN: Denies acute: rash, redness, lesions, itchiness. EXTREMITIES: Denies acute: calf pain, numbness, tingling, weakness, denies pain in extremity. Denies acute: Low back pain. Neuro: Denies acute: , motor or sensory focal neurological deficit, tremors, seizure like activity, confusion, dizziness, change in mental status, loss of bowel or bladder function, cauda equina like symptoms. : Denies acute: dysuria, hematuria, flank pain, increase in urinary frequency. PSYCH: Denies acute: hallucination, suicidal ideation, homicidal ideation. PHYSICAL EXAM: General: ----mild----acute distress, awake and alert. Head: normocephalic, atraumatic. Neck: supple, trachea is midline, no swelling. Throat: Normal phonation. Eyes:, no erythema, no purulent discharge, no proptosis, no icterus. Heart: regular rate, regular rhythm, no significant murmur appreciated. Lungs: no apparent respiratory distress, Able to speak in full sentences. No wheezing, no rhonchi, no crackles. No stridors Clear to auscultation bilaterally. Abdomen: non tender to palpation, non distended, soft, no guarding, no rebound, + bowel sounds. Neuro: Awake, Alert, oriented to name, self, situation, follows commands GCS=15. Speech is normal. Skin: no petechia, no purpura, no cyanosis, non-pale, not jaundice. Lower extremities: --trace bilateral- Pitting edema no deformity, no focal swelling, no calf TTP. Makes eye contact. moves all four extremities. Face: no apparent facial droop. Stroke: No pronator drift. Symmetrical cutter machine muscle strength b/l PERRLA, EOM-I CN 2-12 are grossly intact, No nystagmus. ED COURSE: Chief Complaint: Lower Extremity Time Seen by MD: 00:03 Primary Care Provider: DENIES Reviewed Notes: Nurses Notes, Allergies Information Source: Patient Mode of Arrival: Ambulatory Past Medical History PAST MEDICAL HISTORY: Arthritis, Cancer, High Lipids, HTN Surgical History: Denies all surgeries Family History Family History: Reviewed,noncontributory to illness, Unknown Social History Smoker: Non-Smoker Alcohol: Denies ETOH Use Drugs: Denies Drug Use Lives In: Homeless Was a procedure done? Was a procedure done?: No Differential Diagnosis (SZ) CVA: Other (Stroke: DDX include TIA, TGA, CVA, intracranial bleed/mass/infection, cerebellar ischemia/infarct, carotid stenosis, lacunar infarct, vertebral/carotid artery dissection,, vertebrobasillary insufficiency, BPV, encephalopathy, electrolyte abnormality, thyroid disease, hydrocephalus, Gordon palsy, multiple sclerosis, hypoglycemia, drug toxicity, cardiac arrhythmia, todds paralysis, seizure.) X-Ray, Labs, Meds, VS Vital Signs Date Time Temp Pulse Resp B/P (MAP) Pulse Ox O2 Delivery O2 Flow Rate FiO2 11/15/24 16:43 84 16 120/68 (85) 97 11/15/24 12:58 78 16 96 Room Air 11/15/24 12:58 98.7 78 16 133/91 (105) 96 98.7 11/15/24 10:17 88 16 195/101 (132) 100 11/15/24 07:04 98.4 76 17 139/91 (107) 97 98.4 11/15/24 03:35 85 13 97 Room Air* 0 21 11/15/24 03:35 98.1 85 13 130/66 (87) 97 98.1 11/14/24 23:39 98.3 104 16 100/65 (77) 96 98.3 Lab Test 11/15/24 03:30 11/15/24 03:16 11/15/24 01:19 11/15/24 00:25 Range/Units Phosphorus Level 3.9 2.4-5.1 mg/dL Magnesium Level 2.3 2.1 1.6-2.6 mg/dL Troponin I High Sensitivity 65 *H 60 *H 59 *H </=54 ng/L Triglycerides Level 78 < 150 mg/dL Cholesterol Level 273 H < 200 mg/dL LDL Cholesterol 212 H < 100 mg/dL HDL Cholesterol 50 40-59 mg/dL Thyroid Stimulating Hormone (TSH) 1.29 0.55-4.78 uIU/mL Urine Color Light-yellow Yellow Urine Clarity Clear Clear Urine pH 5.0 5.0-9.0 Urine Specific [place] 1.014 1.001-1.035 Urine Protein Negative Negative Urine Ketones Negative Negative Urine Blood Negative Negative /uL Urine Nitrite Negative Negative Urine Bilirubin Negative Negative Urine Urobilinogen Normal Negative mg/dL Urine Leukocyte Esterase Negative Negative /uL Urine RBC 1 0 - 3 /hpf Urine Microscopic WBC 1 0-3 /HPF Urine Squamous Epithelial Cells Few <5 /hpf Urine Uric Acid Crystals Few None Seen /hpf Urine Bacteria None seen None Seen /hpf Urine Mucus Few None Seen Urine Glucose Normal Normal mg/dL White Blood Count 8.6 4.4-10.8 10^3/uL Red Blood Count 3.95 L 4.5-5.90 10^6/uL Hemoglobin 12.8 L 13.5-17.5 g/dL Hematocrit 37.7 L 41.0-53.0 % Mean Corpuscular Volume 95.5 80.0-100.0 fL Mean Corpuscular Hemoglobin 32.4 H 28.0-32.0 pg Mean Corpuscular Hemoglobin Concent 34.0 32.0-36.0 g/dL Red Cell Distribution Width 13.9 11.8-14.3 % Platelet Count 229 140-450 10^3/uL Mean Platelet Volume 7.1 6.9-10.8 fL Neutrophils (%) (Auto) 79.3 37.0-80.0 % Lymphocytes (%) (Auto) 12.7 10.0-50.0 % Monocytes (%) (Auto) 6.7 0.0-12.0 % Eosinophils (%) (Auto) 0.6 0.0-7.0 % Basophils (%) (Auto) 0.7 0.0-2.0 % Neutrophils # (Auto) 6.8 1.6-8.6 10 ^3/uL Lymphocytes # (Auto) 1.1 0.4-5.4 10 ^3/uL Monocytes # (Auto) 0.6 0-1.3 10 ^3/uL Eosinophils # (Auto) 0.1 0-0.8 10 ^3/uL Basophils # (Auto) 0.1 0-0.2 10 ^3/uL Nucleated Red Blood Cells 0.0 % Prothrombin Time 11.5 9.3-11.8 sec Prothrombin Time INR 1.09 0.9-1.15 Activated Partial Thromboplast Time 27.4 24.5-34.5 SEC Sodium Level 141 136-145 mmol/L Potassium Level 3.6 3.5-5.1 mmol/L Chloride Level 108 H 98-107 mmol/L Carbon Dioxide Level 23 20-31 mmol/L Anion Gap 10 5-15 Blood Urea Nitrogen 14 9-23 mg/dL Creatinine 1.12 0.700-1.30 mg/dL Glomerular Filtration Rate Calc 69 >90 mL/min BUN/Creatinine Ratio 12.5 10.0-20.0 Serum Glucose 126 H 74-106 mg/dL Hemoglobin A1c 5.0 <5.7 % A1C Lactic Acid Level 1.1 0.4-2.0 mmol/L Calcium Level 10.2 8.7-10.4 mg/dL Total Bilirubin 0.6 0.2-1.0 mg/dL Aspartate Amino Transferase (AST) 19 13-40 U/L Alanine Aminotransferase (ALT) 17 7-40 U/L Alkaline Phosphatase 63 46-116 U/L Creatine Kinase 418 H 46-171 U/L B-Type Natriuretic Peptide 18.67 0-100 pg/mL Total Protein 7.2 5.7-8.2 g/dL Albumin 4.2 3.2-4.8 g/dL Vitamin D 25-Hydroxy 13.6 L 30.0-100 ng/mL [place] [id number] Ph: [phone] DIAGNOSTIC IMAGING Diagnostic Imaging Report : [id number] Signed PATIENT: ADILENE BAUMT: [id number] UNIT: [id number] : 1950 LOC: ER ROOM / BED: / AGE / SEX: 74 / M ADM STATUS: REG ER SERVICE [id number] ORDERING PHYSICIAN: ROBERTO FOX DO PROCEDURE(s): HWOCT - HEAD WITHOUT CONTRAST REASON: leg weakness ORDER NUMBER(s): [id number], ACCESSION NUMBER(s): [id number] CLINICAL HISTORY: leg weakness TECHNIQUE: Helical imaging carried out from skull base to vertex without intravenous contrast. This exam was performed according to our departmental dose optimization program. Up-to-date CT equipment and radiation dose reduction techniques are utilized as appropriate. CTDIVol: 59.19+ 0.07 mGy DLP: 1166.45 mGy-cm WID: COMPARISON: None FINDINGS: Mild cerebral volume loss with concordant prominence of the subarachnoid spaces and ventricles. 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 There is mild patchy low attenuation in the cerebral white matter consistent with nonspecific white matter disease. Incidental bilateral basal ganglia calcifications. There is no midline shift or mass effect. The soto white matter interfaces are otherwise maintained. The basal cisterns are patent. There is no evidence of acute intracranial hemorrhage or extra-axial fluid collection. The mastoid air cells and visualized paranasal sinuses are well-aerated. IMPRESSION: 1. No acute intracranial abnormality. 2. Mild cerebral volume loss and mild chronic microvascular ischemic change. 3. 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 ATED BY: LIANA PACHECO MD DICTATED DATE/TIME: 11/15/24105 SIGNED BY: LIANA PACHECO MD SIGNED DATE/TIME: 11/15/24105 CC: Time of 1ST Reevaluation: 00:00 Reevaluation 1ST: Unchanged Patient Education/Counseling: Diagnosis, Treatment Family Education/Counseling: No Family Present Comments Patient presented with the above HPI.---leg weakness possible stroke---workup was initiated. patient was found with the above mentioned diagnosis. the following medications were ordered: please refer to order lists of meds and tests obtained by myself Dr. Fox. Patient ED course and VS have been stabilized. Patient has been reassessed in the ED and remained in a stable condition. Pertinent incidental findings were discussed with the patient and/or family. Patient/family voices understanding and is agreeable with plan. Patient has been observed in the ED adequate length of time to insure improvement/stability. Escalation of care considered: Consideration of escalation to observation or admission Patient was ADMITTED to the medicine team for further evaluation and treatment of their presentation. Patient was later seen ambulating independently in the ED. All the reports of any imaging studies that were ordered by myself were reviewed by myself. Departure 1 Departure Time of Disposition: 00:48 Impression: Primary Impression: Leg weakness Additional Impressions: Unable to ambulate Stroke-like symptoms Elevated troponin Disposition: ADMITTED INPATIENT Admit to: [facility] Condition: Guarded Discharged With: Self Critical Care Note Critical Care Time?: Yes (45 min-critical care time only) Heart Score Heart Score: Heart Score Response (Comments) Value History Slightly Suspicious 0 EKG Normal 0 Age >65 2 Risk Factors >3 or Hx ASHD 2 Troponin 1-2 x's Normal limit 1 Total 5 I personally scribed for ROBERTO FOX DO ([email or web address]) on 11/15/24 at 15:44. Electronically submitted by Eveline Mascorro ([email or web address]). I personally scribed for ROBERTO FOX DO ([email or web address]) on 11/15/24 at 15:45. Electronically submitted by Eveline Mascorro ([email or web address]). ROBERTO FOX DO Nov 15, 2024 00:30
[2024-11-15 00:41] LABS: Basophils # (auto) 0.1 10 ^3/uL (0-0.2); Basophils % (auto) 0.7 % (0.0-2.0); Eosinophils # (auto) 0.1 10 ^3/uL (0-0.8); Eosinophils % (auto) 0.6 % (0.0-7.0); Hematocrit 37.7 % (41.0-53.0); Hemoglobin 12.8 g/dL (13.5-17.5); Lymphocytes # (auto) 1.1 10 ^3/uL (0.4-5.4); Lymphocytes % (auto) 12.7 % (10.0-50.0); Mean Corpuscular Hemoglobin 32.4 pg (28.0-32.0); Mean Corpuscular Volume 95.5 fL (80.0-100.0); Monocytes # (auto) 0.6 10 ^3/uL (0-1.3); Monocytes % (auto) 6.7 % (0.0-12.0); Neutrophils # (auto) 6.8 10 ^3/uL (1.6-8.6); Neutrophils % (auto) 79.3 % (37.0-80.0); Platelet Count (auto) 229 10^3/uL (140-450); Red Blood Cells 3.95 10^6/uL (4.5-5.90); Red Cell Distribution Width 13.9 % (11.8-14.3); White Blood Cell 8.6 10^3/uL (4.4-10.8)
[2024-11-15 01:00] LABS: Alanine Aminotransferase 17 U/L (7-40); Albumin 4.2 g/dL (3.2-4.8); Alkaline Phosphatase 63 U/L (46-116); Anion Gap 10 (5-15); Aspartate Aminotransferase 19 U/L (13-40); BUN/Creatinine Ratio 12.5 (10.0-20.0); Blood Urea Nitrogen 14 mg/dL (9-23); Calcium 10.2 mg/dL (8.7-10.4); Carbon Dioxide 23 mmol/L (20-31); Magnesium 2.1 mg/dL (1.6-2.6); Potassium 3.6 mmol/L (3.5-5.1); Sodium 141 mmol/L (136-145); Total Protein 7.2 g/dL (5.7-8.2)
[2024-11-15 01:01] LABS: Bilirubin, Total 0.6 mg/dL (0.2-1.0)
[2024-11-15 01:03] LABS: Chloride 108 mmol/L (98-107); Creatine Kinase IFCC 418 U/L (46-171); Glucose 126 mg/dL (74-106)
--- NOTE | 2024-11-15 01:09 | DVH ---
CLINICAL HISTORY: leg weakness TECHNIQUE: Helical imaging carried out from skull base to vertex without intravenous contrast. This e xam was performed according to our departmental dose optimization program. Up-to-date CT equipment an d radiation dose reduction techniques are utilized as appropriate. CTDIVol: 59.19+ 0.07 mGy DLP: 1166.45 mGy-cm WID: COMPARISON: None FINDINGS: Mild cerebral volume loss with concordant prominence of the subarachnoid spaces and ventricles. 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 There is mild patchy low attenuation i n the cerebral white matter consistent with nonspecific white matter disease. Incidental bilateral ba allan ganglia calcifications. There is no midline shift or mass effect. The soto white matter interfaces are otherwise maintained. The basal cisterns are patent. There is no evidence of acute intracranial hemorrhage or extra-axial fluid collection. The mastoid air cells and visualized paranasal sinuses are well-aerated. IMPRESSION: 1. No acute intracranial abnormality. 2. Mild cerebral volume loss and mild chronic microvascular ischemic change. 3. 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
[2024-11-15 01:34] LABS: INR 1.09 (0.9-1.15); Partial Thromboplastin Time 27.4 SEC (24.5-34.5); Prothrombin Time 11.5 sec (9.3-11.8)
[2024-11-15] MEDS: ASPirin-EC 325mg tab PO ONE (03:24)
[2024-11-15 03:28] LABS: Urine Bacteria None Seen /hpf (None Seen)
[2024-11-15 03:35] VITALS: PULSE 85; RESP 13; O2SAT 97
[2024-11-15 03:37] LABS: Urine Blood Negative /uL (Negative); Urine Clarity Clear (Clear); Urine Color Light-Yellow (Yellow); Urine Mucus FEW (None Seen); Urine Protein, UAD Negative (Negative); Urine Specific Gravity 1.014 (1.001-1.035); Urine Squamous Epithelial Cell FEW /hpf (<5); Urine Urobilinogen Normal (Negative); Urine WBC 1 /HPF (0-3)
[2024-11-15] MEDS: SODIUM CHLORIDE 0.9% 1,000 ML IV ONE (03:38)
--- NOTE | 2024-11-15 23:39 | DVHHPRES ---
History of Present Illness Resident Creating Document: HARRISON JAY RESIDENT History of Present Illness Brent Hawkins is a 74-year-old male patient who presents to the ED with chief complaint of bilateral lower limb weakness (right greater than left) which started approximately 2-3 weeks ago, associated with multiple episodes of mechanical fall with head trauma, during one episode after falling he lost consciousness for an unknown amount of time. He was evaluated in the ED approximately one week ago with the same complaints, with discharge with no improvement of symptoms. Denies altered bowel or urinary symptoms, palpitation, syncope, chest pain, dyspnea, nausea, vomiting, diarrhea, sick contacts, recent travel, bleeding and other motor or sensory deficits. Past medical history: Hypertension, dyslipidemia, chronic lower back pain, osteoarthritis, prostate cancer (no surgeries nor chemotherapy), left inguinal hernia (no surgical treatment), anxiety Surgical history: Denies Family history: Sister recently had a stroke. Other sister from AIDS- related cancer Social history: Currently lives with a friend but he was kicked out of his house (he has never been homeless yet) as an older sister the lives in [facility] no younger sister that lives in [place]. Denies current tobacco, alcohol and other drug abuse Allergies: Denies Home medication: Tamsulosin, Lipitor and diazepam Patient seen and examined at bedside. Currently has no new complaints. Past Medical History Per HPI Past Surgical History Per HPI Family History Per HPI Past Social History Per HPI Review of Systems Review of Systems Per HPI Allergies: Coded Allergies: Ibuprofen (Verified Allergy, Unknown, 09/30/23) Penicillins (Verified Allergy, Unknown, 01/26/23) Exam Vital Signs Vital Signs Date Time Temp Pulse Resp B/P (MAP) Pulse Ox O2 Delivery O2 Flow Rate FiO2 11/15/24 16:43 84 16 120/68 (85) 97 11/15/24 12:58 Room Air 11/15/24 12:58 98.7 98.7 11/15/24 03:35 0 21 Exam Patient lying in bed, in no acute distress General: Lucid, afebrile, mucosae are moist Cardiovascular: Normal S1 and S2. No murmurs, gallops or rubs Respiratory: Normal ventilation mechanics. Clear lung sounds on auscultation Abdomen: Soft, nontender, no organomegaly, normal bowel sounds MSK/skin: Mobilizes 4 limbs. Presents decreased strength in bilateral legs, predominantly right side. Skin is dry and warm Neurological: Oriented in 3 spheres. Bilateral lower limb weakness predominant ly right side, no other motor no sensitive deficits. Pupils are isocoric and reactive Labs/Xrays Labs Test 11/15/24 03:30 11/15/24 03:16 11/15/24 00:25 Range/Units Troponin I High Sensitivity 65 *H </=54 ng/L Urine Color Light-yellow Yellow Urine Clarity Clear Clear Urine pH 5.0 5.0-9.0 Urine Specific [place] 1.014 1.001-1.035 Urine Protein Negative Negative Urine Ketones Negative Negative Urine Blood Negative Negative /uL Urine Nitrite Negative Negative Urine Bilirubin Negative Negative Urine Urobilinogen Normal Negative mg/dL Urine Leukocyte Esterase Negative Negative /uL Urine RBC 1 0 - 3 /hpf Urine Microscopic WBC 1 0-3 /HPF Urine Squamous Epithelial Cells Few <5 /hpf Urine Uric Acid Crystals Few None Seen /hpf Urine Bacteria None seen None Seen /hpf Urine Mucus Few None Seen Urine Glucose Normal Normal mg/dL White Blood Count 8.6 4.4-10.8 10^3/uL Red Blood Count 3.95 L 4.5-5.90 10^6/uL Hemoglobin 12.8 L 13.5-17.5 g/dL Hematocrit 37.7 L 41.0-53.0 % Mean Corpuscular Volume 95.5 80.0-100.0 fL Mean Corpuscular Hemoglobin 32.4 H 28.0-32.0 pg Mean Corpuscular Hemoglobin Concent 34.0 32.0-36.0 g/dL Red Cell Distribution Width 13.9 11.8-14.3 % Platelet Count 229 140-450 10^3/uL Mean Platelet Volume 7.1 6.9-10.8 fL Neutrophils (%) (Auto) 79.3 37.0-80.0 % Lymphocytes (%) (Auto) 12.7 10.0-50.0 % Monocytes (%) (Auto) 6.7 0.0-12.0 % Eosinophils (%) (Auto) 0.6 0.0-7.0 % Basophils (%) (Auto) 0.7 0.0-2.0 % Neutrophils # (Auto) 6.8 1.6-8.6 10 ^3/uL Lymphocytes # (Auto) 1.1 0.4-5.4 10 ^3/uL Monocytes # (Auto) 0.6 0-1.3 10 ^3/uL Eosinophils # (Auto) 0.1 0-0.8 10 ^3/uL Basophils # (Auto) 0.1 0-0.2 10 ^3/uL Nucleated Red Blood Cells 0.0 % Prothrombin Time 11.5 9.3-11.8 sec Prothrombin Time INR 1.09 0.9-1.15 Activated Partial Thromboplast Time 27.4 24.5-34.5 SEC Sodium Level 141 136-145 mmol/L Potassium Level 3.6 3.5-5.1 mmol/L Chloride Level 108 H 98-107 mmol/L Carbon Dioxide Level 23 20-31 mmol/L Anion Gap 10 5-15 Blood Urea Nitrogen 14 9-23 mg/dL Creatinine 1.12 0.700-1.30 mg/dL Glomerular Filtration Rate Calc 69 >90 mL/min BUN/Creatinine Ratio 12.5 10.0-20.0 Serum Glucose 126 H 74-106 mg/dL Lactic Acid Level 1.1 0.4-2.0 mmol/L Calcium Level 10.2 8.7-10.4 mg/dL Magnesium Level 2.1 1.6-2.6 mg/dL Total Bilirubin 0.6 0.2-1.0 mg/dL Aspartate Amino Transferase (AST) 19 13-40 U/L Alanine Aminotransferase (ALT) 17 7-40 U/L Alkaline Phosphatase 63 46-116 U/L Creatine Kinase 418 H 46-171 U/L B-Type Natriuretic Peptide 18.67 0-100 pg/mL Total Protein 7.2 5.7-8.2 g/dL Albumin 4.2 3.2-4.8 g/dL Assessment/Plan Assessment/Plan Assessment: Rule out CVA Hypertensive urgency NSTEMI probable type 2 Multiple mechanical falls Vitamin-D deficiency Normocytic anemia Elevated CPK Dyslipidemia Prostate cancer Osteoarthritis Chronic low back pain Left inguinal hernia Plan: Completed head CT which showed no acute intracranial pathology. Does evidence chronic microvascular ischemic changes, mild cerebral volume loss and small chronic infarcts in high left frontal and parietal lobes. Ordered head MRI and Neurological consult. Optimizing medical therapy for hypertension. Patient was started on aspirin, did not start atorvastatin due to elevated CPK (cause of elevated CPK most likely secondary to mechanical falls) Patient was living in a friend's house was renting, but he is now homeless. human services assistant was consulted for home safety evaluation Replenish vitamin-D Was admitted for telemetry to evaluate cardiac arrhythmias Goals of care discussed with patient for over 18 minutes: Full code status (patient was never in hospice) Discussed plan with Dr. Sanford, patient and nurses: Head CT completed with no acute intracranial pathology, ordered brain MRI and Neurology consult. Consulted social psychologist for home safety evaluation. Plan discussed with: Patient, Other (Nurses) Date of Service: Nov 15, 2024 Billing Provider: JOHAN SANFORD MD Common Visit Codes: 36078-CEQBVLP INP/OBS CARE (HIGH) Secondary Visit Codes: 80605-[id number] CARE PLAN 30 MINUTES HARRISON JAY RESIDENT Nov 15, 2024 23:39 JOHAN SANFORD MD Nov 16, 2024 19:34
[2024-11-15 23:45] VITALS: PULSE 81; RESP 19; O2SAT 97
[2024-11-15] MEDS ORDERED: ONDANSETRON HCL 4 MG/2 ML VIAL IV PRN (23:45)
[2024-11-16] VITALS (8 sets, daily range): BP systolic 114–146; BP diastolic 60–92; PULSE 71–91; RESP 15–18; TEMP 97.8–98.4; O2SAT 64–98
[2024-11-16 00:09] LABS: Magnesium 2.3 mg/dL (1.6-2.6)
[2024-11-16 00:10] LABS: Phosphorus 3.9 mg/dL (2.4-5.1)
[2024-11-16 02:51] LABS: Basophils # (auto) 0.1 10 ^3/uL (0-0.2); Basophils % (auto) 0.9 % (0.0-2.0); Eosinophils # (auto) 0.1 10 ^3/uL (0-0.8); Eosinophils % (auto) 1.7 % (0.0-7.0); Hematocrit 35.5 % (41.0-53.0); Hemoglobin 12.1 g/dL (13.5-17.5); Lymphocytes # (auto) 1.5 10 ^3/uL (0.4-5.4); Lymphocytes % (auto) 25.1 % (10.0-50.0); Mean Corpuscular Hemoglobin 32.6 pg (28.0-32.0); Mean Corpuscular Hgb Conc. 34.1 g/dL (32.0-36.0); Mean Corpuscular Volume 95.6 fL (80.0-100.0); Monocytes # (auto) 0.4 10 ^3/uL (0-1.3); Monocytes % (auto) 5.9 % (0.0-12.0); Neutrophils % (auto) 66.4 % (37.0-80.0); Nucleated Red Blood Cells % 0.1 %; Platelet Count (auto) 225 10^3/uL (140-450); Red Blood Cells 3.71 10^6/uL (4.5-5.90); Red Cell Distribution Width 13.9 % (11.8-14.3); White Blood Cell 6.1 10^3/uL (4.4-10.8)
[2024-11-16 03:00] LABS: Magnesium 1.9 mg/dL (1.6-2.6)
[2024-11-16 03:01] LABS: Phosphorus 2.7 mg/dL (2.4-5.1)
[2024-11-16 05:32] LABS: Basophils # (auto) 0 10 ^3/uL (0-0.2); Basophils % (auto) 0.7 % (0.0-2.0); Eosinophils # (auto) 0.1 10 ^3/uL (0-0.8); Eosinophils % (auto) 1.7 % (0.0-7.0); Hematocrit 36.8 % (41.0-53.0); Hemoglobin 12.3 g/dL (13.5-17.5); Lymphocytes # (auto) 1.5 10 ^3/uL (0.4-5.4); Lymphocytes % (auto) 26.1 % (10.0-50.0); Mean Corpuscular Hemoglobin 31.6 pg (28.0-32.0); Mean Corpuscular Hgb Conc. 33.3 g/dL (32.0-36.0); Mean Corpuscular Volume 94.8 fL (80.0-100.0); Monocytes # (auto) 0.4 10 ^3/uL (0-1.3); Monocytes % (auto) 7.5 % (0.0-12.0); Neutrophils # (auto) 3.6 10 ^3/uL (1.6-8.6); Nucleated Red Blood Cells % 0.1 %; Platelet Count (auto) 225 10^3/uL (140-450); Red Blood Cells 3.89 10^6/uL (4.5-5.90); Red Cell Distribution Width 13.7 % (11.8-14.3); White Blood Cell 5.6 10^3/uL (4.4-10.8)
[2024-11-16 05:59] LABS: % Iron Saturation 23.2 % (20-55)
[2024-11-16 06:03] LABS: Alanine Aminotransferase 15 U/L (7-40); Albumin 3.8 g/dL (3.2-4.8); Alkaline Phosphatase 56 U/L (46-116); Anion Gap 9 (5-15); Aspartate Aminotransferase 15 U/L (13-40); BUN/Creatinine Ratio 14.9 (10.0-20.0); Bilirubin, Total 0.6 mg/dL (0.2-1.0); Blood Urea Nitrogen 15 mg/dL (9-23); Carbon Dioxide 24 mmol/L (20-31); Potassium 3.9 mmol/L (3.5-5.1); Sodium 140 mmol/L (136-145); Total Protein 6.6 g/dL (5.7-8.2)
[2024-11-16 06:08] LABS: Chloride 107 mmol/L (98-107); Glucose 107 mg/dL (74-106)
[2024-11-16 06:15] LABS: Calcium 9.4 mg/dL (8.7-10.4)
--- NOTE | 2024-11-16 06:21 | ECG ---
[facility] Test Date: 2024-11-16 Test Time: 06:19:19 Pat Name: ADILENE BAUM Department: Room: 0295 Gender: M Internet Assessor: NYDIA : 1950 Requested By: HARRISON JAY Order Number: [id number] Reading MD: Gio Ratliff Measurements Intervals [place] Rate: 68 P: 3 OR: 196 QRS: -45 QRSD: 106 T: 32 QT: 396 QTc: 422 Interpretive Statements Sinus rhythm Probable left atrial enlargement RSR' in V1 or V2, right VCD or RVH Inferior infarct, old Minimal ST elevation, anterior leads Electronically Signed On 11-21-2024 20:29:31 PDT by iGo Ratliff Please click the below link to view image of tracing.
[2024-11-16] MEDS ORDERED: ATOR20TA PO (07:11)
[2024-11-16] MEDS ORDERED: DIPH25CA66 PO (07:11)
[2024-11-16] MEDS ORDERED: DIAZ10TA3 PO (07:11)
[2024-11-16 07:43] LABS: Folate (Folic Acid) 19.5 ng/mL (>5.38)
--- NOTE | 2024-11-16 09:06 | DVH ---
MRI BRAIN HEAD WO CONTRAST INDICATION: Rule out CVA : 74 old Male Rule out CVA EXAM DATE: 11/16/2024 08:18 AM COMPARISON: 11/15/24 PROCEDURE: Using a 1.5 Sierra scanner, multisequence multiplanar imaging of the brain was obtained. FINDINGS: Left occipital lobe encephalomalcia. The brainshows normal morphology and signal character istics. No abnormal , diffusion restriction, or susceptibility hypointensity is present. The ventricl es are normal in size. The midline structures are intact. The major intracranial flow voids are prese nt. The aerated spaces are normal. The orbital contents and extracranial soft tissues appear normal. IMPRESSION: Left occipital lobe encephalomalcia likely from an old infarct. No acute abnormal MRI findings of the brain.
[2024-11-16] MEDS: ENOXAPARIN SOD 40 MG/0.4 ML SYRINGE SC SCH (09:31)
[2024-11-16] MEDS: ERGOCALCIFEROL 50,000 UNIT(1.25MG) CAP PO SCH (09:31)
[2024-11-16] MEDS: ASPirin 81 mg TAB PO SCH (09:31)
--- NOTE | 2024-11-16 12:40 | DVHSR ---
APPROVED REPORT EXAM: Two-dimensional and M-mode echocardiogram with Doppler and color Doppler. Blood Pressure: 146/92 mmHg INDICATION CVA/TIA: RISK FACTORS Height: 5'8", Weight: 180 DIMENSIONS LVDd4.4 (3.8-5.7cm)LA (2D)4.1 (1.9-4.0cm)Aortic Root3.4 (2.0-3.7cm) LVDs3.0 (2.5-4.0cm)LA (MM) (1.9-4.0cm)Aortic Cusp Exc1.0 (1.5-2.0cm) EF (%) 59.0 (55-70%)Rt. Atrium4.7 (1.9-4.0cm)Asc. Aorta3.7 cm IVSd1.2 (0.7-1.1cm)RV (D) (1.8-2.4cm) PWd1.0 (0.7-1.1cm) Mitral Valve MitralMitral Stenosis E wave0.69m/sMV Mean GR.mmHg A wave0.64m/sMV Peak GR.mmHg E/A ratio1.12D MVAcm2 DECEL [id number] 1/2 Timems Aortic Valve Aortic ValveAortic Stenosis V10.96m/Donnie Mean GR.6mmHg V21.54m/Donnie Peak GR.9mmHg LVOT Diameter2.4 (1.8-2.4cm)Doppler AVA2.82cm2 2D AVA1.76cm2 Pulmonic Valve V20.72m/s Tricuspid Valve TR Velocity2.65m/s [id number] Other Information Quality : Technically LimitedRhythm : Technically limited study due to body habitus. Conclusion lvef 50% by visual estimate mild LVH moderate dilated RV mild biatrial enlargement aortic sclerosis mild no severe valve abnormalities noted
--- NOTE | 2024-11-16 13:06 | DVHPNRES ---
Progress Note Date Seen: Nov 16, 2024 Resident Creating Document: CLARENCE SHARP RESIDENT Has the PT tested + for MRSA If YES, has PT been informed?: No Medical Necessity Reason Pt with a Central, PICC or Fol: No Medical Necessity Reason History and physical Brent Hawkins is a 74-year-old male patient who presents to the ED with chief complaint of bilateral lower limb weakness (right greater than left) which started approximately 2-3 weeks ago, associated with multiple episodes of mechanical fall with head trauma, during one episode after falling he lost consciousness for an unknown amount of time. He was evaluated in the ED approximately one week ago with the same complaints, with discharge with no improvement of symptoms. Denies altered bowel or urinary symptoms, palpitation, syncope, chest pain, dyspnea, nausea, vomiting, diarrhea, sick contacts, recent travel, bleeding and other motor or sensory deficits. Past medical history: Hypertension, dyslipidemia, chronic lower back pain, osteoarthritis, prostate cancer (no surgeries nor chemotherapy), left inguinal hernia (no surgical treatment), anxiety Surgical history: Denies Family history: Sister recently had a stroke. Other sister from AIDS- related cancer Social history: Currently lives with a friend but he was kicked out of his house (he has never been homeless yet) as an older sister the lives in [facility] no younger sister that lives in [place]. Denies current tobacco, alcohol and other drug abuse Allergies: Denies Home medication: Tamsulosin, Lipitor and diazepam PN: 11/16/2024 Patient is a 74-year-old male with a history of hypertension, chronic back pain, dyslipidemia, osteoarthritis and prostate cancer presented to the ED yesterday with a chief complaint of right leg pain and difficulties with ambulation the pain. According to the patient, this has been happening for the past 2-3 weeks associated with loss of balance and fall. He denies trauma and a stroke history, unilateral weakness. Patient is homeless and has not seen a provider in a while. He is a poor historian. He thinks he has a stroke and that is why is here. CT head did not reveal any new acute lesions. However, it shows Mild cerebral volume loss and mild chronic microvascular ischemic change. 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 MRI brain showed Left occipital lobe encephalomalcia likely from an old infarct. Echocardiogram showed lvef 50% by visual estimate. Right knee x-ray showed Severe tricompartmental degenerative changes. Small joint effusion. Subjective Review of Systems Constitutional: Denies fever no chills no feeling of malaise HEENT: Denies headache, ear pain, ear discharges, conjunctivitis, nasal discharge throat pain Cardiovascular: Denies chest pain, palpitation, orthopnea, PND, or pedal edema Respiratory: Denies shortness of breath, cough cough, sputum production, hemoptysis, GI: Denies abdominal pain, nausea, vomiting, diarrhea, hematemesis, hematochezia, : Denies frequency, urgency, hematuria, Endocrine: Denies unintentional weight gain or weight loss, feeling of hot flashes, Lewis: Denies easy bruising, bleeding disorders, epistaxis Musculoskeletal: Back pain, Right joint pains. Antalgic gait Psych: No evidence of depression, caroline, suicidal ideation Objective vital signs Vital Sign Date Time Temp Pulse Resp B/P (MAP) Pulse Ox O2 Delivery O2 Flow Rate FiO2 11/16/24 08:10 77 17 98 Room Air* 0 21 11/16/24 05:00 98.0 146/92 (110) 98.0 Total Intake and Output 11/15/24 11/15/24 11/16/24 15:00 23:00 07:00 Intake Total 10 ml Balance 10 ml medications Current Medications Medications Dose Ordered Sig/Madiha Route Start Time Stop Time Status Last Admin Dose Admin Ondansetron HCl 4 mg Q4HP PRN IV 11/15/24 23:45 Morphine Sulfate 2 mg Q4HPRN PRN IV 11/15/24 23:45 Enoxaparin Sodium 40 mg DAILY SC 11/16/24 10:00 11/16/24 09:31 40 MG Aspirin 81 mg DAILY PO 11/16/24 10:00 11/16/24 09:31 81 MG Ergocalciferol 50,000 unit Q7D PO 11/16/24 10:00 11/16/24 09:31 50,000 UNIT Examination General Appearance: Alert, Oriented X3, Cooperative, No acute distress HEENT: Atraumatic, PERRLA, EOMI, Mucous membrane moist/pink Respiratory: Clear to auscultation, Normal air movement Cardiovascular: Regular rate, Normal S1, Normal S2, No murmurs, no chest wall tenderness Abdominal: NO distention, no tenderness, bowel sounds present, no scars noted Extremities: onchycosmsis Skin: No rashes, No breakdown, No significant lesion Neuro: mild anthalgic gait, Normal speech, Strength at 5/5 X4 ext, Normal tone, Sensation intact, Cranial nerves 3-12 NL, Reflexes 2+ Psych/Mental Status: Mental status NL, Mood NL laboratory and microbiology Laboratory Tests 11/16/24 04:45 Test 11/16/24 04:45 Range/Units Serum Glucose 107 H 74-106 mg/dL Problem List/Assessment/Plan Problem List/Assessment/Plan Assessment Hypertensive urgency --> BP: 195/101 --> Optimizing medical therapy for hypertension --> Lisinopril NSTEMI probable type 2 --> Troponin: 59, 60, 65 --> Secondary to the hypertensive urgency Osteoarthritis Right knee pain --> Multiple mechanical falls --> Severe tricompartmental degenerative changes.Small joint effusion --> Tylenol Chronic low back pain Vitamin-D deficiency --> Vitamin D3 50,000 Normocytic anemia --> Hgb: 12.8 Dyslipidemia --> Patient was started on aspirin, did not start atorvastatin due to elevated CPK (cause of elevated CPK most likely secondary to mechanical falls) ? Prostate cancer VS prostate enlargement --> Tamsulosin Left inguinal hernia Goals of care discussed with patient for over 25 minutes: Full code status (patient was never in hospice) Case and plan discussed + Dr. Mendenhall Plan discussed with: Patient My Orders My Orders Orders - CLARECNE SHARP Procedure Category Date Status Time Pt Request For Service PT 11/16/24 Logged 12:57 Lisinopril Tablet PHA 11/17/24 Logged (Zestril Tablet) 10:00 Lisinopril Tablet PHA 11/16/24 Logged (Zestril Tablet) 13:00 R Knee 2v Xray XY 11/16/24 Logged 13:00 Date of Service: Nov 16, 2024 Billing Provider: OSIEL MENDENHALL MD Common Visit Codes: [id number] INP/OBS CARE(HIGH) CLARENCE SHARP Nov 16, 2024 13:06 OSIEL MENDENHALL MD Nov 21, 2024 22:03
--- NOTE | 2024-11-16 13:54 | DVH ---
CLINICAL INDICATION: right knee pain TECHNIQUE: XY R KNEE 2V XRAY Comparison: None FINDINGS/IMPRESSION: : There is no evidence of acute fracture or dislocation. Severe tricompartmental degenerative changes. Small joint effusion.
[2024-11-16] MEDS: LISINOPRIL 5 MG TAB PO ONE (14:15)
--- NOTE | 2024-11-16 19:39 | DVHINCON2 ---
Date of service: Nov 16, [address] Andrade Reason for Consultation Bilateral lower limb weakness three weeks History of Present Illness Mr. Hawkins is a 74 years old right-handed gentleman with a history of hypertension, dyslipidemia, osteoarthritis, chronic low back pain, prostate cancer, he came to the [facility] on 11/15/2024 with a chief complaint of right leg weakness. At this time, he is alert, oriented x3, he provided following history (not a good historian) Three days prior to this admission, he woke up in the morning with left leg weakness, in that he dragged the leg when he walked, there was no associated numbness, pain or other discomfort, and he noticed the problem has been gradually improving, and his walking is much better now. He has never had sim ilar problems previously He has no history of traumatic brain injury, intracranial infection, or family history of seizure disorder He denies a history of stroke, but he has MRI/CT head scan she was evidence suggestive of left frontal/parietal stroke. He was on daily baby aspirin at home WBC/HB/PLT/MCV, 11/16/2024: 5.01/1203/225/94.8 CMP, 11/16/2024: Unremarkable HGB A1c, 11/15/2024: 5 TG/HDL/LDL/HDL, 11/15/2024: 73/232/175/40 Vitamin B12, 11/15/24: 308 Folic acid, 11/16/2024: 5.38 TSH, 11/15/2024: 0.66 CT head, 11/15/2024: 1. No acute intracranial abnormality. 2. Mild cerebral volume loss and mild chronic microvascular ischemic change. 3. 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 MRI head, 11/16/2024: Left occipital lobe encephalomalcia likely from an old infarct. No acute abnormal MRI findings of the brain (I think it is left frontal/parietal chronic encephalomalacia) Past Medical History Hypertension, dyslipidemia, osteoarthritis, chronic low back pain, prostatic cancer Past Surgical History None Family History: Cardiovascular disease G8 MOTHER Hypertension G8 MOTHER G8 FATHER Family History Hypertension, vascular disease Social History He was not a tobacco smoker, he denies a history of alcohol or recreational subs tances abuse Allergies: Coded Allergies: Ibuprofen (Verified Allergy, Unknown, 09/30/23) Penicillins (Verified Allergy, Unknown, 01/26/23) Home Meds Active Scripts Acetaminophen (Acetaminophen) 500 Mg Tab, 500 MG PO Q4HP PRN, #30 TAB Prov:JUSTINO YEAGER PAC 10/27/24 Tamsulosin Hcl (Tamsulosin Hcl) 0.4 Mg Cap, 1 CAP PO DAILY, #30 CAP 5 Refills Prov:LYNDSEY HOSKINS MD 09/29/24 Hydrocodone-Acetaminophen (Hydrocodone/Acetaminophen 5-325 mg) 1 Tab Tab, 1 TAB PO BID for 7 Days, #14 TAB Prov:LYNDSEY HOSKINS MD 09/29/24 Hydrocodone-Acetaminophen (Hydrocodone Bitartrate/AC 5-325 mg) 1 Tab Tab, 1 TAB PO Q6HP PRN, #20 TAB Prov:ANNMARIE SCRUGGS MD 09/18/24 Tamsulosin HCl (Tamsulosin Hydrochloride) 0.4 Mg Cap, 0.4 MG PO DAILY@BREAKFAST for 30 Days, #30 CAP Prov:ZAIN HILTON MD 08/26/24 Albuterol Sulfate (Albuterol Sulfate Hfa) 108 Mcg/Act Aer, 108 MCG IN Q4HP PRN, #1 AER Prov:JUSTINO YEAGER PAC 06/29/24 Azithromycin (Azithromycin) 500 Mg Tab, 1 TAB PO DAILY for 5 Days, #5 TAB Prov:JUSTINO YEAGER PAC 06/29/24 Hydrocodone-Acetaminophen (Hydrocodone Bitartrate/AC 5-325 mg) 1 Tab Tab, 1 TAB PO BID, #10 TAB Prov:MIHAI SALAZAR 11/24/23 Hydrocodone-Acetaminophen (Hydrocodone Bitartrate/AC 5-325 mg) 1 Tab Tab, 1 TAB PO BID, #14 TAB Prov:MIHAI SALAZAR 10/29/23 Hydrocodone-Acetaminophen (Hydrocodone Bitartrate/AC 5-325 mg) 1 Tab Tab, 1 TAB PO Q8HP PRN, #25 TAB Prov:JUSTINO YEAGER PAC 09/30/23 Ibuprofen (Ibuprofen) 600 Mg Tab, 1 TAB PO TID, #90 TAB 1 Refill Prov:JUSTINO YEAGER PAC 09/30/23 Tamsulosin Hcl (Flomax) 0.4 Mg Cap, 1 CAP PO DAILY for 30 Days, #30 CAP 1 Refill Prov:JUSTINO YEAGER PAC 09/30/23 Benzonatate (Benzonatate) 200 Mg Cap, 1 CAP PO TID, #30 CAP Prov:MIHAI SALAZAR 08/20/23 Acetaminophen (Tylenol Extra Strength) 500 Mg Tab, 500 MG PO QID, #30 TAB Prov:MIHAI SALAZAR 08/20/23 Oseltamivir Phosphate (Tamiflu) 75 Mg Cap, 75 MG PO BID, #10 CAP Prov:MIHAI SALAZAR 08/20/23 Ibuprofen (Ibuprofen) 800 Mg Tab, 1 TAB PO TID, #30 TAB Prov:MIHAI SALAZAR 05/26/23 Ibuprofen (Ibuprofen) 600 Mg Tab, 1 TAB PO Q6HP PRN, #30 TAB Prov:JUSTINO YEAGER PAC 05/07/23 Tramadol Hcl (Tramadol Hcl) 50 Mg Tab, 50 MG PO Q8HP PRN, #10 TAB Prov:JUSTINO YEAGER PAC 04/20/23 Docusate Sodium (Colace) 100 Mg Cap, 1 CAP PO BID for 5 Days, #10 CAP Prov:IVONNE JEFFERY MD 04/14/23 Hydrocodone-Acetaminophen (Hydrocodone Bitartrate/AC 5-325 mg) 1 Tab Tab, 1 TAB PO Q8HP PRN for 7 Days, #21 TAB Prov:ANNMARIE SCRUGGS MD 04/07/23 Acetaminophen W/ Codeine (Tylenol #4 W/Codeine) 1 Tab Tb, 1 TAB PO Q8HP PRN, #15 TAB Prov:JUSTINO YEAGER PAC 03/27/23 Acetaminophen (Tylenol Extra Strength) 500 Mg Tab, 500 MG PO BIDP PRN for 10 Days, #20 TAB 0 Refills Prov:ANASTACIA OWENS NP 02/21/23 Hydrocodone-Acetaminophen (Hydrocodone Bitartrate/AC 10-325 mg) 1 Tab Tab, 1 TAB PO Q4HP PRN, #15 TAB 0 Refills Prov:ELIANA GUDINO PA 01/15/23 Benzonatate (Tessalon Perles) 100 Mg Cap, 1 CAP PO TID PRN, #21 CAP Prov:MARIPOSA NESBITT 12/08/22 Tamsulosin Hcl (Flomax) 0.4 Mg Cap, 1 CAP PO DAILY, #30 CAP 11 Refills Prov:ANNMARIE SCRUGGS MD 12/06/22 Reported Medications Diphenhydramine Hcl (Benadryl Allergy) 25 Mg Cap, 1 CAP PO QPM, #30 CAP 1 Refill 11/16/24 Diazepam (Diazepam) 10 Mg Tab, 1 TAB PO BID, #60 TAB 11/16/24 Atorvastatin Calcium (Lipitor) 20 Mg Tab, 1 TAB PO DAILY, #90 TAB 1 Refill 11/16/24 Current Medications Current Medications Medications (Trade) Dose Ordered Sig/Madiha Route PRN Reason Start Time Stop Time Status Last Admin Ondansetron HCl (Zofran) 4 mg Q4HP PRN IV NAUSEA / VOMITING 11/15/24 23:45 Morphine Sulfate 2 mg Q4HPRN PRN IV SEVERE PAIN (7-10 PAIN SCALE) 11/15/24 23:45 Enoxaparin Sodium (Lovenox) 40 mg DAILY SC 11/16/24 10:00 11/16/24 09:31 Aspirin 81 mg DAILY PO 11/16/24 10:00 11/16/24 09:31 Ergocalciferol (Vitamin D 50,000 Unit) 50,000 unit Q7D PO 11/16/24 10:00 11/16/24 09:31 Lisinopril (Zestril Tablet) 5 mg DAILY PO 11/17/24 10:00 Review of Systems As above, the other systems are negative Vital Signs Vital Signs Date Time Temp Pulse Resp B/P (MAP) Pulse Ox O2 Delivery O2 Flow Rate FiO2 11/16/24 17:00 98.4 71 16 130/75 (93) 97 98.4 11/16/24 08:10 Room Air* 0 21 Physical Exam GENERAL EXAM: General: the patient is well developed and nourished. No acute distress. HEENT: Normocephalic, neck is supple, no carotid bruits. No mass. RESPIRATORY: Normal respiratory effort with symmetrical lung expansion. Lungs clear to auscultation. CARDIOVASCULAR: Regular rate and rhythm with no murmurs. S1, S2. ABDOMEN: Soft, nontender, normal bowel sound NEUROLOGICAL: MENTAL STATUS: Awake and alert. Oriented to person, place, time and general circumstances. Able to give personal history. SPEECH, LANGUAGE, HIGHER CORTICAL FUNCTION: no aphasia or dysathria. CRANIAL NERVES: #2: Intact visual dow to confrontation. The optic discs were sharp. #3,4,6: Pupils are equal, round and reactive. EOMs full and conjugate. . #5: Facial sensation intact in all three divisions bilaterally. Mandibular strength intact. #7: Facial muscles symmetrical and strength intact. #8: Hearing grossly normal to voice. #9,10: Uvula and soft palate rise in the midline. Swallow and voice are normal. #11: Trapezius and sternomastoid strength intact bilaterally. #12: Tongue midline. No fasciculations or atrophy. SENSATION: Sensation to touch and pinprick is normal. MOTOR: Normal tone in the upper and lower extremity. Normal muscle bulk. No fasciculations. No abnormal movements or posturing. Muscle strength is slightly weaker in the right leg REFLEXES: Deep tendon reflexes normal and symmetrical. No pathological reflexes. CEREBELLAR/COORDINATION: Finger to nose is normal bilaterally. GAIT/STATION: Mildly unsteady Labs/Diagnostic Data Labs Test 11/16/24 04:45 11/15/24 23:58 11/15/24 03:30 11/15/24 03:16 Range/Units White Blood Count 5.6 4.4-10.8 10^3/uL Red Blood Count 3.89 L 4.5-5.90 10^6/uL Hemoglobin 12.3 L 13.5-17.5 g/dL Hematocrit 36.8 L 41.0-53.0 % Mean Corpuscular Volume 94.8 80.0-100.0 fL Mean Corpuscular Hemoglobin 31.6 28.0-32.0 pg Mean Corpuscular Hemoglobin Concent 33.3 32.0-36.0 g/dL Red Cell Distribution Width 13.7 11.8-14.3 % Platelet Count 225 140-450 10^3/uL Mean Platelet Volume 7.5 6.9-10.8 fL Neutrophils (%) (Auto) 64.0 37.0-80.0 % Lymphocytes (%) (Auto) 26.1 10.0-50.0 % Monocytes (%) (Auto) 7.5 0.0-12.0 % Eosinophils (%) (Auto) 1.7 0.0-7.0 % Basophils (%) (Auto) 0.7 0.0-2.0 % Neutrophils # (Auto) 3.6 1.6-8.6 10 ^3/uL Lymphocytes # (Auto) 1.5 0.4-5.4 10 ^3/uL Monocytes # (Auto) 0.4 0-1.3 10 ^3/uL Eosinophils # (Auto) 0.1 0-0.8 10 ^3/uL Basophils # (Auto) 0 0-0.2 10 ^3/uL Nucleated Red Blood Cells 0.1 % Reticulocyte Count (auto) 1.25 0.5-1.5 % Sodium Level 140 136-145 mmol/L Potassium Level 3.9 3.5-5.1 mmol/L Chloride Level 107 98-107 mmol/L Carbon Dioxide Level 24 20-31 mmol/L Anion Gap 9 5-15 Blood Urea Nitrogen 15 9-23 mg/dL Creatinine 1.01 0.700-1.30 mg/dL Glomerular Filtration Rate Calc 78 >90 mL/min BUN/Creatinine Ratio 14.9 10.0-20.0 Serum Glucose 107 H 74-106 mg/dL Calcium Level 9.4 8.7-10.4 mg/dL Iron Level 63 L 65-175 ug/dL Total Iron Binding Capacity 271 250-425 ug/dL Percent Iron Saturation 23.2 20-55 % Ferritin 200.0 22-322 ng/mL Total Bilirubin 0.6 0.2-1.0 mg/dL Aspartate Amino Transferase (AST) 15 13-40 U/L Alanine Aminotransferase (ALT) 15 7-40 U/L Alkaline Phosphatase 56 46-116 U/L Creatine Kinase 258 H 46-171 U/L Total Protein 6.6 5.7-8.2 g/dL Albumin 3.8 3.2-4.8 g/dL Folic Acid 19.50 >5.38 ng/mL Lactic Acid Level 1.7 0.4-2.0 mmol/L Phosphorus Level 2.7 2.4-5.1 mg/dL Magnesium Level 1.9 1.6-2.6 mg/dL Triglycerides Level 73 < 150 mg/dL Cholesterol Level 232 H < 200 mg/dL LDL Cholesterol 175 H < 100 mg/dL HDL Cholesterol 40 40-59 mg/dL Vitamin B12 Level 308 211-911 pg/mL Vitamin D 25-Hydroxy 19.2 L 30.0-100 ng/mL Thyroid Stimulating Hormone (TSH) 0.64 0.55-4.78 uIU/mL Troponin I High Sensitivity 65 *H </=54 ng/L Urine Color Light-yellow Yellow Urine Clarity Clear Clear Urine pH 5.0 5.0-9.0 Urine Specific [place] 1.014 1.001-1.035 Urine Protein Negative Negative Urine Ketones Negative Negative Urine Blood Negative Negative /uL Urine Nitrite Negative Negative Urine Bilirubin Negative Negative Urine Urobilinogen Normal Negative mg/dL Urine Leukocyte Esterase Negative Negative /uL Urine RBC 1 0 - 3 /hpf Urine Microscopic WBC 1 0-3 /HPF Urine Squamous Epithelial Cells Few <5 /hpf Urine Uric Acid Crystals Few None Seen /hpf Urine Bacteria None seen None Seen /hpf Urine Mucus Few None Seen Urine Glucose Normal Normal mg/dL Test 11/15/24 00:25 Range/Units Prothrombin Time 11.5 9.3-11.8 sec Prothrombin Time INR 1.09 0.9-1.15 Activated Partial Thromboplast Time 27.4 24.5-34.5 SEC Hemoglobin A1c 5.0 <5.7 % A1C B-Type Natriuretic Peptide 18.67 0-100 pg/mL Assessment New onset right lower extremity weakness Negative MRI ruled out acute stroke He might have a focal seizure when he was asleep, and 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 Although this document has been carefully reviewed, there may still be some phonetic and typographical errors. These areas are purely typographical due to imperfections of the software programs, and do not reflect any compromise in the patient's medical care. Plan discussed with: Patient, Other EPIFAINO CHRISTIE MD Nov 16, 2024 19:39
--- NOTE | 2024-11-16 21:42 | DVH ---
PROCEDURE: US CAROTID DUPLX W COLOR DOP 11/16/2024 09:12 PM INDICATION: cva COMPARISON: None TECHNIQUE: Real-time grayscale and color Doppler images of the neck arteries were obtained with spect ral analysis performed. FINDINGS: RIGHT: Moderate calcified plaque formation noted at the carotid bulb. Normal spectral waveforms are seen. ICA peak systolic velocity: 86 cm/s ICA end-diastolic velocity: 29 cm/s ICA/CCA ratios: 1.1 LEFT: Mild soft plaque formation noted at the carotid bulb. Normal spectral waveforms are seen. ICA peak systolic velocity: 83 cm/s ICA end-diastolic velocity: 28 cm/s ICA/CCA ratios: 0.9 VERTEBRAL ARTERIES: Normal antegrade flow is seen bilaterally. Normal spectral waveforms. IMPRESSION: 1. No hemodynamically significant carotid artery stenosis identified bilaterally. Reference: Radiology 2003; 229:[id number] Normal ICA PSV is <125 cm/sec and no plaque or intimal thickening is visible sonographically additional criteria include ICA/CCA PSV ratio <2.0 and ICA EDV <40 cm/sec <50% ICA stenosis ICA PSV is <125 cm/sec and plaque or intimal thickening is visible sonographically additional criteria include ICA/CCA PSV ratio <2.0 and ICA EDV <40 cm/sec 50-69% ICA stenosis ICA PSV is 125-230 cm/sec and plaque is visible sonographically additional criteria include ICA/CCA PSV ratio of 2.0-4.0 and ICA EDV of 40-100 cm/sec 70% ICA stenosis but less than near occlusion ICA PSV is >230 cm/sec and visible plaque and luminal narrowing are seen at soto-scale and color Dopp ler ultrasound (the higher the Doppler parameters lie above the threshold of 230 cm/sec, the greater the likelihood of severe disease) additional criteria include ICA/CCA PSV ratio >4 and ICA EDV >100 cm/sec
[2024-11-16] MEDS: ATORVASTATIN 20 MG TAB PO SCH (22:12)
[2024-11-16 22:13] LABS: Triglycerides 96 mg/dL (< 150)
[2024-11-16 22:17] LABS: Cholesterol 216 mg/dL (< 200); HDL Cholesterol 33 mg/dL (40-59); LDL Cholesterol 163 mg/dL (< 100)
[2024-11-17] VITALS (9 sets, daily range): BP systolic 107–138; BP diastolic 62–92; PULSE 69–88; RESP 17–19; TEMP 97.8–98.6; O2SAT 96–98
[2024-11-17 08:44] LABS: Urine Bacteria None Seen /hpf (None Seen); Urine Blood Negative /uL (Negative); Urine Clarity Clear (Clear); Urine Color Light-Yellow (Yellow); Urine Protein, UAD Negative (Negative); Urine Specific Gravity 1.015 (1.001-1.035); Urine Squamous Epithelial Cell FEW /hpf (<5); Urine Urobilinogen Normal (Negative); Urine WBC 2 /HPF (0-3); Urine pH 5.5 (5.0-9.0)
[2024-11-17 08:47] LABS: Amphetamine Screen, Urine Neg (NEGATIVE)
[2024-11-17 08:48] LABS: Cannabinoid Screen, Urine Neg (NEGATIVE)
[2024-11-17 09:11] LABS: Barbiturate Scree,Urine Neg (NEGATIVE); Benzodiazephine Screen, Urine Neg (NEGATIVE); Cocaine Screen, Urine Neg (NEGATIVE); Opiate Scree,Urine Neg (NEGATIVE); Phencyclidine Screen, Urine Neg (NEGATIVE)
[2024-11-17] MEDS: LISINOPRIL 5 MG TAB PO SCH (09:16)
[2024-11-17] MEDS: ENOXAPARIN SOD 40 MG/0.4 ML SYRINGE SC SCH (09:18)
[2024-11-17] MEDS: MORPHINE SULFATE INJ 2 MG/ml SYRG IV PRN (09:19)
[2024-11-17 13:34] LABS: Chloride 104 mmol/L (98-107); Potassium 3.5 mmol/L (3.5-5.1); Sodium 139 mmol/L (136-145)
[2024-11-17 13:35] LABS: Anion Gap 7 (5-15); Calcium 9.3 mg/dL (8.7-10.4); Carbon Dioxide 28 mmol/L (20-31)
[2024-11-17 13:40] LABS: BUN/Creatinine Ratio 11.1 (10.0-20.0); Blood Urea Nitrogen 12 mg/dL (9-23); Glucose 102 mg/dL (74-106)
[2024-11-17 13:50] LABS: Creatine Kinase IFCC 179 U/L (46-171)
[2024-11-17] MEDS: SODIUM CHLORIDE 0.9% 1,000 ML IV ONE (15:53)
--- NOTE | 2024-11-17 19:32 | DVHPNRES ---
Progress Note Date Seen: Nov 17, 2024 Resident Creating Document: CLARENCE SHARP RESIDENT Has the PT tested + for MRSA If YES, has PT been informed?: No Medical Necessity Reason Pt with a Central, PICC or Fol: No Medical Necessity Reason History and physical Brent Hawkins is a 74-year-old male patient who presents to the ED with chief complaint of bilateral lower limb weakness (right greater than left) which started approximately 2-3 weeks ago, associated with multiple episodes of mechanical fall with head trauma, during one episode after falling he lost consciousness for an unknown amount of time. He was evaluated in the ED approximately one week ago with the same complaints, with discharge with no improvement of symptoms. Denies altered bowel or urinary symptoms, palpitation, syncope, chest pain, dyspnea, nausea, vomiting, diarrhea, sick contacts, recent travel, bleeding and other motor or sensory deficits. Past medical history: Hypertension, dyslipidemia, chronic lower back pain, osteoarthritis, prostate cancer (no surgeries nor chemotherapy), left inguinal hernia (no surgical treatment), anxiety Surgical history: Denies Family history: Sister recently had a stroke. Other sister from AIDS- related cancer Social history: Currently lives with a friend but he was kicked out of his house (he has never been homeless yet) as an older sister the lives in [facility] no younger sister that lives in [place]. Denies current tobacco, alcohol and other drug abuse Allergies: Denies Home medication: Tamsulosin, Lipitor and diazepam PN: 11/16/2024 Patient is a 74-year-old male with a history of hypertension, chronic back pain, dyslipidemia, osteoarthritis and prostate cancer presented to the ED yesterday with a chief complaint of right leg pain and difficulties with ambulation the pain. According to the patient, this has been happening for the past 2-3 weeks associated with loss of balance and fall. He denies trauma and a stroke history, unilateral weakness. Patient is homeless and has not seen a provider in a while. He is a poor historian. He thinks he has a stroke and that is why is here. CT head did not reveal any new acute lesions. However, it shows Mild cerebral volume loss and mild chronic microvascular ischemic change. 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 MRI brain showed Left occipital lobe encephalomalcia likely from an old infarct. Echocardiogram showed lvef 50% by visual estimate. Right knee x-ray showed Severe tricompartmental degenerative changes. Small joint effusion. PN: 11/17/2024 Patient is seen and examined on the bedside today. Patient patient is doing well except for joint pain in his right knee most likely the patient has was do arthritis. He has x-ray of the knee revealed no evidence of acute fracture or dislocation. Severe tricompartmental degenerative changes. Small joint effusion. Will we will start the patient on a Tylenol, Toradol Subjective Review of Systems Constitutional: Denies fever no chills no feeling of malaise HEENT: Denies headache, ear pain, ear discharges, conjunctivitis, nasal discharge throat pain Cardiovascular: Denies chest pain, palpitation, orthopnea, PND, or pedal edema Respiratory: Denies shortness of breath, cough cough, sputum production, hemoptysis, GI: Denies abdominal pain, nausea, vomiting, diarrhea, hematemesis, hematochezia, : Denies frequency, urgency, hematuria, Endocrine: Denies unintentional weight gain or weight loss, feeling of hot flashes, Lewis: Denies easy bruising, bleeding disorders, epistaxis Musculoskeletal: Denies joint pains, muscle aches Psych: No evidence of depression, caroline, suicidal ideation Objective vital signs Vital Sign Date Time Temp Pulse Resp B/P (MAP) Pulse Ox O2 Delivery O2 Flow Rate FiO2 11/17/24 16:42 98.0 77 17 110/71 (84) 98 98.0 11/17/24 08:10 Room Air* 0 21 Total Intake and Output 11/16/24 11/16/24 11/17/24 15:00 23:00 07:00 Intake Total 1350 ml 700 ml Balance 1350 ml 700 ml medications Current Medications Medications Dose Ordered Sig/Madiha Route Start Time Stop Time Status Last Admin Dose Admin Ondansetron HCl 4 mg Q4HP PRN IV 11/15/24 23:45 Morphine Sulfate 2 mg Q4HPRN PRN IV 11/15/24 23:45 11/17/24 09:19 2 MG Aspirin 81 mg DAILY PO 11/16/24 10:00 11/17/24 09:16 81 MG Ergocalciferol 50,000 unit Q7D PO 11/16/24 10:00 11/16/24 09:31 50,000 UNIT Lisinopril 5 mg DAILY PO 11/17/24 10:00 11/17/24 09:16 5 MG Enoxaparin Sodium 40 mg DAILY SC 11/17/24 10:00 11/17/24 09:18 40 MG Atorvastatin Calcium 80 mg HS PO 11/16/24 22:00 11/16/24 22:12 80 MG Examination General Appearance: Alert, Oriented X3, Cooperative, No acute distress HEENT: Atraumatic, PERRLA, EOMI, Mucous membrane moist/pink Respiratory: Clear to auscultation, Normal air movement Cardiovascular: Regular rate, Normal S1, Normal S2, No murmurs, no chest wall tenderness Abdominal: NO distention, no tenderness, bowel sounds present, no scars noted Extremities: No clubbing, No cyanosis, No edema, Normal pulses, No tenderness/swelling Skin: No rashes, No breakdown, No significant lesion Neuro: Normal gait, Normal speech, Strength at 5/5 X4 ext, Normal tone, Sensation intact, Cranial nerves 3-12 NL, Reflexes 2+ Psych/Mental Status: Mental status NL, Mood NL laboratory and microbiology Laboratory Tests 11/17/24 13:14 11/16/24 04:45 Test 11/17/24 13:14 Range/Units Serum Glucose 102 74-106 mg/dL Problem List/Assessment/Plan Problem List/Assessment/Plan Assessment Hypertensive urgency --> BP: 195/101 --> Optimizing medical therapy for hypertension --> Lisinopril NSTEMI probable type 2 --> Troponin: 59, 60, 65 --> Secondary to the hypertensive urgency Osteoarthritis Right knee pain --> Multiple mechanical falls --> Severe tricompartmental degenerative changes.Small joint effusion --> Tylenol --> Toradol ---> No diclofenac gel avaiable Chronic low back pain Vitamin-D deficiency --> Vitamin D3 50,000 Normocytic anemia --> Hgb: 12.8 Dyslipidemia --> Patient was started on aspirin, did not start atorvastatin due to elevated CPK (cause of elevated CPK most likely secondary to mechanical falls) ? Prostate cancer VS prostate enlargement --> Tamsulosin --> Out patient follow up with urology Left inguinal hernia Goals of care discussed with patient for over 25 minutes: Full code status (patient was never in hospice) Case and plan discussed + Dr. Mendenhall Plan discussed with: Patient My Orders My Orders Orders - MORVEY,CLARENCE RESIDENT Procedure Category Date Status Time Sodium Chloride 0.9% PHA 11/17/24 In Process 11:30 Date of Service: Nov 17, 2024 Billing Provider: OSIEL MENDENHALL MD Common Visit Codes: [id number] INP/OBS CARE(HIGH) CLARENCE SHARP RESIDENT Nov 17, 2024 19:32 OSIEL MENDENHALL MD Nov 21, 2024 22:07
[2024-11-17] MEDS: ACETAMINOPHEN 325 MG TAB PO SCH (21:54)
[2024-11-18] VITALS (7 sets, daily range): BP systolic 115–144; BP diastolic 70–89; PULSE 68–81; RESP 16–18; TEMP 97.9–98.4; O2SAT 95–98
[2024-11-18] MEDS ORDERED: KETOROLAC TROMETH 30 MG/ML 1ML VIAL IV SCH
--- NOTE | 2024-11-18 17:01 | DVHPN2 ---
Assessment/Plan Assessment/Plan Progress note Brent Hawkins is a 74-year-old male patient who presents to the ED with chief complaint of bilateral lower limb weakness (right greater than left) which started approximately 2-3 weeks ago, associated with multiple episodes of mechanical fall with head trauma, during one episode after falling he lost consciousness for an unknown amount of time. He was evaluated in the ED approximately one week ago with the same complaints, with discharge with no improvement of symptoms. Denies altered bowel or urinary symptoms, palpitation, syncope, chest pain, dyspnea, nausea, vomiting, diarrhea, sick contacts, recent travel, bleeding and other motor or sensory deficits. seen today, pain improved however allergic to toradol. plan for tap tomorrow physical exam aox4 PERRLA MMM s1 s2 RRR abdomen tender no le edema b/l small knee eff labs ekg imaging reviwed assessment and plan Hypertensive urgency --> BP: 195/101 --> Optimizing medical therapy for hypertension --> Lisinopril NSTEMI probable type 2 --> Troponin: 59, 60, 65 --> Secondary to the hypertensive urgency Osteoarthritis Right knee pain --> Multiple mechanical falls --> Severe tricompartmental degenerative changes.Small joint effusion --> Tylenol --> Toradol ---> No diclofenac gel avaiable old stroke Chronic low back pain Vitamin-D deficiency --> Vitamin D3 50,000 Normocytic anemia --> Hgb: 12.8 Dyslipidemia --> Patient was started on aspirin, did not start atorvastatin due to elevated CPK (cause of elevated CPK most likely secondary to mechanical falls) ? Prostate cancer VS prostate enlargement --> Tamsulosin --> Out patient follow up with urology Left inguinal hernia dvt ppx ambul diet reg Plan discussed with: Patient My Orders Orders - OSIEL MENDENHALL MD Procedure Category Date Status Time Discontinue Tele RABIA 11/18/24 In Process 16:58 Transfer Orders XFER 11/18/24 Transmitted 16:58 Date of Service: Nov 18, 2024 Billing Provider: OSIEL MENDENHALL MD Common Visit Codes: [id number] INP/OBS CARE(HIGH) OISEL MENDENHALL MD Nov 18, 2024 17:01
[2024-11-19 01:00] VITALS: BP 139/87; PULSE 73; RESP 16; TEMP 97.6; O2SAT 100
[2024-11-19 05:00] VITALS: BP 162/98; PULSE 96; RESP 18; TEMP 98.1; O2SAT 97
[2024-11-19 07:25] LABS: Basophils # (auto) 0 10 ^3/uL (0-0.2); Basophils % (auto) 0.6 % (0.0-2.0); Eosinophils # (auto) 0.1 10 ^3/uL (0-0.8); Eosinophils % (auto) 1.6 % (0.0-7.0); Hematocrit 37.7 % (41.0-53.0); Hemoglobin 12.4 g/dL (13.5-17.5); Lymphocytes # (auto) 1.2 10 ^3/uL (0.4-5.4); Lymphocytes % (auto) 22.1 % (10.0-50.0); Mean Corpuscular Hemoglobin 31.3 pg (28.0-32.0); Mean Corpuscular Hgb Conc. 32.9 g/dL (32.0-36.0); Mean Corpuscular Volume 95.3 fL (80.0-100.0); Monocytes # (auto) 0.3 10 ^3/uL (0-1.3); Monocytes % (auto) 6.1 % (0.0-12.0); Neutrophils # (auto) 3.9 10 ^3/uL (1.6-8.6); Neutrophils % (auto) 69.6 % (37.0-80.0); Nucleated Red Blood Cells % 0.1 %; Platelet Count (auto) 245 10^3/uL (140-450); Red Blood Cells 3.96 10^6/uL (4.5-5.90); Red Cell Distribution Width 13.3 % (11.8-14.3); White Blood Cell 5.6 10^3/uL (4.4-10.8)
[2024-11-19 07:34] LABS: Anion Gap 6 (5-15); Carbon Dioxide 28 mmol/L (20-31); Chloride 107 mmol/L (98-107); Potassium 3.9 mmol/L (3.5-5.1); Sodium 141 mmol/L (136-145)
[2024-11-19 07:35] LABS: Calcium 9.5 mg/dL (8.7-10.4)
[2024-11-19 07:40] LABS: BUN/Creatinine Ratio 11.9 (10.0-20.0); Blood Urea Nitrogen 12 mg/dL (9-23); Glucose 97 mg/dL (74-106)
[2024-11-19 09:00] VITALS: BP 158/87; PULSE 70; RESP 18; TEMP 97.7; O2SAT 97
--- NOTE | 2024-11-19 19:10 | DVHDSRES ---
Discharge Summary Date of Admission Resident Creating Document: CLARENCE SHARP RESIDENT Nov 15, 2024 at 23:33 Date of Discharge: Nov 19, 2024 Admitting Diagnosis Right knee pain Labs/Diagnostic Data: PATIENT: BRENT HAWKINSACCT: [id number] UNIT: [id number] : 1950 LOC: [facility] ROOM / BED: [facility] / AGE / SEX: 74 / M ADM STATUS: ADM IN SERVICE 17 ORDERING PHYSICIAN: EPIFANIO HOYOS MD PROCEDURE(s): CARCL - CAROTID DUPLX W COLOR DOP REASON: cva ORDER NUMBER(s): [id number], ACCESSION NUMBER(s): [id number] PROCEDURE: US CAROTID DUPLX W COLOR DOP 11/16/2024 09:12 PM INDICATION: cva COMPARISON: None TECHNIQUE: Real-time grayscale and color Doppler images of the neck arteries were obtained with spectral analysis performed. FINDINGS: RIGHT: Moderate calcified plaque formation noted at the carotid bulb. Normal spectral waveforms are seen. ICA peak systolic velocity: 86 cm/s ICA end-diastolic velocity: 29 cm/s ICA/CCA ratios: 1.1 LEFT: Mild soft plaque formation noted at the carotid bulb. Normal spectral waveforms are seen. ICA peak systolic velocity: 83 cm/s ICA end-diastolic velocity: 28 cm/s ICA/CCA ratios: 0.9 VERTEBRAL ARTERIES: Normal antegrade flow is seen bilaterally. Normal spectral waveforms. IMPRESSION: 1. No hemodynamically significant carotid artery stenosis identified bilaterally. Reference: Radiology 2003; 229:[id number] Normal ICA PSV is <125 cm/sec and no plaque or intimal thickening is visible sonographically additional criteria include ICA/CCA PSV ratio <2.0 and ICA EDV <40 cm/sec <50% ICA stenosis ICA PSV is <125 cm/sec and plaque or intimal thickening is visible sonographically additional criteria include ICA/CCA PSV ratio <2.0 and ICA EDV <40 cm/sec 50-69% ICA stenosis ICA PSV is 125-230 cm/sec and plaque is visible sonographically additional criteria include ICA/CCA PSV ratio of 2.0-4.0 and ICA EDV of 40-100 cm/sec 70% ICA stenosis but less than near occlusion ICA PSV is >230 cm/sec and visible plaque and luminal narrowing are seen at soto-scale and color Doppler ultrasound (the higher the Doppler parameters lie above the threshold of 230 cm/sec, the greater the likelihood of severe disease) additional criteria include ICA/CCA PSV ratio >4 and ICA EDV >100 cm/sec ATED BY: MARY REYNA MD DICTATED DATE/TIME: 11/16/242138 PATIENT: BRENT HAWKINST: [id number] UNIT: [id number] : 1950 LOC: [facility] AGE / SEX: 74 / M ADM STATUS: ADM IN SERVICE 1300 ORDERING PHYSICIAN: CLARENCE SHARP PROCEDURE(s): RKNE2 - R KNEE 2V XRAY REASON: right knee pain ORDER NUMBER(s): [id number], ACCESSION NUMBER(s): [id number] CLINICAL INDICATION: right knee pain TECHNIQUE: XY R KNEE 2V XRAY Comparison: None FINDINGS/IMPRESSION: : There is no evidence of acute fracture or dislocation. Severe tricompartmental degenerative changes. Small joint effusion. ATED BY: ZEYAD LEDESMA MD DICTATED DATE/TIME: 11/16/24 1352 PATIENT: BRENT HAWKINST: [id number] UNIT: [id number] : 1950 LOC: [facility] AGE / SEX: 74 / M ADM STATUS: ADM IN SERVICE 0445 ORDERING PHYSICIAN: HARRISON JAY PROCEDURE(s): MBHL - BRAIN HEAD WO CONTRAST REASON: Rule out CVA ORDER NUMBER(s): [id number], ACCESSION NUMBER(s): [id number] MRI BRAIN HEAD WO CONTRAST INDICATION: Rule out CVA : 74 old Male Rule out CVA EXAM DATE: 11/16/2024 08:18 AM COMPARISON: 11/15/24 PROCEDURE: Using a 1.5 Sierra scanner, multisequence multiplanar imaging of the brain was obtained. FINDINGS: Left occipital lobe encephalomalcia. The brainshows normal morphology and signal characteristics. No abnormal , diffusion restriction, or susceptibility hypointensity is present. The ventricles are normal in size. The midline structures are intact. The major intracranial flow voids are present. The aerated spaces are normal. The orbital contents and extracranial soft tissues appear normal. IMPRESSION: Left occipital lobe encephalomalcia likely from an old infarct. No acute abnormal MRI findings of the brain. ATED BY: UCHE HOYOS MD DICTATED DATE/TIME: 11/16/24903 SIGNED BY: UCHE HOYOS MD PATIENT: BRENT HAWKINS LEEACCT: [id number] UNIT: [id number] : 1950 LOC: ER ROOM / BED: / AGE / SEX: 74 / M ADM STATUS: REG ER SERVICE ORDERING PHYSICIAN: ROBERTO FOX DO PROCEDURE(s): HWOCT - HEAD WITHOUT CONTRAST REASON: leg weakness ORDER NUMBER(s): [id number], ACCESSION NUMBER(s): [id number] CLINICAL HISTORY: leg weakness TECHNIQUE: Helical imaging carried out from skull base to vertex without intravenous contrast. This exam was performed according to our departmental dose optimization program. Up-to-date CT equipment and radiation dose reduction techniques are utilized as appropriate. CTDIVol: 59.19+ 0.07 mGy DLP: 1166.45 mGy-cm WID: COMPARISON: None FINDINGS: Mild cerebral volume loss with concordant prominence of the subarachnoid spaces and ventricles. 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 There is mild patchy low attenuation in the cerebral white matter consistent with nonspecific white matter disease. Incidental bilateral basal ganglia calcifications. There is no midline shift or mass effect. The soto white matter interfaces are otherwise maintained. The basal cisterns are patent. There is no evidence of acute intracranial hemorrhage or extra-axial fluid collection. The mastoid air cells and visualized paranasal sinuses are well-aerated. IMPRESSION: 1. No acute intracranial abnormality. 2. Mild cerebral volume loss and mild chronic microvascular ischemic change. 3. 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 ATED BY: LIANA PACHECO MD DICTATED DATE/TIME: 11/15/24 0106 Laboratory Results Test 11/19/24 06:18 11/17/24 13:14 11/17/24 08:10 11/17/24 08:09 White Blood Count 5.6 10^3/uL (4.4-10.8) Red Blood Count 3.96 10^6/uL (4.5-5.90) Hemoglobin 12.4 g/dL (13.5-17.5) Hematocrit 37.7 % (41.0-53.0) Mean Corpuscular Volume 95.3 fL (80.0-100.0) Mean Corpuscular Hemoglobin 31.3 pg (28.0-32.0) Mean Corpuscular Hemoglobin Concent 32.9 g/dL (32.0-36.0) Red Cell Distribution Width 13.3 % (11.8-14.3) Platelet Count 245 10^3/uL (140-450) Mean Platelet Volume 7.7 fL (6.9-10.8) Neutrophils (%) (Auto) 69.6 % (37.0-80.0) Lymphocytes (%) (Auto) 22.1 % (10.0-50.0) Monocytes (%) (Auto) 6.1 % (0.0-12.0) Eosinophils (%) (Auto) 1.6 % (0.0-7.0) Basophils (%) (Auto) 0.6 % (0.0-2.0) Neutrophils # (Auto) 3.9 10 ^3/uL (1.6-8.6) Lymphocytes # (Auto) 1.2 10 ^3/uL (0.4-5.4) Monocytes # (Auto) 0.3 10 ^3/uL (0-1.3) Eosinophils # (Auto) 0.1 10 ^3/uL (0-0.8) Basophils # (Auto) 0 10 ^3/uL (0-0.2) Nucleated Red Blood Cells 0.1 % Sodium Level 141 mmol/L (136-145) Potassium Level 3.9 mmol/L (3.5-5.1) Chloride Level 107 mmol/L (98-107) Carbon Dioxide Level 28 mmol/L (20-31) Anion Gap 6 (5-15) Blood Urea Nitrogen 12 mg/dL (9-23) Creatinine 1.01 mg/dL (0.700-1.30) Glomerular Filtration Rate Calc 78 mL/min (>90) BUN/Creatinine Ratio 11.9 (10.0-20.0) Serum Glucose 97 mg/dL (74-106) Calcium Level 9.5 mg/dL (8.7-10.4) Creatine Kinase 179 U/L (46-171) Urine Opiates Screen Neg (NEGATIVE) Urine Fentanyl Screen Neg (NEGATIVE) Urine Barbiturates Screen Neg (NEGATIVE) Urine Phencyclidine Screen Neg (NEGATIVE) Urine Amphetamines Screen Neg (NEGATIVE) Urine Benzodiazepines Screen Neg (NEGATIVE) Urine Cocaine Screen Neg (NEGATIVE) Urine Cannabinoids Screen Neg (NEGATIVE) Urine Color Light-yellow (Yellow) Urine Clarity Clear (Clear) Urine pH 5.5 (5.0-9.0) Urine Specific [place] 1.015 (1.001-1.035) Urine Protein Negative (Negative) Urine Ketones Negative (Negative) Urine Blood Negative /uL (Negative) Urine Nitrite Negative (Negative) Urine Bilirubin Negative (Negative) Urine Urobilinogen Normal mg/dL (Negative) Urine Leukocyte Esterase Trace /uL (Negative) Urine RBC <1 /hpf (0 - 3) Urine Microscopic WBC 2 /HPF (0-3) Urine Squamous Epithelial Cells Few /hpf (<5) Urine Bacteria None seen /hpf (None Seen) Urine Glucose Normal mg/dL (Normal) Test 11/16/24 21:49 11/16/24 04:45 11/15/24 23:58 11/15/24 03:30 Triglycerides Level 96 mg/dL (< 150) Cholesterol Level 216 mg/dL (< 200) LDL Cholesterol 163 mg/dL (< 100) HDL Cholesterol 33 mg/dL (40-59) Reticulocyte Count (auto) 1.25 % (0.5-1.5) Iron Level 63 ug/dL (65-175) Total Iron Binding Capacity 271 ug/dL (250-425) Percent Iron Saturation 23.2 % (20-55) Ferritin 200.0 ng/mL (22-322) Total Bilirubin 0.6 mg/dL (0.2-1.0) Aspartate Amino Transferase (AST) 15 U/L (13-40) Alanine Aminotransferase (ALT) 15 U/L (7-40) Alkaline Phosphatase 56 U/L (46-116) Total Protein 6.6 g/dL (5.7-8.2) Albumin 3.8 g/dL (3.2-4.8) Folic Acid 19.50 ng/mL (>5.38) Lactic Acid Level 1.7 mmol/L (0.4-2.0) Phosphorus Level 2.7 mg/dL (2.4-5.1) Magnesium Level 1.9 mg/dL (1.6-2.6) Vitamin B12 Level 308 pg/mL (211-911) Vitamin D 25-Hydroxy 19.2 ng/mL (30.0-100) Thyroid Stimulating Hormone (TSH) 0.64 uIU/mL (0.55-4.78) Troponin I High Sensitivity 65 ng/L (</=54) Test 11/15/24 03:16 11/15/24 00:25 Urine Uric Acid Crystals Few /hpf (None Seen) Urine Mucus Few (None Seen) Prothrombin Time 11.5 sec (9.3-11.8) Prothrombin Time INR 1.09 (0.9-1.15) Activated Partial Thromboplast Time 27.4 SEC (24.5-34.5) Hemoglobin A1c 5.0 % A1C (<5.7) B-Type Natriuretic Peptide 18.67 pg/mL (0-100) Other Laboratory Tests 11/19/24 06:18 Brief Hx & Hospital Course: History and physical Brent Hawkins is a 74-year-old male patient who presents to the ED with chief complaint of bilateral lower limb weakness (right greater than left) which started approximately 2-3 weeks ago, associated with multiple episodes of mechanical fall with head trauma, during one episode after falling he lost consciousness for an unknown amount of time. He was evaluated in the ED approximately one week ago with the same complaints, with discharge with no improvement of symptoms. Denies altered bowel or urinary symptoms, palpitation, syncope, chest pain, dyspnea, nausea, vomiting, diarrhea, sick contacts, recent travel, bleeding and other motor or sensory deficits. Past medical history: Hypertension, dyslipidemia, chronic lower back pain, osteoarthritis, prostate cancer (no surgeries nor chemotherapy), left inguinal hernia (no surgical treatment), anxiety Surgical history: Denies Family history: Sister recently had a stroke. Other sister from AIDS- related cancer Social history: Currently lives with a friend but he was kicked out of his house (he has never been homeless yet) as an older sister the lives in [facility] no younger sister that lives in [place]. Denies current tobacco, alcohol and other drug abuse Allergies: Denies Home medication: Tamsulosin, Lipitor and diazepam Brief hospital course In the E, patient told me he has pain in his right on ambulation and it has been ongoing for the past 2-3 weeks associated with loss of balance and fall. He denies trauma, stroke history or unilateral weakness. Patient is homeless and has not seen a provider for a while. He thinks he has a stroke and that is why is here. CT head did not reveal any new acute lesions. However, it shows mild cerebral volume loss and mild chronic microvascular ischemic change. 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 MRI brain showed Left occipital lobe encephalomalcia likely from an old infarct. Echocardiogram showed Ef: 50%. Right knee x-ray showed Severe tricompartmental degenerative changes. Small joint effusion. Patient was started on Tylenol, Toradol with plans for arthrocentesis today. He walk with PT as well. But patient left AMA this morning. Diagnoses Osteoarthritis with effusion right knee Hypertensive urgency NSTEMI probable type 2 Right knee pain Chronic low back pain Vitamin-D deficiency Dyslipidemia ? Prostate cancer VS prostate enlargement Left inguinal hernia Patient discussed with Dr. Lomas Consults/Reason for consult Reason for Consultation: Bilateral lower limb weakness three weeks Condition at Discharge: Undetermined Final Diagnosis/Problems List Hypertensive urgency NSTEMI probable type 2 Osteoarthritis Right knee pain Chronic low back pain Vitamin D deficiency Normocytic anemia Dyslipidemia Left inguinal hernia Discharge Disposition: AMA Discharge Statement: "Patient was advised to return to the ER or call 911 if any headaches, dizziness, shortness of breath, chest pain, abdominal pain, bleeding, fevers, or worsening of medical condition. Patient was counseled about treatment plan, medications, possible side effects, patientverbalized understanding. All questions were answered to the best of my ability. This discharge took greater then 30 minutes in planning, reviewing documentation, counseling the patient, and discussing with other team members." ASSESSMENT ASSESSMENT Assessment Date of Service: Nov 19, 2024 Billing Provider: SOIEL LOMAS MD Common Visit Codes: 38302-JHE/OBS DISCH DAY >30min CLARENCE SHARP RESIDENT Nov 19, 2024 19:09 OSIEL LOMAS MD Nov 20, 2024 20:19
== END 2024-11-19 08:52 | disposition left against medical advice (07) | DRG 91 ==
LOC: EDBD 23:39 → ER 23:39 → OVERFLOW 11-15 23:33 → TELE-WESTW 11-16 03:15 → WEST WING 11-18 18:21
PROVIDERS: ADMIT Student in an Organized Health Care Education/Training Program; ATTEND Student in an Organized Health Care Education/Training Program
DX: G83.84 Todd's paralysis (postepileptic) (principal); I21.A1 Myocardial infarction type 2; Z59.00 Homelessness unspecified; I16.0 Hypertensive urgency; I10 Essential (primary) hypertension; D64.9 Anemia, unspecified; E55.9 Vitamin D deficiency, unspecified; E78.5 Hyperlipidemia, unspecified; G89.4 Chronic pain syndrome; K40.90 Unilateral inguinal hernia, without obstruction or gangrene, not specified as recurrent; M54.50 Low back pain, unspecified; R26.9 Unspecified abnormalities of gait and mobility; Z79.82 Long term (current) use of aspirin; Z79.899 Other long term (current) drug therapy; Z82.49 Family history of ischemic heart disease and other diseases of the circulatory system; Z85.46 Personal history of malignant neoplasm of prostate; Z86.73 Personal history of transient ischemic attack (TIA), and cerebral infarction without residual deficits; Z88.6 Allergy status to analgesic agent
CPT/HCPCS: 36415; 70450; 70551; 73560; 80048; 80053; 80061; 80307; 81001; 82306; 82550; 82607; 82728; 82746; 83036; 83540; 83550; 83605; 83735; 83880; 84100; 84443; 84484; 85025; 85045; 85610; 85730; 93005; 93306; 93886; 97110; 97116; 97530; G0378

== ENCOUNTER 2024-11-19 21:21 | Inpatient (IN) | payer OTHER, MEDICAID ==
[~2024-11-19] VITALS: Ht 180.3 cm; Wt 95.3 kg
[~2024-11-19 21:21] MED LIST changes: +ATOR20TA PO; +DIAZ10TA3 PO; +DIPH25CA66 PO
--- NOTE | 2024-11-19 22:05 | ED.PDOC ---
History of Present Illness HPI Comments 74-year-old male presents with a chief complaint of lower extremity weakness. Patient was admitted for rule out CVA. Patient left AMA from being inpatient upstairs 2 hours ago to his appointment to obtain a food card. Patient is now back wanting to continue his care for right lower extremity weakness which he states it is still present. Time Seen by : 22:02 Primary Care Provider: NATALIYA Reviewed Notes: Medications, Allergies Allergies: Coded Allergies: Ibuprofen (Verified Allergy, Unknown, 09/30/23) Penicillins (Verified Allergy, Unknown, 01/26/23) Home Meds Active Scripts Acetaminophen (Acetaminophen) 500 Mg Tab, 500 MG PO Q4HP PRN, #30 TAB Prov:JUSTINO YEAGER PAC 10/27/24 Tamsulosin Hcl (Tamsulosin Hcl) 0.4 Mg Cap, 1 CAP PO DAILY, #30 CAP 5 Refills Prov:LYNDSEY HOSKINS MD 09/29/24 Hydrocodone-Acetaminophen (Hydrocodone/Acetaminophen 5-325 mg) 1 Tab Tab, 1 TAB PO BID for 7 Days, #14 TAB Prov:LYNDSEY HOSKINS MD 09/29/24 Hydrocodone-Acetaminophen (Hydrocodone Bitartrate/AC 5-325 mg) 1 Tab Tab, 1 TAB PO Q6HP PRN, #20 TAB Prov:ANNMARIE SCRUGGS MD 09/18/24 Tamsulosin HCl (Tamsulosin Hydrochloride) 0.4 Mg Cap, 0.4 MG PO DAILY@BREAKFAST for 30 Days, #30 CAP Prov:ZAIN HILTON MD 08/26/24 Albuterol Sulfate (Albuterol Sulfate Hfa) 108 Mcg/Act Aer, 108 MCG IN Q4HP PRN, #1 AER Prov:JUSTINO YEAGER PAC 06/29/24 Azithromycin (Azithromycin) 500 Mg Tab, 1 TAB PO DAILY for 5 Days, #5 TAB Prov:JUSTINO YEAGER PAC 06/29/24 Hydrocodone-Acetaminophen (Hydrocodone Bitartrate/AC 5-325 mg) 1 Tab Tab, 1 TAB PO BID, #10 TAB Prov:MIHAI SALAZAR 11/24/23 Hydrocodone-Acetaminophen (Hydrocodone Bitartrate/AC 5-325 mg) 1 Tab Tab, 1 TAB PO BID, #14 TAB Prov:MIHAI SALAZAR 10/29/23 Hydrocodone-Acetaminophen (Hydrocodone Bitartrate/AC 5-325 mg) 1 Tab Tab, 1 TAB PO Q8HP PRN, #25 TAB Prov:JUSTINO YEAGER PAC 09/30/23 Ibuprofen (Ibuprofen) 600 Mg Tab, 1 TAB PO TID, #90 TAB 1 Refill Prov:JUSTINO YEAGER PAC 09/30/23 Tamsulosin Hcl (Flomax) 0.4 Mg Cap, 1 CAP PO DAILY for 30 Days, #30 CAP 1 Refill Prov:JUSTINO YEAGER PAC 09/30/23 Benzonatate (Benzonatate) 200 Mg Cap, 1 CAP PO TID, #30 CAP Prov:MIHAI SALAZAR 08/20/23 Acetaminophen (Tylenol Extra Strength) 500 Mg Tab, 500 MG PO QID, #30 TAB Prov:MIHAI SALAZAR 08/20/23 Oseltamivir Phosphate (Tamiflu) 75 Mg Cap, 75 MG PO BID, #10 CAP Prov:MIHAI SALAZAR 08/20/23 Ibuprofen (Ibuprofen) 800 Mg Tab, 1 TAB PO TID, #30 TAB Prov:MARIETILAPAOLO BROWN 05/26/23 Ibuprofen (Ibuprofen) 600 Mg Tab, 1 TAB PO Q6HP PRN, #30 TAB Prov:JUSTINO YEAGER PAC 05/07/23 Tramadol Hcl (Tramadol Hcl) 50 Mg Tab, 50 MG PO Q8HP PRN, #10 TAB Prov:JUSTINO YEAGER [facility] 04/20/23 Docusate Sodium (Colace) 100 Mg Cap, 1 CAP PO BID for 5 Days, #10 CAP Prov:IVONNE JEFFERY MD 04/14/23 Hydrocodone-Acetaminophen (Hydrocodone Bitartrate/AC 5-325 mg) 1 Tab Tab, 1 TAB PO Q8HP PRN for 7 Days, #21 TAB Prov:ANNMARIE SCRUGGS MD 04/07/23 Acetaminophen W/ Codeine (Tylenol #4 W/Codeine) 1 Tab Tb, 1 TAB PO Q8HP PRN, #15 TAB Prov:JUSTINO YEAGER PAC 03/27/23 Acetaminophen (Tylenol Extra Strength) 500 Mg Tab, 500 MG PO BIDP PRN for 10 Days, #20 TAB 0 Refills Prov:ANASTACIA OWENS NP 02/21/23 Hydrocodone-Acetaminophen (Hydrocodone Bitartrate/AC 10-325 mg) 1 Tab Tab, 1 TAB PO Q4HP PRN, #15 TAB 0 Refills Prov:ELIANA GUDINO 01/15/23 Benzonatate (Tessalon Perles) 100 Mg Cap, 1 CAP PO TID PRN, #21 CAP Prov:MARIPOSA NESBITT 12/08/22 Tamsulosin Hcl (Flomax) 0.4 Mg Cap, 1 CAP PO DAILY, #30 CAP 11 Refills Prov:ANNMARIE SCRUGGS MD 12/06/22 Reported Medications Diphenhydramine Hcl (Benadryl Allergy) 25 Mg Cap, 1 CAP PO QPM, #30 CAP 1 Refill 11/16/24 Diazepam (Diazepam) 10 Mg Tab, 1 TAB PO BID, #60 TAB 11/16/24 Atorvastatin Calcium (Lipitor) 20 Mg Tab, 1 TAB PO DAILY, #90 TAB 1 Refill 11/16/24 Information Source: Patient Mode of Arrival: Ambulatory Severity: Moderate Timing: Days Duration: Since onset Prehospital treatment: None Vital Signs Vital Signs Date Time Temp Pulse Resp B/P (MAP) Pulse Ox O2 Delivery O2 Flow Rate FiO2 11/19/24 22:03 97.9 14 82 145/86 (105) 94 97.9 Physical Exam General: Awake, alert and oriented. No acute distress. Skin: Skin in warm, dry and intact without rashes or lesions. HEENT: The head is normocephalic and atraumatic. Conjunctivae are clear without exudates or hemorrhage. Sclera is non-icteric. Neck: Normal range of motion. No JVD. Cardiac: Regular rate Respiratory: No signs of respiratory distress. No Stridor. Extremities: Upper and lower extremities are atraumatic in appearance without deformity. Neurological: The patient is awake, alert and oriented to person, place, and time with normal speech. Speech is clear. There is no facial asymmetry. Positive right lower extremity extension and flexion weakness. Patient is able to ambulate. Psychiatric: Appropriate mood and affect. Good judgement and insight. Review of Systems: REVIEW OF SYSTEMS: No fever, no chills, or fatigue HEENT: No sore throat, no earache, no congestion, no neck pain. Cardiac: No chest pain. No palpitations. Lungs: No shortness of breath, no cough. GI: No nausea, no vomiting, no diarrhea, no constipation, no abdominal pain : No dysuria, frequency, or urgency. No hematuria. Musculoskeletal: No joint pain , no joint swelling, no extremity edema. Skin: No rash, no itching. Neuro: No headache, no dizziness, positive right lower extremity weakness Past Medical History PAST MEDICAL HISTORY: Arthritis, Cancer, High Lipids, HTN Surgical History: Denies all surgeries Family History Family History: Reviewed,noncontributory to illness, Unknown Social History Smoker: Non-Smoker Alcohol: Denies ETOH Use Drugs: Denies Drug Use Lives In: Homeless Was a procedure done? Was a procedure done?: No Differential Dx Considerations may include: CVA, musculoskeletal disorder, arthritis, other X-Ray, Labs, Meds, VS Vital Signs Date Time Temp Pulse Resp B/P (MAP) Pulse Ox O2 Delivery O2 Flow Rate FiO2 11/19/24 22:03 97.9 14 82 145/86 (105) 94 97.9 Lab Test 11/19/24 22:18 Range/Units White Blood Count 7.7 # 4.4-10.8 10^3/uL Red Blood Count 4.15 L 4.5-5.90 10^6/uL Hemoglobin 12.9 L 13.5-17.5 g/dL Hematocrit 39.8 L 41.0-53.0 % Mean Corpuscular Volume 95.8 80.0-100.0 fL Mean Corpuscular Hemoglobin 31.2 28.0-32.0 pg Mean Corpuscular Hemoglobin Concent 32.5 32.0-36.0 g/dL Red Cell Distribution Width 13.5 11.8-14.3 % Platelet Count 255 140-450 10^3/uL Mean Platelet Volume 7.5 6.9-10.8 fL Neutrophils (%) (Auto) 73.1 37.0-80.0 % Lymphocytes (%) (Auto) 19.7 10.0-50.0 % Monocytes (%) (Auto) 5.3 0.0-12.0 % Eosinophils (%) (Auto) 1.3 0.0-7.0 % Basophils (%) (Auto) 0.6 0.0-2.0 % Neutrophils # (Auto) 5.6 1.6-8.6 10 ^3/uL Lymphocytes # (Auto) 1.5 0.4-5.4 10 ^3/uL Monocytes # (Auto) 0.4 0-1.3 10 ^3/uL Eosinophils # (Auto) 0.1 0-0.8 10 ^3/uL Basophils # (Auto) 0 0-0.2 10 ^3/uL Nucleated Red Blood Cells 0.1 % Sodium Level 142 136-145 mmol/L Potassium Level 3.9 3.5-5.1 mmol/L Chloride Level 107 98-107 mmol/L Carbon Dioxide Level 26 20-31 mmol/L Anion Gap 9 5-15 Blood Urea Nitrogen 12 9-23 mg/dL Creatinine 0.99 0.700-1.30 mg/dL Glomerular Filtration Rate Calc 80 >90 mL/min BUN/Creatinine Ratio 12.1 10.0-20.0 Serum Glucose 92 74-106 mg/dL Calcium Level 9.8 8.7-10.4 mg/dL Total Bilirubin 0.3 0.2-1.0 mg/dL Aspartate Amino Transferase (AST) 17 13-40 U/L Alanine Aminotransferase (ALT) 17 7-40 U/L Alkaline Phosphatase 71 46-116 U/L Total Protein 7.4 5.7-8.2 g/dL Albumin 4.4 3.2-4.8 g/dL Time of 1ST Reevaluation: 22:32 Reevaluation 1ST: Unchanged Patient Education/Counseling: Other (Need for admission) Family Education/Counseling: No Family Present Departure 1 Departure Time of Disposition: 23:18 Impression: Primary Impression: Right leg weakness Additional Impression: Stroke-like symptom Disposition: ADMITTED INPATIENT Condition: Stable Comments Patient admitted for further treatment, evaluation and monitoring. Critical Care Note Critical Care Time?: No Stability Stability form required: No I personally scribed for RODDY GUIDRY MD ([email or web address]) on 11/19/24 at 22:05. Electronically submitted by Teofilo Colon [email or web address]). RODDY GUIDRY MD Nov 19, 2024 22:05
[2024-11-19 22:44] LABS: Basophils # (auto) 0 10 ^3/uL (0-0.2); Basophils % (auto) 0.6 % (0.0-2.0); Eosinophils # (auto) 0.1 10 ^3/uL (0-0.8); Eosinophils % (auto) 1.3 % (0.0-7.0); Hematocrit 39.8 % (41.0-53.0); Hemoglobin 12.9 g/dL (13.5-17.5); Lymphocytes # (auto) 1.5 10 ^3/uL (0.4-5.4); Lymphocytes % (auto) 19.7 % (10.0-50.0); Mean Corpuscular Hemoglobin 31.2 pg (28.0-32.0); Mean Corpuscular Hgb Conc. 32.5 g/dL (32.0-36.0); Mean Corpuscular Volume 95.8 fL (80.0-100.0); Monocytes # (auto) 0.4 10 ^3/uL (0-1.3); Monocytes % (auto) 5.3 % (0.0-12.0); Neutrophils # (auto) 5.6 10 ^3/uL (1.6-8.6); Neutrophils % (auto) 73.1 % (37.0-80.0); Nucleated Red Blood Cells % 0.1 %; Platelet Count (auto) 255 10^3/uL (140-450); Red Blood Cells 4.15 10^6/uL (4.5-5.90); Red Cell Distribution Width 13.5 % (11.8-14.3); White Blood Cell 7.7 10^3/uL (4.4-10.8)
[2024-11-19 22:45] LABS: Alanine Aminotransferase 17 U/L (7-40); Albumin 4.4 g/dL (3.2-4.8); Alkaline Phosphatase 71 U/L (46-116); Anion Gap 9 (5-15); Aspartate Aminotransferase 17 U/L (13-40); BUN/Creatinine Ratio 12.1 (10.0-20.0); Blood Urea Nitrogen 12 mg/dL (9-23); Calcium 9.8 mg/dL (8.7-10.4); Carbon Dioxide 26 mmol/L (20-31); Chloride 107 mmol/L (98-107); Glucose 92 mg/dL (74-106); Potassium 3.9 mmol/L (3.5-5.1); Sodium 142 mmol/L (136-145); Total Protein 7.4 g/dL (5.7-8.2)
[2024-11-19 22:46] LABS: Bilirubin, Total 0.3 mg/dL (0.2-1.0)
--- NOTE | 2024-11-19 23:22 | DVHHPRES ---
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 The chief complaint of his ER visit includes bilateral lower limb weakness (right greater than left) which started approximately 2-3 weeks ago, associated with multiple episodes of mechanical fall with head trauma, during one episode after falling he lost consciousness for an unknown amount of time. He was evaluated in the ED approximately one week ago with the same complaints, with discharge with no improvement of symptoms. Denies altered bowel or urinary symptoms, palpitation, syncope, chest pain, dyspnea, nausea, vomiting, diarrhea, sick contacts, recent travel, bleeding and other motor or sensory deficits. Past medical history: Hypertension, dyslipidemia, chronic lower back pain, osteoarthritis, prostate cancer (no surgeries nor chemotherapy), left inguinal hernia (no surgical treatment), anxiety Surgical history: Denies Family history: Sister recently had a stroke. Other sister from AIDS- related cancer Social history: Currently lives with a friend but he was kicked out of his house (he has never been homeless yet) as an older sister the lives in [facility] no younger sister that lives in [place]. Denies current tobacco, alcohol and other drug abuse Allergies: Denies Home medication: Tamsulosin, Lipitor and diazepam Patient seen and examined at bedside. Currently has no new complaints. Past Medical History Per HPI Past Surgical History Per HPI Family History Per HPI Past Social History Per HPI Review of Systems Review of Systems Per HPI Allergies: Coded Allergies: Ibuprofen (Verified Allergy, Unknown, 09/30/23) Penicillins (Verified Allergy, Unknown, 01/26/23) Exam Vital Signs Vital Signs Date Time Temp Pulse Resp B/P (MAP) Pulse Ox O2 Delivery O2 Flow Rate FiO2 11/19/24 22:03 97.9 14 82 145/86 (105) 94 97.9 Exam Patient lying in bed, in no acute distress General: Lucid, afebrile, mucosae are moist Cardiovascular: Normal S1 and S2. No murmurs, gallops or rubs Respiratory: Normal ventilation mechanics. Clear lung sounds on auscultation Abdomen: Soft, nontender, no organomegaly, normal bowel sounds MSK/skin: Mobilizes 4 limbs. Presents decreased strength in bilateral legs, predominantly right side. Skin is dry and warm Neurological: Oriented in 3 spheres. Bilateral lower limb weakness predominantly right side, no other motor no sensitive deficits. Pupils are isocoric and reactive Labs/Xrays Labs Test 11/19/24 22:18 Range/Units White Blood Count 7.7 # 4.4-10.8 10^3/uL Red Blood Count 4.15 L 4.5-5.90 10^6/uL Hemoglobin 12.9 L 13.5-17.5 g/dL Hematocrit 39.8 L 41.0-53.0 % Mean Corpuscular Volume 95.8 80.0-100.0 fL Mean Corpuscular Hemoglobin 31.2 28.0-32.0 pg Mean Corpuscular Hemoglobin Concent 32.5 32.0-36.0 g/dL Red Cell Distribution Width 13.5 11.8-14.3 % Platelet Count 255 140-450 10^3/uL Mean Platelet Volume 7.5 6.9-10.8 fL Neutrophils (%) (Auto) 73.1 37.0-80.0 % Lymphocytes (%) (Auto) 19.7 10.0-50.0 % Monocytes (%) (Auto) 5.3 0.0-12.0 % Eosinophils (%) (Auto) 1.3 0.0-7.0 % Basophils (%) (Auto) 0.6 0.0-2.0 % Neutrophils # (Auto) 5.6 1.6-8.6 10 ^3/uL Lymphocytes # (Auto) 1.5 0.4-5.4 10 ^3/uL Monocytes # (Auto) 0.4 0-1.3 10 ^3/uL Eosinophils # (Auto) 0.1 0-0.8 10 ^3/uL Basophils # (Auto) 0 0-0.2 10 ^3/uL Nucleated Red Blood Cells 0.1 % Sodium Level 142 136-145 mmol/L Potassium Level 3.9 3.5-5.1 mmol/L Chloride Level 107 98-107 mmol/L Carbon Dioxide Level 26 20-31 mmol/L Anion Gap 9 5-15 Blood Urea Nitrogen 12 9-23 mg/dL Creatinine 0.99 0.700-1.30 mg/dL Glomerular Filtration Rate Calc 80 >90 mL/min BUN/Creatinine Ratio 12.1 10.0-20.0 Serum Glucose 92 74-106 mg/dL Calcium Level 9.8 8.7-10.4 mg/dL Total Bilirubin 0.3 0.2-1.0 mg/dL Aspartate Amino Transferase (AST) 17 13-40 U/L Alanine Aminotransferase (ALT) 17 7-40 U/L Alkaline Phosphatase 71 46-116 U/L Total Protein 7.4 5.7-8.2 g/dL Albumin 4.4 3.2-4.8 g/dL Assessment/Plan Assessment/Plan Assessment: Ruled out acute CVA Hypertensive urgency NSTEMI probable type 2 Multiple mechanical falls Rule out focal seizure and Jesse's paralysis Vitamin-D deficiency Normocytic anemia Elevated CPK Dyslipidemia Prostate cancer versus prostatomegaly Osteoarthritis Chronic left knee and low back pain Left inguinal hernia 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 Optimizing medical therapy for hypertension. Patient was started on aspirin, and atorvastatin. CPK was elevated, but is downtrending Patient was living in a friend's house renting, but he is now homeless. social worker health services was consulted for home safety evaluation Replenish vitamin-D Admitted to [facility] (previously was admitted in telemetry, but ruled out acute stroke) Patient was evaluated by neurologist who suspect focal seizure and right leg weakness secondary to Jesse's paralysis. Had ordered EEG. We will reconsult neurology to complete EEG and finalize assessment Goals of care discussed with patient for over 18 minutes: Full code status (patient was never in hospice) Discussed plan with Dr. Sanford, patient and nurses: Completed neuroimaging which showed chronic changes, no acute intracranial findings. Reconsulted Neurology to complete EEG and assessment. PT on board. Consulted social media campaign manager for home safety evaluation. Plan discussed with: Patient, Other (Nurses) My Orders Orders - HARRISON JAY RESIDENT Procedure Category Date Status Time Admit ADMIT 11/19/24 Transmitted 23:20 Code Status CODE 11/19/24 Transmitted 23:20 Vital Signs RABIA 11/19/24 In Process 23:20 Review Orders With RABIA 11/19/24 In Process Adm. 23:20 Notify Of Changes RABIA 11/19/24 In Process From Base 23:20 Advance Directive RABIA 11/19/24 In Process 23:20 Patient Condition ORDERS 11/19/24 Transmitted 23:20 Allergies RABIA 11/19/24 In Process 23:20 Oxygen By Nasal RT 11/19/24 Transmitted Cannula 23:20 Stat Ekg For Chest RABIA 11/19/24 In Process Pain 23:20 Notify Md Of Changes RABIA 11/19/24 In Process From Base 23:20 Intake Rn For RABIA 11/19/24 In Process 24 Hours 23:20 Emergency Dysrhythmia RABIA 11/19/24 In Process Protocol 23:20 Rhythm Strips Once RABIA 11/19/24 In Process Every Shift 23:20 Date of Service: Nov 19, 2024 Billing Provider: JOHAN SANFORD MD Common Visit Codes: [id number] INP/OBS CARE (HIGH) Secondary Visit Codes: [id number] CARE PLAN 30 MINUTES HARRISON JAY RESIDENT Nov 19, 2024 23:22 JOHAN SANFORD MD Nov 20, 2024 10:33
[2024-11-20] MEDS: ASPirin 81 mg TAB PO ONE (01:39)
[2024-11-20] MEDS: ENOXAPARIN SOD 40 MG/0.4 ML SYRINGE SC ONE (01:40)
[2024-11-20 01:45] VITALS: PULSE 84; RESP 19; O2SAT 97
[2024-11-20] MEDS: ACETAMINOPHEN 500 MG TAB or CAP PO SCH (06:08)
[2024-11-20] MEDS: ERGOCALCIFEROL 50,000 UNIT(1.25MG) CAP PO SCH (10:00)
[2024-11-20] MEDS: ATORVASTATIN 20 MG TAB PO SCH (10:00)
[2024-11-20] MEDS: TAMSULOSIN HYDROCHLORIDE 0.4 MG CAP PO SCH (10:00)
[2024-11-20] MEDS: DOCUSATE SOD 100 MG CAP PO SCH (10:00)
--- NOTE | 2024-11-20 11:15 | DVHPNRES ---
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 The chief complaint of his ER visit includes bilateral lower limb weakness (right greater than left) which started approximately 2-3 weeks ago, associated with multiple episodes of mechanical fall with head trauma, during one episode after falling he lost consciousness for an unknown amount of time. He was evaluated in the ED approximately one week ago with the same complaints, with discharge with no improvement of symptoms. Denies altered bowel or urinary symptoms, palpitation, syncope, chest pain, dyspnea, nausea, vomiting, diarrhea, sick contacts, recent travel, bleeding and other motor or sensory deficits. Past medical history: Hypertension, dyslipidemia, chronic lower back pain, osteoarthritis, prostate cancer (no surgeries nor chemotherapy), left inguinal hernia (no surgical treatment), anxiety Surgical history: Denies Family history: Sister recently had a stroke. Other sister from AIDS- related cancer Social history: Currently lives with a friend but he was kicked out of his house (he has never been homeless yet) as an older sister the lives in [facility] no younger sister that lives in [place]. Denies current tobacco, alcohol and other drug abuse Allergies: Denies Home medication: Tamsulosin, Lipitor and diazepam Pn: 11/20/2024 Patient left AMA yesterday. Reported back to the ED in the evening for readmission. Prior to patient leaving [place], we had planed to arthrocentesis. He denies fever, chills or dysuria. Will continue current management with pain management or osteoarthritis Subjective Review of Systems Constitutional: Denies fever no chills no feeling of malaise HEENT: Denies headache, ear pain, ear discharges, conjunctivitis, nasal discharge throat pain Cardiovascular: Denies chest pain, palpitation, orthopnea, PND, or pedal edema Respiratory: Denies shortness of breath, cough cough, sputum production, hemoptysis, GI: Denies abdominal pain, nausea, vomiting, diarrhea, hematemesis, hematochezia, : Denies frequency, urgency, hematuria, Endocrine: Denies unintentional weight gain or weight loss, feeling of hot flashes, Lewis: Denies easy bruising, bleeding disorders, epistaxis Musculoskeletal: Denies joint pains, muscle aches Psych: No evidence of depression, caroline, suicidal ideation Objective vital signs Vital Sign Date Time Temp Pulse Resp B/P (MAP) Pulse Ox O2 Delivery O2 Flow Rate FiO2 11/20/24 07:04 98.2 11/20/24 06:10 72 16 159/84 (109) 97 11/20/24 01:45 Room Air* 0 21 medications Current Medications Medications Dose Ordered Sig/Madiha Route Start Time Stop Time Status Last Admin Dose Admin Acetaminophen 500 mg QID PO 11/20/24 06:00 11/20/24 06:08 500 MG Atorvastatin Calcium 20 mg DAILY PO 11/20/24 10:00 Docusate Sodium 100 mg BID PO 11/20/24 10:00 Acetaminophen/ Hydrocodone Bitart 1 tab Q4HP PRN PO 11/20/24 00:30 Tamsulosin HCl 0.4 mg DAILY PO 11/20/24 10:00 Aspirin 81 mg DAILY PO 11/21/24 10:00 Enoxaparin Sodium 40 mg DAILY SC 11/21/24 10:00 Ergocalciferol 50,000 unit Q7D PO 11/20/24 10:00 Examination General Appearance: Alert, Oriented X3, Cooperative, No acute distress HEENT: Atraumatic, PERRLA, EOMI, Mucous membrane moist/pink Respiratory: Clear to auscultation, Normal air movement Cardiovascular: Regular rate, Normal S1, Normal S2, No murmurs, no chest wall tenderness Abdominal: NO distention, no tenderness, bowel sounds present, no scars noted Extremities: Right knee tenderness/swelling Skin: No rashes, No breakdown, No significant lesion Neuro: anthalgic gait, Normal speech, Strength at 5/5 X4 ext, Normal tone, Sensation intact, Cranial nerves 3-12 NL, Reflexes 2+ Psych/Mental Status: Mental status NL, Mood NL laboratory and microbiology Laboratory Tests 11/19/24 22:18 Test 11/19/24 22:18 Range/Units Serum Glucose 92 74-106 mg/dL Problem List/Assessment/Plan Problem List/Assessment/Plan Assessment Osteoarthritis, right knee Hypertensive urgency Ruled out acute CVA NSTEMI probable type 2 Multiple mechanical falls Rule out focal seizure and Jesse's paralysis Vitamin-D deficiency Normocytic anemia Elevated CPK Dyslipidemia Prostate cancer versus prostatomegaly Chronic left knee and low back pain Left inguinal hernia 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 Patient was started on aspirin, and atorvastatin. CPK was elevated, but is downtrending. Hold atorvastatin Replenish vitamin-D Arthrocentesis tomorrow 11/20/2024 Admitted to [facility] (previously was admitted in telemetry, but ruled out acute stroke) Follow up neurology outpatient for EEG Patient was living in a friend's house renting, but he is now homeless. phlebotomy services representative was consulted for home safety evaluation Case and plan discuss + Dr. Mendenhall Plan discussed with: Patient Date of Service: Nov 20, 2024 Billing Provider: OSIEL MENDENHALL MD Common Visit Codes: [id number] INP/OBS CARE(HIGH) CLARENCE SHARP RESIDENT Nov 20, 2024 11:15 OSIEL MENDENHALL MD Nov 21, 2024 22:22
[2024-11-20] MEDS: HYDROcodone-ACET 10/325MG TAB PO PRN (14:17)
[2024-11-20 14:22] VITALS: PULSE 73; RESP 17; O2SAT 95
[2024-11-20] MEDS ORDERED: ACETAMINOPHEN 500 MG TAB or CAP PO PRN (15:45)
[2024-11-20] MEDS: LISINOPRIL 5 MG TAB PO ONE (16:19)
[2024-11-20 20:31] VITALS: BP 115/68; PULSE 68; RESP 20; TEMP 98.3; O2SAT 96
[2024-11-20 21:45] VITALS: BP 125/71; PULSE 68; RESP 18; TEMP 97.7; O2SAT 93
[2024-11-20] MEDS ORDERED: HYDROcodone-ACET 5/325MG TAB PO SCH (22:00)
[2024-11-20] MEDS ORDERED: DIAZEPAM PO SCH (22:00)
[2024-11-20] MEDS: diazePAM 5 MG TAB PO SCH (22:09)
[2024-11-20 22:39] VITALS: BP 125/71; PULSE 68; RESP 18; TEMP 97.7; O2SAT 93
[2024-11-20 22:58] VITALS: RESP 18; O2SAT 96
[2024-11-21] VITALS (9 sets, daily range): BP systolic 123–155; BP diastolic 73–92; PULSE 64–77; RESP 16–18; TEMP 97.8–98.2; O2SAT 94–98
[2024-11-21 07:16] LABS: Basophils # (auto) 0 10 ^3/uL (0-0.2); Basophils % (auto) 0.5 % (0.0-2.0); Eosinophils # (auto) 0.1 10 ^3/uL (0-0.8); Eosinophils % (auto) 1.9 % (0.0-7.0); Hematocrit 38.4 % (41.0-53.0); Hemoglobin 12.6 g/dL (13.5-17.5); Lymphocytes # (auto) 1.6 10 ^3/uL (0.4-5.4); Lymphocytes % (auto) 27.4 % (10.0-50.0); Mean Corpuscular Hgb Conc. 32.7 g/dL (32.0-36.0); Mean Corpuscular Volume 94.9 fL (80.0-100.0); Monocytes # (auto) 0.3 10 ^3/uL (0-1.3); Monocytes % (auto) 5.3 % (0.0-12.0); Neutrophils # (auto) 3.8 10 ^3/uL (1.6-8.6); Neutrophils % (auto) 64.9 % (37.0-80.0); Platelet Count (auto) 255 10^3/uL (140-450); Red Blood Cells 4.05 10^6/uL (4.5-5.90); Red Cell Distribution Width 13.5 % (11.8-14.3); White Blood Cell 5.9 10^3/uL (4.4-10.8)
[2024-11-21 07:27] LABS: Chloride 106 mmol/L (98-107); Potassium 3.9 mmol/L (3.5-5.1); Sodium 141 mmol/L (136-145)
[2024-11-21 07:28] LABS: Anion Gap 9 (5-15); Carbon Dioxide 26 mmol/L (20-31)
[2024-11-21 07:29] LABS: Calcium 9.4 mg/dL (8.7-10.4)
[2024-11-21 07:33] LABS: BUN/Creatinine Ratio 20.2 (10.0-20.0); Blood Urea Nitrogen 21 mg/dL (9-23); Glucose 99 mg/dL (74-106)
[2024-11-21 07:34] LABS: Magnesium 1.8 mg/dL (1.6-2.6)
[2024-11-21 07:36] LABS: Phosphorus 3.6 mg/dL (2.4-5.1)
[2024-11-21] MEDS: ASPirin 81 mg TAB PO SCH (09:10)
[2024-11-21] MEDS: LISINOPRIL 5 MG TAB PO SCH (09:10)
[2024-11-21] MEDS: ENOXAPARIN SOD 40 MG/0.4 ML SYRINGE SC SCH (10:00)
[2024-11-21] MEDS ORDERED: TAMSULOSIN HYDROCHLORIDE 0.4 MG CAP PO SCH (10:00)
--- NOTE | 2024-11-21 13:20 | DVHPNRES ---
Progress Note Date Seen: Nov 21, 2024 Resident Creating Document: CLARENCE SHARP RESIDENT Has the PT tested + for MRSA If YES, has PT been informed?: No Medical Necessity Reason Pt with a Central, PICC or Fol: No Medical Necessity Reason Brent Hawkins is a 74-year-old male patient who presents to the ED for re- evaluation of his bilateral leg weakness after leaving against medical advice (he had to hop picker something at his house). The chief complaint of his ER visit includes bilateral lower limb weakness (right greater than left) which started approximately 2-3 weeks ago, associated with multiple episodes of mechanical fall with head trauma, during one episode after falling he lost consciousness for an unknown amount of time. He was evaluated in the ED approximately one week ago with the same complaints, with discharge with no improvement of symptoms. Denies altered bowel or urinary symptoms, palpitation, syncope, chest pain, dyspnea, nausea, vomiting, diarrhea, sick contacts, recent travel, bleeding and other motor or sensory deficits. Past medical history: Hypertension, dyslipidemia, chronic lower back pain, osteoarthritis, prostate cancer (no surgeries nor chemotherapy), left inguinal hernia (no surgical treatment), anxiety Surgical history: Denies Family history: Sister recently had a stroke. Other sister from AIDS- related cancer Social history: Currently lives with a friend but he was kicked out of his house (he has never been homeless yet) as an older sister the lives in [facility] no younger sister that lives in [place]. Denies current tobacco, alcohol and other drug abuse Allergies: Denies Home medication: Tamsulosin, Lipitor and diazepam Pn: 11/20/2024 Patient left AMA yesterday. Reported back to the ED in the evening for readmission. Prior to patient leaving [place], we had planed to arthrocentesis. He denies fever, chills or dysuria. Will continue current management with pain management or osteoarthritis PN: 11/21/2024 Patient is seen and examined at the bedside. He has no complaint. No chills, fever or changes in his gait of right knee. I explained to the patient that he we would like to do arthrocentesis of the right knew. He patient agreed and wanted to proceed with the proceed. Now S/P arthrocentesis will small amount drained. sample sent for pathology. Subjective Review of Systems Constitutional: Denies fever no chills no feeling of malaise HEENT: Denies headache, ear pain, ear discharges, conjunctivitis, nasal discharge throat pain Cardiovascular: Denies chest pain, palpitation, orthopnea, PND, or pedal edema Respiratory: Denies shortness of breath, cough cough, sputum production, hemoptysis, GI: Denies abdominal pain, nausea, vomiting, diarrhea, hematemesis, hematochezia, : Denies frequency, urgency, hematuria, Endocrine: Denies unintentional weight gain or weight loss, feeling of hot flashes, Lewis: Denies easy bruising, bleeding disorders, epistaxis Musculoskeletal: Denies joint pains, muscle aches Psych: No evidence of depression, caroline, suicidal ideation Objective vital signs Vital Sign Date Time Temp Pulse Resp B/P (MAP) Pulse Ox O2 Delivery O2 Flow Rate FiO2 11/21/24 12:51 98.2 71 17 134/81 (98) 98 98.2 11/21/24 08:00 Room Air* 0 21 Total Intake and Output 11/20/24 11/20/24 11/21/24 15:00 23:00 07:00 Intake Total 200 ml Balance 200 ml medications Current Medications Medications Dose Ordered Sig/Madiha Route Start Time Stop Time Status Last Admin Dose Admin Acetaminophen 500 mg QID PO 11/20/24 06:00 11/21/24 11:57 500 MG Docusate Sodium 100 mg BID PO 11/20/24 10:00 11/21/24 09:09 100 MG Acetaminophen/ Hydrocodone Bitart 1 tab Q4HP PRN PO 11/20/24 00:30 11/20/24 21:06 1 TAB Tamsulosin HCl 0.4 mg DAILY PO 11/20/24 10:00 11/21/24 09:10 0.4 MG Aspirin 81 mg DAILY PO 11/21/24 10:00 11/21/24 09:10 81 MG Enoxaparin Sodium 40 mg DAILY SC 11/21/24 10:00 Ergocalciferol 50,000 unit Q7D PO 11/20/24 10:00 11/21/24 11:58 50,000 UNIT Patient Own Medication 1 cap TID PRN PO 11/20/24 15:45 Patient Own Medication 1 tab BID PO 11/20/24 22:00 UNV Lisinopril 5 mg DAILY PO 11/21/24 10:00 11/21/24 09:10 5 MG Diazepam 10 mg BID PO 11/20/24 22:00 11/21/24 10:03 10 MG Examination General Appearance: Alert, Oriented X3, Cooperative, No acute distress HEENT: Atraumatic, PERRLA, EOMI, Mucous membrane moist/pink Respiratory: Clear to auscultation, Normal air movement Cardiovascular: Regular rate, Normal S1, Normal S2, No murmurs, no chest wall tenderness Abdominal: NO distention, no tenderness, bowel sounds present, no scars noted Extremities: No clubbing, No cyanosis, No edema, Normal pulses, No tenderness/swelling Skin: No rashes, No breakdown, No significant lesion Neuro: Normal gait, Normal speech, Strength at 5/5 X4 ext, Normal tone, Sensation intact, Cranial nerves 3-12 NL, Reflexes 2+ Psych/Mental Status: Mental status NL, Mood NL laboratory and microbiology Laboratory Tests 11/21/24 06:27 Test 11/21/24 06:27 Range/Units Serum Glucose 99 74-106 mg/dL Problem List/Assessment/Plan Problem List/Assessment/Plan Assessment Osteoarthritis, right knee --> Multiple mechanical falls --> S/p arthrocentesis --> Very small sample drained --> Toradol 15mg once Hypertensive urgency --> Continue Lisinopril daily NSTEMI probable type 2 Rule out focal seizure and Jesse's paralysis --> Follow up neurology outpatient for EEG Vitamin-D deficiency --> Vitamin D 50,000 Normocytic anemia Dyslipidemia --> Hold atorvastatin --> CPK was elevated, but is downtrending. 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 Abebe Flores discussed with: Patient My Orders My Orders Orders - CLARENCE SHARP RESIDENT Procedure Category Date Status Time (Nf) Benzonatate PHA 11/20/24 In Process (Tessalon Perles) 15:45 Lisinopril Tablet PHA 11/21/24 In Process (Zestril Tablet) 10:00 Diazepam Tablet PHA 11/20/24 In Process (Valium Tablet) 22:00 2 Gm Sodium Diet DIET 11/20/24 Transmitted Dinner Mrsa Screen BEVERLY 11/21/24 In Process 06:19 Date of Service: Nov 21, 2024 Billing Provider: OSIEL MENDENHALL MD Common Visit Codes: [id number] INP/OBS CARE(HIGH) CLARENCE SHARP RESIDENT Nov 21, 2024 13:20 OSIEL MENDENHALL MD Nov 21, 2024 22:37
[2024-11-21] MEDS: LIDOCAINE 1% HCL (LOCAL ANESTH.) INJ 20ML MDV ID ONE (18:13)
--- NOTE | 2024-11-21 19:42 | DVHNC2 ---
Arthrocentesis Indication: Diagnostic Evaluation Procedure: Positioning, Sterile Preparation, Needle Injected into the joint: Lidocaine Location: Right Knee Fluid: Amount (very minimal, 5cc), Clear Informed consent obtained: Yes Risks/benefits/alt described: Yes Date of Service: Nov 21, 2024 Billing Provider: OSIEL MENDENHALL MD Common Visit Codes: PROCEDURE ONLY () JAUN SPANGLER RESIDENT Nov 21, 2024 19:42 OSIEL MENDENHALL MD Nov 21, 2024 22:39
[2024-11-21] MEDS: KETOROLAC TROMETH 30 MG/ML 1ML VIAL IV ONE (22:15)
[2024-11-22] VITALS (8 sets, daily range): BP systolic 91–152; BP diastolic 51–86; PULSE 54–95; RESP 16–20; TEMP 97.4–98; O2SAT 84–97
--- NOTE | 2024-11-22 15:35 | DVHPNRES ---
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 The chief complaint of his ER visit includes bilateral lower limb weakness (right greater than left) which started approximately 2-3 weeks ago, associated with multiple episodes of mechanical fall with head trauma, during one episode after falling he lost consciousness for an unknown amount of time. He was evaluated in the ED approximately one week ago with the same complaints, with discharge with no improvement of symptoms. Denies altered bowel or urinary symptoms, palpitation, syncope, chest pain, dyspnea, nausea, vomiting, diarrhea, sick contacts, recent travel, bleeding and other motor or sensory deficits. Past medical history: Hypertension, dyslipidemia, chronic lower back pain, osteoarthritis, prostate cancer (no surgeries nor chemotherapy), left inguinal hernia (no surgical treatment), anxiety Surgical history: Denies Family history: Sister recently had a stroke. Other sister from AIDS- related cancer Social history: Currently lives with a friend but he was kicked out of his house (he has never been homeless yet) as an older sister the lives in [facility] no younger sister that lives in [place]. Denies current tobacco, alcohol and other drug abuse Allergies: Denies Home medication: Tamsulosin, Lipitor and diazepam Pn: 11/20/2024 Patient left AMA yesterday. Reported back to the ED in the evening for readmission. Prior to patient leaving [place], we had planed to arthrocentesis. He denies fever, chills or dysuria. Will continue current management with pain management or osteoarthritis PN: 11/21/2024 Patient is seen and examined at the bedside. He has no complaint. No chills, fever or changes in his gait of right knee. I explained to the patient that he we would like to do arthrocentesis of the right knew. He patient agreed and wanted to proceed with the proceed. Now S/P arthrocentesis will small amount drained. sample sent for pathology. PN: 11/22/2024: Patient seen and examined with the team. He has no pain at the arthrocentesis site. Patient said he is doing fairly well. Currently pending pathology report. If negative cell count will give him steroid injection into the right. Subjective Review of Systems Constitutional: Denies fever no chills no feeling of malaise HEENT: Denies headache, ear pain, ear discharges, conjunctivitis, nasal discharge throat pain Cardiovascular: Denies chest pain, palpitation, orthopnea, PND, or pedal edema Respiratory: Denies shortness of breath, cough cough, sputum production, hemoptysis, GI: Denies abdominal pain, nausea, vomiting, diarrhea, hematemesis, hematochezia, : Denies frequency, urgency, hematuria, Endocrine: Denies unintentional weight gain or weight loss, feeling of hot flashes, Lewis: Denies easy bruising, bleeding disorders, epistaxis Musculoskeletal: Denies joint pains, muscle aches Psych: No evidence of depression, caroline, suicidal ideation Objective vital signs Vital Sign Date Time Temp Pulse Resp B/P (MAP) Pulse Ox O2 Delivery O2 Flow Rate FiO2 11/22/24 12:59 97.9 72 20 124/72 (89) 92 97.9 11/22/24 08:00 Room Air* 0 21 Total Intake and Output 11/21/24 11/21/24 11/22/24 15:00 23:00 07:00 Intake Total 600 ml 640 ml Output Total 500 ml Balance 600 ml 140 ml medications Current Medications Medications Dose Ordered Sig/Madiha Route Start Time Stop Time Status Last Admin Dose Admin Acetaminophen 500 mg QID PO 11/20/24 06:00 11/22/24 12:48 500 MG Docusate Sodium 100 mg BID PO 11/20/24 10:00 11/22/24 09:08 100 MG Acetaminophen/ Hydrocodone Bitart 1 tab Q4HP PRN PO 11/20/24 00:30 11/22/24 09:11 1 TAB Tamsulosin HCl 0.4 mg DAILY PO 11/20/24 10:00 11/22/24 09:00 0.4 MG Aspirin 81 mg DAILY PO 11/21/24 10:00 11/22/24 09:00 81 MG Enoxaparin Sodium 40 mg DAILY SC 11/21/24 10:00 Ergocalciferol 50,000 unit Q7D PO 11/20/24 10:00 11/21/24 11:58 50,000 UNIT Patient Own Medication 1 cap TID PRN PO 11/20/24 15:45 Patient Own Medication 1 tab BID PO 11/20/24 22:00 UNV Lisinopril 5 mg DAILY PO 11/21/24 10:00 11/22/24 09:01 5 MG Diazepam 10 mg BID PO 11/20/24 22:00 11/22/24 10:11 10 MG Examination General Appearance: Alert, Oriented X3, Cooperative, No acute distress HEENT: Atraumatic, PERRLA, EOMI, Mucous membrane moist/pink Respiratory: Clear to auscultation, Normal air movement Cardiovascular: Regular rate, Normal S1, Normal S2, No murmurs, no chest wall tenderness Abdominal: NO distention, no tenderness, bowel sounds present, no scars noted Extremities: No clubbing, No cyanosis, No edema, Normal pulses, No tenderness/swelling Skin: No rashes, No breakdown, No significant lesion Neuro: Normal gait, Normal speech, Strength at 5/5 X4 ext, Normal tone, Sensation intact, Cranial nerves 3-12 NL, Reflexes 2+ Psych/Mental Status: Mental status NL, Mood NL laboratory and microbiology Laboratory Tests 11/21/24 06:27 Test 11/21/24 06:27 Range/Units Serum Glucose 99 74-106 mg/dL Microbiology Date/Time Source Procedure Growth Status 11/21/24 18:45 Knee Fluid Right Gram Stain - Final Resulted 11/21/24 18:45 Knee Fluid Right Body Fluid Culture - Preliminary Resulted 11/21/24 06:15 Nose MRSA Screen - Final Complete Problem List/Assessment/Plan Problem List/Assessment/Plan Assessment Osteoarthritis, right knee --> Multiple mechanical falls --> S/p arthrocentesis --> Very small sample drained --> Toradol 15mg once --> Plan for steroid injection 11/23/2024 Hypertensive urgency --> Continue Lisinopril daily NSTEMI probable type 2 Rule out focal seizure and Jesse's paralysis --> Follow up neurology outpatient for EEG Vitamin-D deficiency --> Vitamin D 50,000 Normocytic anemia Dyslipidemia --> Hold atorvastatin --> CPK was elevated, but is downtrending. Hold atorvastatin --> N/S maintenance Dyslipidemia Prostate cancer versus prostatomegaly --> PSA get --> follow up with ru Prophylaxis: Patient refused Lovenox today. 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 Mendenhall Plan discussed with: Patient My Orders My Orders Orders - CLARENCE SHARP Procedure Category Date Status Time Body Fluid Culture W/ BEVERLY 11/21/24 In Process GS 18:42 Psa Total+% Free LAB 11/21/24 In Process 19:08 Date of Service: Nov 22, 2024 Billing Provider: OSIEL MENDENHALL MD Common Visit Codes: [id number] INP/OBS CARE(HIGH) CLARENCE SHARP Nov 22, 2024 15:34 OSIEL MENDENHALL MD Nov 22, 2024 20:48
[2024-11-22] MEDS: SODIUM CHLORIDE 0.9% 1,000 ML IV SCH (20:04)
[2024-11-23] VITALS (8 sets, daily range): BP systolic 124–152; BP diastolic 75–109; PULSE 62–82; RESP 17–20; TEMP 97–98.1; O2SAT 93–99
[2024-11-23 07:59] LABS: Basophils # (auto) 0 10 ^3/uL (0-0.2); Basophils % (auto) 0.6 % (0.0-2.0); Eosinophils # (auto) 0.1 10 ^3/uL (0-0.8); Eosinophils % (auto) 1.9 % (0.0-7.0); Hematocrit 38.1 % (41.0-53.0); Hemoglobin 12.9 g/dL (13.5-17.5); Lymphocytes # (auto) 1.3 10 ^3/uL (0.4-5.4); Lymphocytes % (auto) 22.6 % (10.0-50.0); Mean Corpuscular Hemoglobin 31.9 pg (28.0-32.0); Mean Corpuscular Hgb Conc. 33.8 g/dL (32.0-36.0); Mean Corpuscular Volume 94.6 fL (80.0-100.0); Monocytes # (auto) 0.4 10 ^3/uL (0-1.3); Monocytes % (auto) 7.6 % (0.0-12.0); Neutrophils # (auto) 3.8 10 ^3/uL (1.6-8.6); Neutrophils % (auto) 67.3 % (37.0-80.0); Nucleated Red Blood Cells % 0.1 %; Platelet Count (auto) 268 10^3/uL (140-450); Red Blood Cells 4.03 10^6/uL (4.5-5.90); Red Cell Distribution Width 14.1 % (11.8-14.3); White Blood Cell 5.6 10^3/uL (4.4-10.8)
[2024-11-23 08:06] LABS: PSA Free 0.3 ng/mL; Prostate Specific Antigen 1.5 ng/mL (0.0-4.0)
[2024-11-23 08:07] LABS: Chloride 106 mmol/L (98-107); Potassium 4.3 mmol/L (3.5-5.1); Sodium 142 mmol/L (136-145)
[2024-11-23 08:08] LABS: Anion Gap 7 (5-15); Calcium 9.7 mg/dL (8.7-10.4); Carbon Dioxide 29 mmol/L (20-31)
[2024-11-23 08:13] LABS: Blood Urea Nitrogen 15 mg/dL (9-23); Glucose 90 mg/dL (74-106)
[2024-11-23 08:14] LABS: Creatine Kinase IFCC 95 U/L (46-171)
[2024-11-23 08:26] LABS: BUN/Creatinine Ratio 14.6 (10.0-20.0)
[2024-11-23] MEDS: TRIAMCINOLONE 40MG/ML 1ML VIAL IX ONE ×2 (14:00→14:30)
[2024-11-23] MEDS: LIDOCAINE 1% HCL (LOCAL ANESTH.) INJ 20ML MDV IJ ONE (14:40)
--- NOTE | 2024-11-23 14:59 | DVHNC2 ---
Other Procedure Procedure Cortisone shot (Left Knee steroid injection) Indication Left knee osteoarthritis Anesthetic 1% Lidocaine Prep Antiseptic preparation with chlorhexidine Sterile Preparation, Needle Success Yes Informed consent obtained: Yes Risks, benefits, and alternati: Yes Notes Steroid procedure. Left knee cortisone shot. Supervised by DR. Mendenhall Date of Service: Nov 23, 2024 Billing Provider: OSIEL MENDENHALL MD Common Visit Codes: PROCEDURE ONLY CLARENCE SHARP RESIDENT Nov 23, 2024 14:59
[2024-11-23] MEDS ORDERED: KETOROLAC TROMETH 30 MG/ML 1ML VIAL IV PRN (15:00)
[2024-11-23] MEDS ORDERED: ACETAMINOPHEN 325 MG TAB PO PRN (15:00)
[2024-11-23] MEDS ORDERED: KETOROLAC TROMETH 30 MG/ML 1ML VIAL IV ONE (15:00)
[2024-11-23] MEDS: ACETAMINOPHEN 325 MG TAB PO ONE (15:05)
--- NOTE | 2024-11-23 15:08 | DVHNC2 ---
Arthrocentesis Indication: Pain Control, Intra-articular injection (Injected 1 mL of 40 mg of triamcinolone acetonide on each knee with 0.5 cc of lidocaine intra-articularly) Procedure: Sterile Preparation, Needle Injected into the joint: Lidocaine, Steroid Location: Right Knee, Left Knee Fluid: None Informed consent obtained: Yes Risks/benefits/alt described: Yes Date of Service: Nov 23, 2024 Billing Provider: OSIEL MENDENHALL MD Common Visit Codes: PROCEDURE ONLY JAUN SPANGLER RESIDENT Nov 23, 2024 15:08
[2024-11-23] MEDS: HYDROcodone-ACET 5/325MG TAB PO ONE (16:30)
[2024-11-23] MEDS: HYDROcodone-ACET 5/325MG TAB PO SCH (18:00)
--- NOTE | 2024-11-23 22:41 | DVHPNRES ---
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 The chief complaint of his ER visit includes bilateral lower limb weakness (right greater than left) which started approximately 2-3 weeks ago, associated with multiple episodes of mechanical fall with head trauma, during one episode after falling he lost consciousness for an unknown amount of time. He was evaluated in the ED approximately one week ago with the same complaints, with discharge with no improvement of symptoms. Denies altered bowel or urinary symptoms, palpitation, syncope, chest pain, dyspnea, nausea, vomiting, diarrhea, sick contacts, recent travel, bleeding and other motor or sensory deficits. Past medical history: Hypertension, dyslipidemia, chronic lower back pain, osteoarthritis, prostate cancer (no surgeries nor chemotherapy), left inguinal hernia (no surgical treatment), anxiety Surgical history: Denies Family history: Sister recently had a stroke. Other sister from AIDS- related cancer Social history: Currently lives with a friend but he was kicked out of his house (he has never been homeless yet) as an older sister the lives in [facility] no younger sister that lives in [place]. Denies current tobacco, alcohol and other drug abuse Allergies: Denies Home medication: Tamsulosin, Lipitor and diazepam Pn: 11/20/2024 Patient left AMA yesterday. Reported back to the ED in the evening for readmission. Prior to patient leaving [place], we had planed to arthrocentesis. He denies fever, chills or dysuria. Will continue current management with pain management or osteoarthritis PN: 11/21/2024 Patient is seen and examined at the bedside. He has no complaint. No chills, fever or changes in his gait of right knee. I explained to the patient that he we would like to do arthrocentesis of the right knew. He patient agreed and wanted to proceed with the proceed. Now S/P arthrocentesis will small amount drained. sample sent for pathology. PN: 11/22/2024: Patient seen and examined with the team. He has no pain at the arthrocentesis site. Patient said he is doing fairly well. Currently pending pathology report. If negative cell count will give him steroid injection into the right. PN: 11/23/2024: Patient is seen and examined today. He has no new complaints. Patient was ready for the the procedure to be done. Steiod shots into his knees bilateral. Procedure done under in a sterile environment. No complication noted afterwards. Patient was given pain medication after. Patient is currently being seen by social service for placement as patient is homeless. Subjective Review of Systems Constitutional: Denies fever no chills no feeling of malaise HEENT: Denies headache, ear pain, ear discharges, conjunctivitis, nasal discharge throat pain Cardiovascular: Denies chest pain, palpitation, orthopnea, PND, or pedal edema Respiratory: Denies shortness of breath, cough cough, sputum production, hemoptysis, GI: Denies abdominal pain, nausea, vomiting, diarrhea, hematemesis, hematochezia, : Denies frequency, urgency, hematuria, Endocrine: Denies unintentional weight gain or weight loss, feeling of hot flashes, Lewis: Denies easy bruising, bleeding disorders, epistaxis Musculoskeletal: Knee pains right greater than left Psych: No evidence of depression, caroline, suicidal ideation Objective vital signs Vital Sign Date Time Temp Pulse Resp B/P (MAP) Pulse Ox O2 Delivery O2 Flow Rate FiO2 11/23/24 17:00 97.9 75 18 152/83 (106) 96 97.9 11/23/24 08:00 Room Air* 0 21 Total Intake and Output 11/22/24 11/22/24 11/23/24 14:59 22:59 06:59 Intake Total 1150 ml Output Total 1100 ml Balance -1100 ml 1150 ml medications Current Medications Medications Dose Ordered Sig/Madiha Route Start Time Stop Time Status Last Admin Dose Admin Acetaminophen 500 mg QID PO 11/20/24 06:00 11/23/24 21:07 500 MG Docusate Sodium 100 mg BID PO 11/20/24 10:00 11/23/24 11:08 100 MG Acetaminophen/ Hydrocodone Bitart 1 tab Q4HP PRN PO 11/20/24 00:30 11/23/24 19:21 1 TAB Tamsulosin HCl 0.4 mg DAILY PO 11/20/24 10:00 11/23/24 11:07 0.4 MG Aspirin 81 mg DAILY PO 11/21/24 10:00 11/23/24 11:08 81 MG Enoxaparin Sodium 40 mg DAILY SC 11/21/24 10:00 11/23/24 11:07 40 MG Ergocalciferol 50,000 unit Q7D PO 11/20/24 10:00 11/21/24 11:58 50,000 UNIT Patient Own Medication 1 cap TID PRN PO 11/20/24 15:45 Patient Own Medication 1 tab BID PO 11/20/24 22:00 UNV Lisinopril 5 mg DAILY PO 11/21/24 10:00 11/23/24 11:08 5 MG Diazepam 10 mg BID PO 11/20/24 22:00 11/23/24 21:07 10 MG Sodium Chloride 1,000 ml @ 75 mls/hr [id number] IV 11/22/24 15:30 11/22/24 20:04 75 MLS/HR Acetaminophen 650 mg Q6HP PRN PO 11/23/24 15:00 Acetaminophen/ Hydrocodone Bitart 1 tab Q6HPRN PO 11/23/24 18:00 Examination Constitutional: Denies fever no chills no feeling of malaise HEENT: Denies headache, ear pain, ear discharges, conjunctivitis, nasal discharge throat pain Cardiovascular: Denies chest pain, palpitation, orthopnea, PND, or pedal edema Respiratory: Denies shortness of breath, cough cough, sputum production, hemoptysis, GI: Denies abdominal pain, nausea, vomiting, diarrhea, hematemesis, hematochezia, : Denies frequency, urgency, hematuria, Endocrine: Denies unintentional weight gain or weight loss, feeling of hot flashes, Lewis: Denies easy bruising, bleeding disorders, epistaxis Musculoskeletal:limited morbility due to knee pain. R> L. s/p steroid injection in both knees Psych: No evidence of depression, caroline, suicidal ideation laboratory and microbiology Laboratory Tests 11/23/24 05:55 Test 11/23/24 05:55 Range/Units Serum Glucose 90 74-106 mg/dL Microbiology Date/Time Source Procedure Growth Status 11/21/24 18:45 Knee Fluid Right Gram Stain - Final Resulted 11/21/24 18:45 Knee Fluid Right Body Fluid Culture - Preliminary Resulted 11/21/24 06:15 Nose MRSA Screen - Final Complete Problem List/Assessment/Plan Problem List/Assessment/Plan Assessment Osteoarthritis, right knee --> Multiple mechanical falls --> S/p arthrocentesis --> Very small sample drained --> Toradol 15mg once --> S/P steroid injection 11/23/2024 Hypertensive urgency --> Continue Lisinopril daily NSTEMI probable type 2 Rule out focal seizure and Jesse's paralysis --> Follow up neurology outpatient for EEG Vitamin-D deficiency --> Vitamin D 50,000 Normocytic anemia Dyslipidemia --> Hold atorvastatin --> CPK was elevated, but is downtrending. Hold atorvastatin --> N/S maintenance Dyslipidemia Prostate cancer versus prostatomegaly --> PSA 20 -->Patient to follow up with urologist outpatient Prophylaxis: Patient refused Lovenox today. 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 Lomas Plan discussed with: Patient My Orders My Orders Orders - CLARENCE SHARP RESIDENT Procedure Category Date Status Time Acetaminophen Tablet PHA 11/23/24 In Process (Tylenol Tablet) 15:00 * Care Coordinator CONS 11/23/24 Transmitted Consult Hydrocodone-Acet PHA 11/23/24 In Process 5/325mg Tab ([place] 18:00 Dietary Evaluation Review Comments: 2 g sodium diet. Monitor PO intake to meet 75% of his needs Expected Outcomes/Goals: maintain wt CLARENCE SHARP RESIDENT Nov 23, 2024 22:40
[2024-11-24] VITALS (8 sets, daily range): BP systolic 91–142; BP diastolic 52–80; PULSE 70–81; RESP 16–20; TEMP 97.4–98.8; O2SAT 95–99
--- NOTE | 2024-11-24 12:54 | DVHPN2 ---
Subjective The patient is seen and examined at bedside. Still complain of knee pain. Reviewed: Care Plan, H&P, Labs, Medications, Previous Orders, Radiology Changes from previous H/P or p: No Changes General: Per HPI Objective Vitals Vital Signs Date Time Temp Pulse Resp B/P (MAP) Pulse Ox O2 Delivery O2 Flow Rate FiO2 11/24/24 09:33 134/74 11/24/24 08:37 98.0 72 17 95 98.0 11/24/24 08:00 Room Air* 0 21 Intake/Output Intake and Output 11/24/24 07:00 Intake Total 890 ml Output Total 1300 ml Balance -410 ml Intake Oral 890 ml Output Urine Total 1300 ml # Voids 3 General Appearance: Alert, Oriented X3, Cooperative, No acute distress HEENT: Atraumatic, PERRLA, EOMI, Mucous membr. moist/pink Neck: Supple Lungs: Clear to auscultation, Normal air movement Cardiovascular: Regular rate, Normal S1, Normal S2, No murmurs, Gallops, Rubs Abdomen: Normal bowel sounds, Soft, No tenderness Neuro: Cranial nerves 3-12 NL Psych/Mental Status: Mental status NL Medications Current Medications Medications Dose Ordered Sig/Madiha Route Start Time Stop Time Status Last Admin Dose Admin Acetaminophen 500 mg QID PO 11/20/24 06:00 11/24/24 06:44 500 MG Docusate Sodium 100 mg BID PO 11/20/24 10:00 11/24/24 09:33 100 MG Acetaminophen/ Hydrocodone Bitart 1 tab Q4HP PRN PO 11/20/24 00:30 11/24/24 11:12 1 TAB Tamsulosin HCl 0.4 mg DAILY PO 11/20/24 10:00 11/24/24 09:32 0.4 MG Aspirin 81 mg DAILY PO 11/21/24 10:00 11/24/24 09:33 81 MG Enoxaparin Sodium 40 mg DAILY SC 11/21/24 10:00 11/23/24 11:07 40 MG Ergocalciferol 50,000 unit Q7D PO 11/20/24 10:00 11/21/24 11:58 50,000 UNIT Patient Own Medication 1 cap TID PRN PO 11/20/24 15:45 Patient Own Medication 1 tab BID PO 11/20/24 22:00 UNV Lisinopril 5 mg DAILY PO 11/21/24 10:00 11/24/24 09:33 5 MG Diazepam 10 mg BID PO 11/20/24 22:00 11/24/24 09:33 10 MG Sodium Chloride 1,000 ml @ 75 mls/hr [id number] IV 11/22/24 15:30 11/22/24 20:04 75 MLS/HR Acetaminophen 650 mg Q6HP PRN PO 11/23/24 15:00 Acetaminophen/ Hydrocodone Bitart 1 tab Q6HPRN PO 11/23/24 18:00 Hold 11/24/24 06:44 1 TAB Atorvastatin Calcium 20 mg HS PO 11/24/24 22:00 Laboratory Results Laboratory Tests 11/23/24 05:55 Microbiology Microbiology Date/Time Source Procedure Growth Status 11/21/24 18:45 Knee Fluid Right Gram Stain - Final Resulted 11/21/24 18:45 Knee Fluid Right Body Fluid Culture - Preliminary Resulted 11/21/24 06:15 Nose MRSA Screen - Final Complete Labs and/or images reviewed: Labs reviewed by me Assessment/Plan Assessment/Plan Osteoarthritis, right knee --> Multiple mechanical falls --> S/p arthrocentesis --> Very small sample drained --> Toradol 15mg once --> Plan for steroid injection 11/23/2024 Hypertensive urgency --> Continue Lisinopril daily NSTEMI probable type 2 Rule out focal seizure and Jesse's paralysis --> Follow up neurology outpatient for EEG Vitamin-D deficiency --> Vitamin D 50,000 Normocytic anemia Dyslipidemia --> Hold atorvastatin --> CPK was elevated, but is downtrending. Hold atorvastatin --> N/S maintenance Dyslipidemia Prostate cancer versus prostatomegaly --> PSA get --> follow up with ru Prophylaxis: Patient refused Lovenox today. 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 Although this document has been carefully reviewed, there may still be some phonetic and typographical errors. These areas are purely typographical due to imperfections of the software programs, and do not reflect any compromise in the patient's medical care. Plan discussed with: Patient Date of Service: Nov 24, 2024 Billing Provider: SALTY SCHILLING MD Common Visit Codes: [id number] INP/OBS CARE(HIGH) SALTY SCHILLING MD Nov 24, 2024 12:54
[2024-11-24] MEDS: ATORVASTATIN 20 MG TAB PO SCH (21:45)
[2024-11-25] VITALS (7 sets, daily range): BP systolic 92–124; BP diastolic 57–76; PULSE 70–80; RESP 17–20; TEMP 97.5–98.7; O2SAT 96–98
[2024-11-25] MEDS: HYDROcodone-ACET 5/325MG TAB PO PRN (10:25)
--- NOTE | 2024-11-25 17:13 | DVHDSRES ---
Discharge Summary Date of Admission Resident Creating Document: CLARENCE SHARP RESIDENT Nov 19, 2024 at 23:20 Date of Discharge: Nov 25, 2024 Admitting Diagnosis Right leg pain Rule out CVA Labs/Diagnostic Data: Laboratory Results Test 11/23/24 05:55 11/21/24 06:27 11/19/24 22:18 White Blood Count 5.6 10^3/uL (4.4-10.8) Red Blood Count 4.03 10^6/uL (4.5-5.90) Hemoglobin 12.9 g/dL (13.5-17.5) Hematocrit 38.1 % (41.0-53.0) Mean Corpuscular Volume 94.6 fL (80.0-100.0) Mean Corpuscular Hemoglobin 31.9 pg (28.0-32.0) Mean Corpuscular Hemoglobin Concent 33.8 g/dL (32.0-36.0) Red Cell Distribution Width 14.1 % (11.8-14.3) Platelet Count 268 10^3/uL (140-450) Mean Platelet Volume 7.9 fL (6.9-10.8) Neutrophils (%) (Auto) 67.3 % (37.0-80.0) Lymphocytes (%) (Auto) 22.6 % (10.0-50.0) Monocytes (%) (Auto) 7.6 % (0.0-12.0) Eosinophils (%) (Auto) 1.9 % (0.0-7.0) Basophils (%) (Auto) 0.6 % (0.0-2.0) Neutrophils # (Auto) 3.8 10 ^3/uL (1.6-8.6) Lymphocytes # (Auto) 1.3 10 ^3/uL (0.4-5.4) Monocytes # (Auto) 0.4 10 ^3/uL (0-1.3) Eosinophils # (Auto) 0.1 10 ^3/uL (0-0.8) Basophils # (Auto) 0 10 ^3/uL (0-0.2) Nucleated Red Blood Cells 0.1 % Sodium Level 142 mmol/L (136-145) Potassium Level 4.3 mmol/L (3.5-5.1) Chloride Level 106 mmol/L (98-107) Carbon Dioxide Level 29 mmol/L (20-31) Anion Gap 7 (5-15) Blood Urea Nitrogen 15 mg/dL (9-23) Creatinine 1.03 mg/dL (0.700-1.30) Glomerular Filtration Rate Calc 76 mL/min (>90) BUN/Creatinine Ratio 14.6 (10.0-20.0) Serum Glucose 90 mg/dL (74-106) Calcium Level 9.7 mg/dL (8.7-10.4) Creatine Kinase 95 U/L (46-171) Phosphorus Level 3.6 mg/dL (2.4-5.1) Magnesium Level 1.8 mg/dL (1.6-2.6) Free Prostate Specific Antigen 0.30 ng/mL (N/A) Percent Free Prostate Specific Ag 20.0 % (.) Prostate Specific Antigen Total 1.5 ng/mL (0.0-4.0) Total Bilirubin 0.3 mg/dL (0.2-1.0) Aspartate Amino Transferase (AST) 17 U/L (13-40) Alanine Aminotransferase (ALT) 17 U/L (7-40) Alkaline Phosphatase 71 U/L (46-116) Total Protein 7.4 g/dL (5.7-8.2) Albumin 4.4 g/dL (3.2-4.8) Other Laboratory Tests 11/23/24 05:55 Brief Hx & Hospital Course: History of present illness Brent Hawkins is a 74-year-old male patient who presents to the ED for re- evaluation of his bilateral leg weakness after leaving against medical advice (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 The chief complaint of his ER visit includes bilateral lower limb weakness (right greater than left) which started approximately 2-3 weeks ago, associated with multiple episodes of mechanical fall with head trauma, during one episode after falling he lost consciousness for an unknown amount of time. He was evaluated in the ED approximately one week ago with the same complaints, with discharge with no improvement of symptoms. Denies altered bowel or urinary symptoms, palpitation, syncope, chest pain, dyspnea, nausea, vomiting, diarrhea, sick contacts, recent travel, bleeding and other motor or sensory deficits. Past medical history: Hypertension, dyslipidemia, chronic lower back pain, osteoarthritis, prostate cancer (no surgeries nor chemotherapy), left inguinal hernia (no surgical treatment), anxiety Surgical history: Denies Family history: Sister recently had a stroke. Other sister from AIDS- related cancer Social history: Currently lives with a friend but he was kicked out of his house (he has never been homeless yet) as an older sister the lives in [facility], one younger sister that lives in [place]. Denies current tobacco, alcohol and other drug abuse; Denies allergies Home medication: Tamsulosin, Lipitor and diazepam Brief Hospital course We had planned to do arthrocentesis, but the patient had left AMA just for him to return on on 11/19/2024 to the ED.All imaging studies were from the previous admission. Stroke ruled out. During this hospital stay, we performed arthrocentesis and took the sample to pathology for cell count. it did not grow any after two days and we ruled out septic knee. Patient received steroid shot in both knees without any complications. He has been feeling pretty good post injection. He denies fever, chills or dysuria. His PSA was elevated.Patient has been advised to follow up with the urology outpatient monitory and intervention if needed. Also, patient is currently homeless. employee services manager have been able to secure a place for him to go to after discharge. Overall, Patient in good health is discharged today. Review of systems Constitutional: Denies fever no chills no feeling of malaise HEENT: Denies headache, ear pain, ear discharges, conjunctivitis, nasal discharge throat pain Cardiovascular: Denies chest pain, palpitation, orthopnea, PND, or pedal edema Respiratory: Denies shortness of breath, cough cough, sputum production, hemoptysis, GI: Denies abdominal pain, nausea, vomiting, diarrhea, hematemesis, hematochezia, : Denies frequency, urgency, hematuria, Endocrine: Denies unintentional weight gain or weight loss, feeling of hot flashes, Lewis: Denies easy bruising, bleeding disorders, epistaxis Musculoskeletal: Denies joint pains, muscle aches Psych: No evidence of depression, caroline, suicidal ideation Examination General Appearance: Alert, Oriented X3, Cooperative, No acute distress HEENT: Atraumatic, PERRLA, EOMI, Mucous membrane moist/pink Respiratory: Clear to auscultation, Normal air movement Cardiovascular: Regular rate, Normal S1, Normal S2, No murmurs, no chest wall tenderness Abdominal: NO distention, no tenderness, bowel sounds present, no scars noted Extremities: No clubbing, No cyanosis, No edema, Normal pulses, No tenderness/swelling Skin: No rashes, No breakdown, No significant lesion Neuro: Normal gait, Normal speech, Strength at 5/5 X4 ext, Normal tone, Sensation intact, Cranial nerves 3-12 NL, Reflexes 2+ Psych/Mental Status: Mental status NL, Mood NL Diagnoses Osteoarthritis, right knee s/p bilateral steroid injection 11/23/2024 Hypertensive urgency NSTEMI probable type 2 Rule out focal seizure and Jesse's paralysis Vitamin-D deficiency Normocytic anemia Dyslipidemia Dyslipidemia Prostate cancer versus prostatomegaly, PSA high Left inguinal hernia 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 Patient was counseled about treatment plan, medications, possible side effects, patientverbalized understanding. All questions were answered to the best of my ability. 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
== END 2024-11-25 21:50 | disposition home or self-care (01) | DRG 553 ==
LOC: ER 21:27 → OVERFLOW 23:20 → CENTRAL 11-20 22:39
PROVIDERS: ADMIT Internal Medicine; ATTEND Internal Medicine
PROC: 0S9C3ZX Drainage of Right Knee Joint, Percutaneous Approach, Diagnostic (ICD-10-PCS; principal; 2024-11-21)
PROC: 3E0U33Z Introduction of Anti-inflammatory into Joints, Percutaneous Approach (ICD-10-PCS; 2024-11-23)
PROC: 3E0U3BZ Introduction of Anesthetic Agent into Joints, Percutaneous Approach (ICD-10-PCS; 2024-11-23)
PROC: 3E0U33Z Introduction of Anti-inflammatory into Joints, Percutaneous Approach (ICD-10-PCS; 2024-11-23)
PROC: 3E0U3BZ Introduction of Anesthetic Agent into Joints, Percutaneous Approach (ICD-10-PCS; 2024-11-23)
DX: M17.0 Bilateral primary osteoarthritis of knee (principal); I21.A1 Myocardial infarction type 2; Z59.00 Homelessness unspecified; G83.84 Todd's paralysis (postepileptic); I16.0 Hypertensive urgency; K40.90 Unilateral inguinal hernia, without obstruction or gangrene, not specified as recurrent; D64.9 Anemia, unspecified; I10 Essential (primary) hypertension; E78.5 Hyperlipidemia, unspecified; E55.9 Vitamin D deficiency, unspecified; G89.29 Other chronic pain; C61 Malignant neoplasm of prostate; Z86.73 Personal history of transient ischemic attack (TIA), and cerebral infarction without residual deficits; Z88.3 Allergy status to other anti-infective agents; Z88.0 Allergy status to penicillin; Z79.1 Long term (current) use of non-steroidal anti-inflammatories (NSAID); Z79.899 Other long term (current) drug therapy; N40.0 Benign prostatic hyperplasia without lower urinary tract symptoms
CPT/HCPCS: 20610; 36415; 80048; 80053; 82550; 83735; 84100; 84154; 85025; 87081; 87205; 97110; 97116; 97163; 97530; G0378; J2003

== ENCOUNTER 2024-12-21 13:15 | Emergency (ER) | payer OTHER, MEDICAID ==
[~2024-12-21] VITALS: Ht 172.7 cm; Wt 90.0 kg
[~2024-12-21 13:15] MED LIST changes: -ACET300T58 PO; -ACET500T58 PO; -AZIT500T66 PO; -BENZ200C64 PO; -HYDR1TAB97 PO; -IBUP-1454 PO; -IBUP-1456 PO; -TAMIFLU PO; -TAMS0.4C39 PO; -TAMS1CAP25 PO; -TRAM50TA2 PO
[2024-12-21 14:32] LABS: Urine Bacteria None Seen /hpf (None Seen)
--- NOTE | 2024-12-21 14:37 | ED.PDOC ---
History of Present Illness HPI Comments 74 year old male presents to the ED via EMS with a chief complaint of difficulty urinating onset 3 weeks. PMHx enlarged prostate, HTN, HLD, cancer. Patient states he ran out of Flomax medication about 3 weeks ago, since then has been experiencing difficulty urinating. Last void was 2 hours ago. Denies chest pain, hematuria, fever, chills, headache, dizziness, nausea, vomiting, abdominal pain. no other symptoms or modifying factors present at this time. Chief Complaint: Urinary Time Seen by MD: 14:28 Primary Care Provider: NATALIYA Reviewed Notes: Medications, Allergies Allergies: Coded Allergies: Ibuprofen (Verified Allergy, Unknown, 09/30/23) Penicillins (Verified Allergy, Unknown, 01/26/23) Home Meds Active Scripts Albuterol Sulfate (Albuterol Sulfate Hfa) 108 Mcg/Act Aer, 108 MCG IN Q4HP PRN, #1 AER Prov:JUSTINO YEAGER PAC 06/29/24 Hydrocodone-Acetaminophen (Hydrocodone Bitartrate/AC 5-325 mg) 1 Tab Tab, 1 TAB PO BID, #10 TAB Prov:MIHAI SALAZAR 11/24/23 Acetaminophen (Tylenol Extra Strength) 500 Mg Tab, 500 MG PO QID, #30 TAB Prov:MIHAI SALAZAR 08/20/23 Docusate Sodium (Colace) 100 Mg Cap, 1 CAP PO BID for 5 Days, #10 CAP Prov:IVONNE JEFFERY MD 04/14/23 Hydrocodone-Acetaminophen (Hydrocodone Bitartrate/AC 10-325 mg) 1 Tab Tab, 1 TAB PO Q4HP PRN, #15 TAB 0 Refills Prov:ELIANA GUDINO 01/15/23 Benzonatate (Tessalon Perles) 100 Mg Cap, 1 CAP PO TID PRN, #21 CAP Prov:MARIPOSA NESBITT 12/08/22 Tamsulosin Hcl (Flomax) 0.4 Mg Cap, 1 CAP PO DAILY, #30 CAP 11 Refills Prov:ANNMARIE SCRUGGS MD 12/06/22 Reported Medications Losartan Potassium (Losartan Potassium) 25 Mg Tab, 1 TAB PO DAILY for 30 Days, #30 11/21/24 Diphenhydramine Hcl (Benadryl Allergy) 25 Mg Cap, 1 CAP PO QPM, #30 CAP 1 Refill 11/16/24 Diazepam (Diazepam) 10 Mg Tab, 1 TAB PO BID, #60 TAB 11/16/24 Atorvastatin Calcium (Lipitor) 20 Mg Tab, 1 TAB PO DAILY, #90 TAB 1 Refill 11/16/24 Information Source: Patient Mode of Arrival: EMS Severity: Moderate Timing: Weeks Duration: Since onset Prehospital treatment: None Medication Refill: Ran out of Medication, For: Other (flomax) Past Medical History PAST MEDICAL HISTORY: Arthritis, Cancer, High Lipids, HTN Past Medical History (Other): enlarged prostate Surgical History: Denies all surgeries Family History Family History: Reviewed,noncontributory to illness, Unknown Social History Smoker: Non-Smoker Alcohol: Denies ETOH Use Drugs: Denies Drug Use Lives In: Homeless Constitutional: denies: chills, diaphoresis, fatigue, fever, malaise, sweats, weakness, others EENTM: denies: blurred vision, double vision, ear bleeding, ear discharge, ear drainage, ear pain, ear ringing, eye pain, eye redness, hearing loss, mouth pain, mouth swelling, nasal discharge, nose bleeding, nose congestion, nose pain, photophobia, tearing, throat pain, throat swelling, voice changes, others Respiratory: denies: cough, hemoptysis, orthopnea, SOB at rest, shortness of breath, SOB with excertion, stridor, wheezing, others Cardiovascular: denies: chest pain, dizzy spells, diaphoresis, Dyspnea on exertion, edema, irregular heart beat, left arm pain, lightheadedness, palpitations, PND, syncope, others Gastrointestinal: denies: abdomen distended, abdominal pain, blood streaked bowels, constipated, diarrhea, dysphagia, difficulty swallowing, hematemesis, melena, nausea, poor appetite, poor fluid intake, rectal bleeding, rectal pain, vomiting, others Genitourinary: reports: others (difficulty urinating); denies: burning, dysuria, flank pain, frequency, hematuria, incontinence, penile discharge, penile sore, pain, testicle pain, testicle swelling, urgency Neurological: denies: dizziness, fainting, headache, left sided numbness, left sided weakness, numbness, paresthesia, pre-existing deficit, right sided numbness, right sided weakness, seizure, speech problems, tingling, tremors, weakness, others Musculoskeletal: denies: back pain, gout, joint pain, joint swelling, muscle pain, muscle stiffness, neck pain, others Integumetry: denies: bruises, change in color, change in hair/nails, dryness, laceration, lesions, lumps, rash, wounds, others Allergic/Immunocompromised: denies: Difficulty Healing, Frequent Infections, Hives, Itching, others Hematologic/Lymphatic: denies: anemia, blood clots, easy bleeding, easy bruising, swollen glands, others Endocrine: denies: excessive hunger, excessive sweating, excessive thirst, excessive urination, flushing, intolerance to cold, intolerance to heat, unexplained weight gain, unexplained weight loss, others Psychiatric: denies: anxiety, bipolar disorder, depression, hopeless, panic disorder, schizophrenia, sleepless, suicidal, others All Other Systems: Reviewed and Negative Physical Exam General Appearance: No Apparent Distress, Normal HEENT: Normal ENT Inspection, Pharynx Normal, TMs Normal Neck: Full Range of Motion, Non-Tender, Normal, Normal Inspection Respiratory: Chest Non-Tender, Lungs Clear, No Accessory Muscle Use, No Respiratory Distress, Normal Breath Sounds Cardiovascular: No Edema, No JVD, No Murmur, No Gallop, Normal Peripheral Pulses, Regular Rate/Rhythm Breast Exam: Deferred Gastrointestinal: No Organomegaly, Non Tender, No Pulsatile Mass, Normal Bowel Sounds, Soft Genitalia: Deferred Pelvic: Deferred Rectal: Deferred Extremities: No calf tenderness, Normal capillary refill, Normal inspection, Normal range of motion, Non-tender, No pedal edema Musculoskeletal : Apperance: Normal Neurologic: Alert, audiovisual librarian II-XII nml as Tested, No Motor Deficits, Normal Affect, Normal Mood, No Sensory Deficits Cerebellar Function: Normal Reflexes: Normal Skin: Dry, Normal Color, Warm Lymphatic: No Adenopathy Was a procedure done? Was a procedure done?: No Differential Dx Considerations may include: Urinary retention, medication refill X-Ray, Labs, Meds, VS Vital Signs Date Time Temp Pulse Resp B/P (MAP) Pulse Ox O2 Delivery O2 Flow Rate FiO2 12/21/24 15:01 98.7 84 16 145/90 (108) 96 98.7 12/21/24 15:01 84 17 96 Room Air 5/16/25 13:15 98.0 90 24 159/89 (112) 95 98.0 Lab Test 12/21/24 14:33 12/21/24 14:22 Range/Units White Blood Count 8.6 4.4-10.8 10^3/uL Red Blood Count 4.50 4.5-5.90 10^6/uL Hemoglobin 14.0 13.5-17.5 g/dL Hematocrit 42.0 41.0-53.0 % Mean Corpuscular Volume 93.2 80.0-100.0 fL Mean Corpuscular Hemoglobin 31.1 28.0-32.0 pg Mean Corpuscular Hemoglobin Concent 33.4 32.0-36.0 g/dL Red Cell Distribution Width 13.3 11.8-14.3 % Platelet Count 255 140-450 10^3/uL Mean Platelet Volume 7.4 6.9-10.8 fL Neutrophils (%) (Auto) 76.9 37.0-80.0 % Lymphocytes (%) (Auto) 17.1 10.0-50.0 % Monocytes (%) (Auto) 4.5 0.0-12.0 % Eosinophils (%) (Auto) 1.0 0.0-7.0 % Basophils (%) (Auto) 0.5 0.0-2.0 % Neutrophils # (Auto) 6.6 1.6-8.6 10 ^3/uL Lymphocytes # (Auto) 1.5 0.4-5.4 10 ^3/uL Monocytes # (Auto) 0.4 0-1.3 10 ^3/uL Eosinophils # (Auto) 0.1 0-0.8 10 ^3/uL Basophils # (Auto) 0 0-0.2 10 ^3/uL Nucleated Red Blood Cells 0.0 % Sodium Level 139 136-145 mmol/L Potassium Level 4.0 3.5-5.1 mmol/L Chloride Level 107 98-107 mmol/L Carbon Dioxide Level 24 20-31 mmol/L Anion Gap 8 5-15 Blood Urea Nitrogen 11 9-23 mg/dL Creatinine 0.98 0.700-1.30 mg/dL Glomerular Filtration Rate Calc 81 >90 mL/min BUN/Creatinine Ratio 11.2 10.0-20.0 Serum Glucose 103 74-106 mg/dL Calcium Level 10.3 8.7-10.4 mg/dL Urine Color Colorless Yellow Urine Clarity Clear Clear Urine pH 6.5 5.0-9.0 Urine Specific [place] 1.008 1.001-1.035 Urine Protein Negative Negative Urine Ketones Negative Negative Urine Blood Negative Negative /uL Urine Nitrite Negative Negative Urine Bilirubin Negative Negative Urine Urobilinogen Normal Negative mg/dL Urine Leukocyte Esterase Negative Negative /uL Urine RBC 1 0 - 3 /hpf Urine Microscopic WBC < 1 0-3 /HPF Urine Squamous Epithelial Cells None seen <5 /hpf Urine Bacteria None seen None Seen /hpf Urine Glucose Normal Normal mg/dL Time of 1ST Reevaluation: 14:58 Reevaluation 1ST: Unchanged Patient Education/Counseling: Diagnosis, Treatment, Prognosis Family Education/Counseling: No Family Present Departure 1 Departure Time of Disposition: 15:38 (Patient presented for medication refill. We will give patient his Flomax and discharge patient home with outpatient follow up) Impression: Primary Impression: Medication refill Disposition: 01 HOME / SELF CARE / HOMELESS Condition: Stable Referrals: MARCO DECKER MD Additional Instructions: Your medication was refilled. Please follow up with the urologist as soon as possible. e-Prescriptions Tamsulosin Hcl (Flomax) 0.4 Mg Cap 1 CAP PO DAILY, #30 CAP 11 Refills Prov: RAUL HANSON MD 12/21/24 Discharged With: Self Critical Care Note Critical Care Time?: No Stability Stability form required: No I personally scribed for RAUL HANSON MD ([email or web address]) on 12/21/24 at 14:37. Electronically submitted by Rosalba Lyles ([email or web address]). RAUL HANSON MD December 21, 2024 14:37
[2024-12-21 14:41] LABS: Urine Blood Negative /uL (Negative); Urine Clarity Clear (Clear); Urine Color Colorless (Yellow); Urine Protein, UAD Negative (Negative); Urine Specific Gravity 1.008 (1.001-1.035); Urine Squamous Epithelial Cell None Seen /hpf (<5); Urine Urobilinogen Normal (Negative); Urine WBC < 1 /HPF (0-3); Urine pH 6.5 (5.0-9.0)
[2024-12-21 14:51] LABS: Basophils # (auto) 0 10 ^3/uL (0-0.2); Basophils % (auto) 0.5 % (0.0-2.0); Eosinophils # (auto) 0.1 10 ^3/uL (0-0.8); Lymphocytes # (auto) 1.5 10 ^3/uL (0.4-5.4); Lymphocytes % (auto) 17.1 % (10.0-50.0); Mean Corpuscular Hemoglobin 31.1 pg (28.0-32.0); Mean Corpuscular Hgb Conc. 33.4 g/dL (32.0-36.0); Mean Corpuscular Volume 93.2 fL (80.0-100.0); Monocytes # (auto) 0.4 10 ^3/uL (0-1.3); Monocytes % (auto) 4.5 % (0.0-12.0); Neutrophils # (auto) 6.6 10 ^3/uL (1.6-8.6); Neutrophils % (auto) 76.9 % (37.0-80.0); Platelet Count (auto) 255 10^3/uL (140-450); Red Cell Distribution Width 13.3 % (11.8-14.3); White Blood Cell 8.6 10^3/uL (4.4-10.8)
[2024-12-21 15:03] LABS: Chloride 107 mmol/L (98-107); Sodium 139 mmol/L (136-145)
[2024-12-21 15:04] LABS: Anion Gap 8 (5-15); Carbon Dioxide 24 mmol/L (20-31)
[2024-12-21 15:05] LABS: Calcium 10.3 mg/dL (8.7-10.4)
[2024-12-21 15:09] LABS: Glucose 103 mg/dL (74-106)
[2024-12-21 15:10] LABS: BUN/Creatinine Ratio 11.2 (10.0-20.0); Blood Urea Nitrogen 11 mg/dL (9-23)
[2024-12-21] MEDS ORDERED: TAMS-35 PO (15:39)
[2024-12-21] MEDS: TAMSULOSIN HYDROCHLORIDE 0.4 MG CAP PO ONE (16:11)
[2024-12-21 16:18] VITALS: BP 149/93; PULSE 85; RESP 17; TEMP 98.7; O2SAT 95
== END 2024-12-21 16:22 | disposition home or self-care (01) ==
LOC: EDBD 13:15 → ER 13:18
DX: R30.0 Dysuria (principal); I10 Essential (primary) hypertension; E78.5 Hyperlipidemia, unspecified; M19.90 Unspecified osteoarthritis, unspecified site; N40.0 Benign prostatic hyperplasia without lower urinary tract symptoms; Z76.0 Encounter for issue of repeat prescription; Z79.899 Other long term (current) drug therapy; Z88.0 Allergy status to penicillin; Z88.6 Allergy status to analgesic agent
CPT/HCPCS: 36415; 80048; 81001; 85025